=== PATIENT | male | born 1930 | race Caucasian/White ===

== ENCOUNTER 2019-04-27 18:06 | Inpatient (IN) | payer OTHER ==
--- NOTE | 2019-04-27 18:32 | PDOC ---
History of Present Illness - General Chief Complaint: Shortness of Breath Stated Complaint: ADMISION PE Time Seen by Provider: 04/27/19 18:31 Past History - Past Medical History Allergies/Adverse Reactions: Allergies Allergy/AdvReac Type Severity Reaction Status Date / Time No Known Allergies Allergy Unverified 04/27/19 18:11 Home Medications: Ambulatory Orders Aspirin [Aspir 81] 81 mg PO DAILY 07/26/12 Glucosamine/Chondro Wilson A [Cosamin Ds Tablet] 1 each PO DAILY tablet 07/26/12 Lutein 10 mg PO DAILY tablet 07/26/12 Preservision Softgel 1 each PO DAILY capsule 07/26/12 Amlodipine Besylate 2.5 mg PO DAILY tablet 11/25/16 Atorvastatin Calcium 20 mg PO DAILY tablet 11/25/16 Biotin 2,500 mcg PO ASDIR capsule 11/25/16 Budesonide [Budesonide Ec] 3 mg PO TID #7 11/25/16 Cyanocobalamin (Vitamin B-12) [B-12] 500 mcg PO DAILY tablet 11/25/16 Melatonin/Pyridoxine HCl (B6) [Melatonin 5 Mg Tablet] 1 each PO tablet Mesalamine [Lialda] 1.2 gm PO TID PRN 11/25/16 Gabapentin 100 mg PO QID #120 capsule 06/29/18 Gabapentin 300 mg PO QID 30 Days #120 capsule 07/20/18 Cancer: Yes COPD: Yes HTN: Yes Medical Decision Making - Medical Decision Making 04/27/19 18:34 HPI: 88yo M hx "25% aortic capacity" s/p TAVR 2 weeks ago at [facility] on Plavix, HTN, HLD, BPH, "peripheral vascular disease (s/p 2 groin stents)", emphysema, smoking, stage 4 lung CA (2016, s/p Keytiuda immunotherapy, no radiation or chemo), 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 Pt states had some SOB ever since surgery, but then worsened suddenly on Tuesday, at rest, constant, worsened since then, saw Dr Montoya yesterday, CTA today, states SOB resolved on own today. Denies chest pain, cough, wheezing, palpitations, leg swelling, calf tenderness, headache, lightheadedness, N/V, F/C , numbness/tingling, abdominal pain, diarrhea, weakness, hx DVT/PE, recent travel. States has been taking Plavix 75mg daily since surgery. Also c/o penile irritation x2wks that is getting ointment for. Endorse chronic lower back pain 2 /2 "L3-4 lesion". ROS: Constitutional: Negative for chills, fever, fatigue, diaphoresis. HENT: Negative for sore throat, rhinorrhea, congestion. Eyes: Positive for vision loss 2/2 macular degeneration. Respiratory: Positive for shortness of breath. Negative for cough, and wheezing. Cardiovascular: Negative for chest pain, palpitations, and leg swelling. Gastrointestinal: Negative for abdominal pain, blood in stool, constipation, diarrhea, nausea, and vomiting. Genitourinary: Positive for penile irritation. Negative for dysuria, flank pain , and hematuria. Musculoskeletal: Positive for chronic lower back pain. Negative for myalgias, and neck pain. Skin: Negative for rash. Neurological: Negative for light-headedness, dizziness, vertigo, syncope, weakness, numbness and headaches. Psychiatric/Behavioral: Negative for behavioral problems and confusion. PE: Gen: Alert, NAD, comfortable-appearing. HEENT: PERRL, EOMI, MMM, NCAT. No conjunctival pallor. Sclera are non-icteric. CV: Regular rate and rhythm. No murmurs, rubs, or gallops. PULM: No resp distress. CTAB, no wheezes, rales, or rhonchi. ABD: soft, NT/ND, no rebound tenderness or guarding, no CVA tenderness. BACK: +ttp l-spine. No TTP of c/t-spine. No step-offs or deformities. MSK: No bony deformities. 2+ pulses in all extremities. NEURO: AAOx3. PERRL. No gross CN deficits. Strength and sensation grossly intact throughout. EXTREMITIES: No cyanosis. No clubbing. No edema. No calf tenderness. PSYCH: Normal mood and thought pattern. SKIN: Warm and dry. Normal capillary refill. No rashes. No jaundice. 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 Hemodynamically stable, afebrile, lungs CTAB, asymptomatic at this time. CTA impression 04/27/19 16:44: An acute embolus is identified within the lateral segmental branch of the right lower lobe. A small wedge-shaped left apical pulmonary opacity is noted at the site of a prior 4.3 x 2.3 cm primary neoplastic lesion identified on a CT study of 12/25/2015. Status post interval immunotherapy by history. The currently identified opacity is suggestive of focal scarring. Correlate with the results of imaging studies performed at a different facility. Status post interval transcatheter aortic valve implantation. The exam partially images the L3 vertebral body which demonstrates evidence of a fracture which is probably acute to subacute. SOB consistent with known PE from CTA. Also consider and evaluate for other etiologies such as CHF, PNA, COPD exacerbation, ACS/AL, arrhythmia, metabolic derangement, or anemia. Dr Caballero spoke with Dr Montoya for recs and admitted to hospitalist. -PE tx: heparin drip -Labs reviewed - add coags, T&S, Mg, cardiac profile, BNP, CXR, EKG -EKG: sinus rhythm w/occasional PVCs, 71bpm, normal intervals, normal axis, no e /o acute ischemia -Signed out to admitting team. Discharge - Discharge Information Problems reviewed: Yes Clinical Impression/Diagnosis: Pulmonary embolism Condition: Fair - Admission Yes - Follow up/Referral Referrals: Nasim Disla MD [Primary Care Provider] - - Patient Discharge Instructions - Post Discharge Activity
--- NOTE | 2019-04-27 18:34 | PDOC ---
Attending Attestation - Resident Resident Name: Catrina Greenezabeth - ED Attending Attestation I have performed the following: I have examined & evaluated the patient, The case was reviewed & discussed with the resident, I agree w/resident's findings & plan - HPI HPI: 04/27/19 19:02 88-year-old male with history of hypertension, hyperlipidemia, aortic stenosis status post TAVR (at [facility]), COPD, GERD, BPH presenting with progressive worsening of shortness of breath, x2 weeks since before his TAVR procedure, has been worsened over the past 4 days. He had outpatient studies done including CT scan which showed right-sided segmental PE, stable due to normal echocardiographic findings. Sent in for admission, anticoagulation PMD Dr Disla Cards Dr Montoya 04/27/19 19:54 04/27/19 20:17 - Physicial Exam PE: 04/27/19 18:34 Agree with the resident's HPI and PE as documented in the electronic medical record. NAD, elderly male, pleasant. EOMI, PERRL, nl conjunctiva, anicteric; neck supple. lungs clear, no respiratory distress. holosystolic murmur, normal rate, abdomen soft nontender. no rebound, guarding. Back nontender. LEDESMA x4, no focal neuro deficits. No peripheral edema. normal color for ethnicity, WWP. no calf tenderness. 04/27/19 19:52 04/27/19 20:17 - Medical Decision Making 04/27/19 19:00 Vital Signs Temp Pulse Resp BP Pulse Ox 98.4 F 76 18 157/63 100 04/27/19 18:11 04/27/19 18:11 04/27/19 18:11 04/27/19 18:11 04/27/19 18:11 Vital Signs Temp Pulse Resp BP Pulse Ox 98.4 F 76 18 157/63 100 04/27/19 18:11 04/27/19 18:11 04/27/19 18:11 04/27/19 18:11 04/27/19 18:11 VS reviewed wnl, mildly hypertensive, normal sats, no respiratory distress. HR normal. CT angios chest done earlier today as an outpatient with acute embolus involving the lateral segment branch of the right lower lobe, there is a small wedge-shaped left apical pulmonary opacity. This could be focal scarring. Tab are seen, partial images of L3 fracture is probably acute to subacute but patient is nontender there are no recent falls Laboratory results from earlier today were done with baseline creatinine 1.4 electrolytes are within normal limits. Cardiac profile is sent, to check for troponin/BNP for RV strain. bnp/trop unremarkable. Echo from outpatient done today, which showed normal LV function and no evidence of RV strain, EF is 50 to 55% status post TAVR, RV systolic pressure is within normal limits. spoke with Dr Montoya, Administrative Receptionist who sent in patient. agree with heparin gtt at 800 units/hr, given weight is low <54 kg, stable PE, admission admit to hospitalist service, tele monitor to dr Mederos, s/o to Dr Elder resident 04/27/19 20:14 04/27/19 20:15 04/27/19 20:17 Heart Score/ECG Review #1 ECG reviewed & interpreted by me at: 18:30 General ECG Interpretation: Sinus Rhythm, Normal Rate, Normal Intervals 04/27/19 19:01 EKG sinus rhythm at 71 bpm, intermittent PVCs, normal intervals, narrow QRS, nonspecific T wave abnormalities, some limitations with artifact
[2019-04-27] MEDS ORDERED: HEPARIN NA (PORCINE) 5,000 UNITS/ML 1ML VIAL IVPUSH ONE (19:06)
--- NOTE | 2019-04-27 19:17 | PN ---
Teaching Attending Note Name of Resident: Vincent Sarabia ATTENDING PHYSICIAN STATEMENT I saw and evaluated the patient. I reviewed the resident's note and discussed the case with the resident. I agree with the resident's findings and plan as documented. 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 SOB has worsened over the past 4 days and he got outpatient Chest/Thorax CTA which showed right-sided segmental PE and subacute/acute L3 vertebral body fracture. He had an ECHO which showed normal echocardiographic findings. Sent in for admission and heparin drip. Denies alcohol or illicit drug use. No recent travels. OBJECTIVE: Alert Vital Signs Period Temp Pulse Resp BP Sys/Martin Pulse Ox Last 24 Hr 98.4 F 76 18 157/63 100-100 HEENT: No Jaundice, eye redness or discharge, PERRLA, EOMI. Normocephalic, atraumatic. External ears are normal and hearing is grossly intact. No nasal discharge. Neck: Supple, nontender. No palpable adenopathy or thyromegaly. No JVD Chest: Good effort. Clear to auscultation and percussion. Heart: Regular. No S3, rub or murmur Abdomen: Not distended, soft, nontender and no HSM. No rebound or guarding. Normal bowel sounds. Ext: Peripheral pulses intact. No leg edema. Skin: Warm and dry. No petechiae, rash or ecchymosis. Neuro: Alert. Oriented x3. CN 2-12 grossly intact. Sensation grossly intact in all four extremities and DTR are symmetric. Psych: Appropriate mood and affect. Good insight. Current Medications Generic Name Dose Route Start Last Admin Trade Name Freq PRN Reason Stop Dose Admin Heparin Sodium (Porcine) 25, 500 mls @ 16 mls/hr 04/27/19 19:15 000 unit/ Sodium Chloride IV TITR DAVONTE Protocol 800 UNIT/HR Home Medications Medication Instructions Recorded Aspirin [Aspir 81] 81 mg PO DAILY 07/26/12 Glucosamine/Chondro Wilson A [Cosamin 1 each PO DAILY tablet 07/26/12 Ds Tablet] Lutein 10 mg PO DAILY tablet 07/26/12 Preservision Softgel 1 each PO DAILY capsule 07/26/12 Amlodipine Besylate 2.5 mg PO DAILY tablet 11/25/16 Atorvastatin Calcium 20 mg PO DAILY tablet 11/25/16 Biotin 2,500 mcg PO ASDIR capsule 11/25/16 Budesonide [Budesonide Ec] 3 mg PO TID #7 11/25/16 Cyanocobalamin (Vitamin B-12) 500 mcg PO DAILY tablet 11/25/16 [B-12] Melatonin/Pyridoxine HCl (B6) 1 each PO tablet 11/25/16 [Melatonin 5 Mg Tablet] Mesalamine [Lialda] 1.2 gm PO TID PRN 11/25/16 Gabapentin 100 mg PO QID #120 capsule 06/29/18 Gabapentin 300 mg PO QID 30 Days #120 capsule 07/20/18 Laboratory Tests 04/27/19 18:51 PT with INR 13.30 H INR 1.13 H PTT (Actin FS) 26.7 ASSESSMENT AND PLAN: 1. Pulmonary embolism - Outpatient Chest/Thorax CTA showed right-sided segmental PE and subacute/acute L3 vertebral body fracture. Patient started on IV heparin drip. EKG is pending. Will consult cardiology and pulmonary. Consult Ortho for vertebral fracture. Will continue comprehensive care for all of patients comorbid conditions including Oncology follow up for lung cancer.. 2. CKD? - Cause unclear - need nephrologic work up. Will consult nephrology and avoid nephrotoxic agents such as NSAIDS, aminoglycosides, contrast dyes and certain Alternative medicine products. 3. Anemia - Likely partly due to renal failure. Will do basic anemia work up including serial stool guaiacs, reticulocyte count and iron studies. 4. Hypertension - Restart suitable outpatient antihypertensive drugs when clinically appropriate. Revise regimen to ensure [id number] excellent BP control and clinical counselor patient on the injurious effects of uncontrolled hypertension. Nonpharmacologic measures to control hypertension like weight loss , salt restriction and exercise discussed. Importance of adherence to treatment regimen and attainment of normotension emphasized. 5. Tobacco Use Counseled on risks associated with tobacco use. We will provide patient all the necessary assistance to facilitate smoking cessation and prescribe Nicotine patch. 6. DVT prophylaxis - On IV Heparin drip. 7. Advance directives - Full code
[2019-04-27 19:28] LABS: INR 1.13 (0.83-1.09); PROTHROMBIN TIME (PATIENT) 13.3 SEC (9.7-13.0)
[2019-04-27 19:30] LABS: ACTIVATED PTT 26.7 SECONDS (25.2-36.5)
[2019-04-27] MEDS ORDERED: HEPARIN INFUSION - 25,000 UNITS/500 ML INFUS.BAG IVPB ONE (19:47)
[2019-04-27] MEDS: HEPARIN - 25,000 UNIT in SODIUM CHLORIDE 495 ML IV SCH (20:01)
[2019-04-27 20:09] LABS: MAGNESIUM 2.5 mg/dL (1.8-2.4)
[2019-04-27] MEDS: SODIUM CHLORIDE 1,000 ML IV SCH (21:07)
--- NOTE | 2019-04-27 22:17 | HP ---
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 Pt has complaint of SOB at rest, ever since his TAVR which is different from his pre-op SOB at exertion. Denies cough, orthopnea, sick contacts, h/o PE. SOB at rest prompted outpt visit w/ Dr Montoya on 04/26/19. Dr Montoya ordered outpt CTA chest which the patient completed on 04/27/19. Referred to the ED from the Radiology Suite. Pt and pt's endorse uncomplicated TAVR, uncomplicated post-TAVR course with a ~4d admission. Pt reached out to Dr Del Valle and was told that SOB at rest was not worrisome. At baseline, pt ambulates with cane. Post-operatively, ambulates with walker. Lives alone with . Daughter lives ~10mins away. Has VNS 3x/ weekly, home PT 3x/weekly. 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, dx 2015, s/p RT and Keytruda w/ chemoradiation course complicated by pneumonitis--resolved and colitis--resolved), Aortic Stenosis s/p TAVR( [place], 04/20/19) PAST SURGICAL HISTORY: b/l cataracts b/l iliac angioplasty + stents TAVR([facility], 04/20/19) Social History: Smoking: tobacco since 13y/o(cigarettes then pipe) Alcohol: 1/4 - 1glass w/ meals; several times a week Drugs: denies Allergies No Known Allergies Allergy (Unverified 04/27/19 18:11) HOME MEDICATIONS: Home Medications Medication Instructions Recorded Aspirin [Aspir 81] 81 mg PO DAILY 07/26/12 Lutein 10 mg PO DAILY tablet 07/26/12 Atorvastatin Calcium 20 mg PO DAILY tablet 11/25/16 Biotin 5,000 mcg PO ASDIR capsule 11/25/16 Clopidogrel Bisulfate [Plavix] 75 mg PO ONCE 04/27/19 Famotidine [Pepcid] 40 mg PO BID 04/27/19 Olmesartan Medoxomil [Benicar] 5 mg PO ONCE 04/27/19 Tizanidine HCl 2 mg PO HS 04/27/19 REVIEW OF SYSTEMS CONSTITUTIONAL: generalized weakness Absent: fever, chills, diaphoresis, malaise, loss of appetite, weight change HEENT: Absent: rhinorrhea, nasal congestion, throat pain, throat swelling, difficulty swallowing, mouth swelling, ear pain, eye pain, visual changes CARDIOVASCULAR: Absent: chest pain, syncope, palpitations, irregular heart rate, lightheadedness , peripheral edema RESPIRATORY: shortness of breath at rest Absent: cough, dyspnea with exertion, orthopnea, wheezing, stridor, hemoptysis GASTROINTESTINAL: constipation Absent: abdominal pain, abdominal distension, nausea, vomiting, diarrhea, melena , GENITOURINARY: Absent: dysuria, frequency, urgency, hesitancy, hematuria, flank pain, genital pain MUSCULOSKELETAL: Absent: myalgia, arthralgia, joint swelling, back pain, neck pain SKIN: Absent: rash, itching, pallor NEUROLOGIC: Absent: headache, focal weakness or paresthesias, dizziness, unsteady gait, seizure, mental status changes, bladder or bowel incontinence PHYSICAL EXAMINATION Vital Signs - 24 hr 04/27/19 04/27/19 18:08 18:11 Temperature 98.4 F Pulse Rate 76 Respiratory 18 Rate Blood Pressure 157/63 O2 Sat by Pulse 100 100 Oximetry (%) GENERAL: Awake, alert, and fully oriented. NAD HEAD: NC/AT. No temporal wasting EYES: Pupils equal, round and reactive to light, extraocular movements intact, sclera anicteric, conjunctiva clear. No lid lag. EARS, NOSE, THROAT: Poor dentition. Ears normal, nares patent. Moist mucous membranes. NECK: Normal range of motion, supple without lymphadenopathy, JVD, or masses. LUNGS: Breath sounds equal, clear to auscultation bilaterally. No wheezes, and no crackles. No accessory muscle use. Not on supplemental O2 HEART: Regular rate and rhythm, normal S1 and S2 without murmur, rub or gallop. ABDOMEN: Soft, nontender, not distended, no guarding, no rebound, no masses. MUSCULOSKELETAL: Normal range of motion at all joints. No bony deformities or tenderness. No CVA tenderness. UPPER EXTREMITIES: 2+ pulses, warm, well-perfused. No cyanosis. No peripheral edema. LOWER EXTREMITIES: 2+ pulses, warm, well-perfused. No calf tenderness. No peripheral edema. Right groin with steristrip bandages from femoral access. Femoral pulses 2+ NEUROLOGICAL: Cranial nerves II-XII intact. Normal speech. Gait not observed SKIN: Warm, dry, normal turgor, no rashes or lesions noted, normal capillary refill. Laboratory Results - last 24 hr 04/27/19 04/27/19 04/27/19 18:51 18:51 18:51 PT with INR 13.30 H INR 1.13 H PTT (Actin FS) 26.7 Magnesium 2.5 H Creatine Kinase 67 Troponin I < 0.02 B-Natriuretic Peptide 522.5 H Blood Type Antibody Screen 04/27/19 18:51 PT with INR INR PTT (Actin FS) Magnesium Creatine Kinase Troponin I B-Natriuretic Peptide Blood Type A POSITIVE Antibody Screen Negative ASSESSMENT/PLAN: 88M w/ pmh of hearing deficiency, GERD, HTN, chronic tobacco usage, Lung Ca(dx 2016, s/p RT and Keytruda w/ chemoradiation course complicated by pneumonitis-- resolved and colitis--resolved), Aortic Stenosis s/p TAVR([facility], ) referred to ED by Dr Fisher d/t CTA Chest showing RLL segmental branch PE. Presented with complaint of shortness of breat at rest. Vitals in ED show nontachycardic, nontachypneic. EKG w/ intermittent PVC. Echo w/ LVEF 50-55%. CTA showing RLL segmental PE. Troponin neg x1. BNP ~ 522. #Pulmonary Embolism > CTA chest(04/27/19): RLL lateral segmental branch embolus, wedge-spaced opacity at Left pumonary apex(4.3 x 2.3)chronic Right apical pleural parenchymal , acute-subacute fracture of L3 vertebral body > EKG(04/27/19): NSR, occasional PVC, QTc 421 > Echo(04/27/19): LVEF 50-55%, impaired LV relaxation, borderline dilated LA > troponin neg x1 > BNP 522 - fu AM troponin - heparin gtt #Aortic Stenosis --s/p TAVR - echo w/o signs of significant AR, #Lung Ca w/ metastasis to L-spine --remission according to pt's --not an active issue - monitor # L3 acute-subacute fracture --possibly 2/2 previous l-spine mets - consider Ortho consult Visit type - Emergency Visit Emergency Visit: Yes ED Registration Date: 04/27/19 Care time: The patient presented to the Emergency Department on the above date and was hospitalized for further evaluation of their emergent condition. - New Patient This patient is new to me today: Yes Date on this admission: 04/28/19 - Critical Care Critical Care patient: No ATTENDING PHYSICIAN STATEMENT I saw and evaluated the patient. I reviewed the resident's note and discussed the case with the resident. I agree with the resident's findings and plan as documented. SUBJECTIVE: OBJECTIVE: ASSESSMENT AND PLAN:
--- NOTE | 2019-04-28 07:30 | CON.CARD ---
Consult Consult Specialty:: cardio - History of Present Illness Chief Complaint: sob History of Present Illness: 88 M with sob. pt followed closely by me in office for asymptomatic severe for > 1 yr, as well as lung cancer s/p immunotherapy at [facility] with minimal residual dz that has been stable on serial PET imaging. longtime former smoker, no formal dx of copd. has become very deconditioned and frail since treated for lung cancer. has developed severe pain of R hip/upper LE of ? neuropathic etiology (seen by several consultants)--on tizanidine for this with improvement developed sob 02/24 at rest, aggravated by exertion. saw pulm at [facility], allegedly rx'd inhalers, ? PFT results saw TAVR team at [facility] who reported to family that PFTs were underwhelming and rec'd TAVR--completed 04/12. postop course uneventful, discharged 04/14. pt and family noted sob never improved post-TAVR. ditto for worsened fatigue. on 04/24 he was noticeably more breathless at rest than usual. also noted wheezing at times. signif tachypnea with activity. he declined ER evaluation at that time. could not come to see me in office the next day b/c required assistance to travel--came 04/26. ECG then with mild sinus tach (90s), new mild nonspecific ST-Ts. sat 98-99% rest and after symptomatic ambulation. euvolemic. declined hosp admit. had echo and CTA at hospital yesterday: echo normal LV and RV, normal TAVR function (trace AI), no peric effusion. CTA with segmental PE--referred to ER, started on UFH gtt currently no sob or cp. c/o urinary hesitancy/obstruction PMH: CKD PAD s/p LE intervention remotely HTN HPL colitis - Alcohol/Substance Use Hx Alcohol Use: No - Smoking History Smoking history: Current every day smoker Have you smoked in the past 12 months: Yes Home Medications - Allergies Allergies/Adverse Reactions: Allergies Allergy/AdvReac Type Severity Reaction Status Date / Time No Known Allergies Allergy Unverified 04/27/19 18:11 - Home Medications Home Medications: Ambulatory Orders Aspirin [Aspir 81] 81 mg PO DAILY 07/26/12 Lutein 10 mg PO DAILY tablet 07/26/12 Atorvastatin Calcium 20 mg PO DAILY tablet 11/25/16 Biotin 5,000 mcg PO ASDIR capsule 11/25/16 Clopidogrel Bisulfate [Plavix] 75 mg PO ONCE 04/27/19 Famotidine [Pepcid] 40 mg PO BID 04/27/19 Olmesartan Medoxomil [Benicar] 5 mg PO ONCE 04/27/19 Tizanidine HCl 2 mg PO HS 04/27/19 Family Medical History Family History: Denies (no known cmp) Review of Systems - Review of Systems Constitutional: denies: Chills, Fever Eyes: denies: Eye Pain HENT: denies: Nasal Congestion Neck: denies: Stiffness Cardiovascular: denies: Palpitations Respiratory: denies: Orthopnea, PND Gastrointestinal: denies: Diarrhea, Rectal Bleeding Genitourinary: denies: Burning, Hematuria Musculoskeletal: denies: Muscle Pain Integumentary: denies: Rash Neurological: denies: Numbness, Seizure, Syncope Endocrine: denies: Excessive Sweating Hematology/Lymphatic: denies: Excessive Bleeding Vital Signs: Vital Signs Temperature 97.9 F 04/28/19 05:25 Pulse Rate 63 04/28/19 05:25 Respiratory Rate 17 04/28/19 05:25 Blood Pressure 132/41 L 04/28/19 05:25 O2 Sat by Pulse Oximetry (%) 99 04/27/19 22:00 Constitutional: Yes: Well Nourished, No Distress Eyes: No: Sclera Icterus HENT: No: Nasal Congestion Neck: No: Decreased ROM Respiratory: Yes: CTA Bilaterally. No: Accessory Muscle Use, Rales, Wheezes Gastrointestinal: Yes: Normal Bowel Sounds, Tenderness (+ suprapubic region). No: Distention, Hepatomegaly, Palpable Mass Cardiovascular: Yes: Regular Rate and Rhythm JVD: No Carotid Bruit: No PMI: Non-Displaced Heart Sounds: Yes: S1, S2. No: Gallop Murmur: No: Systolic Murmur, Diastolic Murmur Musculoskeletal: Yes: Other (No kyphosis) Extremities: No: Cool, Cyanosis Edema: No Peripheral Pulses: 2+ Left Carotid, 2+ Right Carotid, 2+ Left Doralis Pedis, 2+ Right Dorsalis Pedis Integumentary: No: Jaundice Neurological: Yes: Alert, Oriented (x3) Psychiatric: No: Agitated - Other Data Labs, Other Data: INR, PTT INR 1.13 (0.83-1.09) H 04/27/19 18:51 Troponin, BNP 04/27/19 04/27/19 18:51 18:51 Troponin I < 0.02 B-Natriuretic Peptide 522.5 H Troponin, BNP 04/27/19 04/27/19 18:51 18:51 Troponin I < 0.02 B-Natriuretic Peptide 522.5 H Assessment/Plan Echo 04/27/19: nl LVEF. nl RV. trace AI s/p TAVR. no pulm HTN ECG: NSR, normal axis, PVCs. no q's or ST-T tele: NSR, PVCs PE (segmental branch): -no RV enlargement/hypo. BNP 500 (low GFR). trop negative. no hypotension. -normal sats on RA -provoked by lung malignancy and prolonged sedentary status -however, since these risk factors are likely permanent, he likely would benefit from indefinite AC: ? NOAC vs lovenox (given malignancy-associated)-- duration and choice of AC agent will be deferred to heme-onc h/o urinary obstruction: -had retention s/p TAVR 04/13, also dx'd with phymosis there--being treated with local cream -currently c/o urine stream obstruction, suspect bladder enlarged with tenderness -had very traumatic jackson attempt by RN at [place]--would consult for jackson insertion -please reconcile home meds (he is on an alpha carisa and ? finasteride)-- resume regimen s/p TAVR: -normal valve fxn HTN: -on olmesartan 5 qd at home -bp stable here, same meds CKD: -creat ranges 1.2-1.4 -improved today s/p IVF--cont fluids x 24 hrs from contrast--until 5 pm 04/28 anemia: -post-TAVR hgb 10's, improved here -observe trend on AC lung cancer: -stable, minimal dz s/p immunotherapy -per onc ([facility]) ? copd: -suspect the chronic component of his sob at rest for 2 mo, which did not improve post-TAVR is copd related. has plans for outpt pulm eval
[2019-04-28 07:34] LABS: BASO % 0.9 % (0-2.0); EOS % 2.8 % (0-4.5); HEMATOCRIT 28.4 % (35.4-49); HEMOGLOBIN 9.2 GM/dL (11.7-16.9); LYMPH % 13.2 % (8-40); MCH 24.6 pg (25.7-33.7); MCHC 32.6 g/dl (32.0-35.9); MEAN CELL VOLUME 75.4 fl (80-96); MEAN PLT VOLUME 8.9 fl (7.5-11.1); MONO % 8.2 % (3.8-10.2); NEUT % 74.9 % (42.8-82.8); PLATELET COUNT 211 K/MM3 (134-434); RBC 3.77 M/mm3 (4.00-5.60); RDW 17.5 % (11.9-15.9); WHITE BLOOD COUNT 6.5 K/mm3 (4.0-10.0)
[2019-04-28 09:20] LABS: CALCIUM 7.3 mg/dL (8.5-10.1); CREATININE 1.1 mg/dL (0.55-1.3); MAGNESIUM 2.1 mg/dL (1.8-2.4); PHOSPHOROUS 3.7 mg/dL (2.5-4.9)
[2019-04-28] MEDS: TAMSULOSIN HCL 0.4 MG CAP PO SCH (11:40)
[2019-04-28] MEDS: FINASTERIDE 5 MG TABLET (FP) PO SCH (11:40)
[2019-04-28] MEDS: CLOPIDOGREL BISULFATE 75 MG TABLET (FP) PO SCH (11:40)
[2019-04-28] MEDS: HEPARIN - 25,000 UNIT in SODIUM CHLORIDE 495 ML IV SCH (12:31)
--- NOTE | 2019-04-28 13:22 | CON.PULM ---
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 Reports shortness of breath without chest pain. No palpitations. No fevers, chills or sweats. No cough or wheezing. No prior clots. Mostly sedentary in a chair at home. Walks with a walker. Smokes pipes. - History Source History Provided By: Patient, Family Member Limitations to Obtaining History: No Limitations - Past Medical History Cardio/Vascular: Yes: Aortic Stenosis, HTN - Alcohol/Substance Use Hx Alcohol Use: No - Smoking History Smoking history: Current every day smoker Have you smoked in the past 12 months: Yes Home Medications - Allergies Allergies/Adverse Reactions: Allergies Allergy/AdvReac Type Severity Reaction Status Date / Time No Known Allergies Allergy Unverified 04/27/19 18:11 - Home Medications Home Medications: Ambulatory Orders Aspirin [Aspir 81] 81 mg PO DAILY 07/26/12 Lutein 10 mg PO DAILY tablet 07/26/12 Atorvastatin Calcium 20 mg PO DAILY tablet 11/25/16 Biotin 5,000 mcg PO ASDIR capsule 11/25/16 Clopidogrel Bisulfate [Plavix] 75 mg PO ONCE 04/27/19 Famotidine [Pepcid] 40 mg PO BID 04/27/19 Olmesartan Medoxomil [Benicar] 5 mg PO ONCE 04/27/19 Tizanidine HCl 2 mg PO HS 04/27/19 Review of Systems - Review of Systems Constitutional: reports: Weakness. denies: Chills, Fever Eyes: denies: Recent Change in Vision HENT: denies: Nasal Congestion, Throat Pain Neck: denies: Stiffness, Tenderness Cardiovascular: reports: Shortness of Breath. denies: Chest Pain, Edema, Palpitations Respiratory: reports: SOB on Exertion. denies: Cough, Hemoptysis, Wheezing Gastrointestinal: denies: Abdominal Pain, Nausea, Vomiting Genitourinary: denies: Dysuria, Hematuria Neurological: denies: Dizziness, Headache Endocrine: denies: Unexplained Weight Loss Physical Exam Vital Sings: Vital Signs Temperature 97.6 F 04/28/19 09:00 Pulse Rate 66 04/28/19 09:00 Respiratory Rate 18 04/28/19 09:00 Blood Pressure 136/51 L 04/28/19 09:00 O2 Sat by Pulse Oximetry (%) 99 04/28/19 09:00 Constitutional: Yes: Calm Eyes: Yes: Conjunctiva Clear, EOM Intact HENT: Yes: Atraumatic, Normocephalic Neck: Yes: Supple, Trachea Midline Cardiovascular: Yes: Regular Rate and Rhythm Respiratory: Yes: Diminished (decreased breath sounds at the bases) ...Clubbing: No Gastrointestinal: Yes: Normal Bowel Sounds, Soft. No: Tenderness Edema: No Neurological: Yes: Alert, Oriented Labs: CBC, BMP 04/28/19 07:03 04/28/19 07:03 Imaging - Results Chest X-ray: Report Reviewed, Image Reviewed Cat Scan: Report Reviewed, Image Reviewed (MINO scarring, RLL subsegmental PE) Problem List - Problems (1) Pulmonary embolism Code(s): I26.99 - OTHER PULMONARY EMBOLISM WITHOUT ACUTE COR PULMONALE Assessment/Plan Acute Subsegmental Pulmonary Emboli Recent TAVR LV Diastolic Dysfunction h/o Metastatic Lung Ca Hyperlipidemia HTN BPH - continue anticoagulation - LE dopplers - inhaled bronchodilators as needed - O2 to keep SpO2>90% - hematology consulted for choice of anticoagulation given history of lung cancer Thank you for this consult Travis Arauz MD
--- NOTE | 2019-04-28 14:12 | EKG ---
Test Reason : Blood Pressure : / mmHG Vent. Rate : 071 BPM Atrial Rate : 071 BPM P-R Int : 122 ms QRS Dur : 068 ms QT Int : 388 ms P-R-T Axes : 000 036 055 degrees QTc Int : 421 ms SINUS RHYTHM WITH OCCASIONAL PREMATURE VENTRICULAR COMPLEXES OTHERWISE NORMAL ECG NO PREVIOUS ECGS AVAILABLE Confirmed by NAUN HUNT MD ([id number]) on 04/28/2019 2:12:26 PM Referred By: Confirmed By:NAUN HUNT MD
--- NOTE | 2019-04-28 16:50 | PN ---
Progress Note (short form) - Note Progress Note: Patient is feeling better with no acute distress. Vital Signs Temperature 98.1 F 04/28/19 14:35 Pulse Rate 64 04/28/19 14:35 Respiratory Rate 16 04/28/19 14:35 Blood Pressure 140/58 L 04/28/19 14:35 O2 Sat by Pulse Oximetry (%) 99 04/28/19 09:00 GENERAL: The patient is awake, alert, and fully oriented, in no acute distress. HEAD: Normal with no signs of trauma. EYES: PERRL, extraocular movements intact, sclera anicteric, conjunctiva clear. ENT: Ears normal, oropharynx clear without exudates, moist mucous membranes. NECK: Trachea midline, full range of motion, supple. LUNGS: Breath sounds equal, clear to auscultation bilaterally, no wheezes, no crackles, no accessory muscle use. HEART: Regular rate and rhythm, S1, S2 without murmur, rub or gallop. ABDOMEN: Soft, Nt,ND, normoactive bowel sounds, no guarding, no rebound, no hepatosplenomegaly, no masses. EXTREMITIES: 2+ pulses, warm, well-perfused, no edema. NEUROLOGICAL: Cranial nerves II through XII grossly intact. Normal speech, gait not observed. PSYCH: Normal mood, normal affect. SKIN: Warm, dry, normal turgor, no rashes or lesions noted CBCD WBC 6.5 K/mm3 (4.0-10.0) 04/28/19 07:03 RBC 3.77 M/mm3 (4.00-5.60) L 04/28/19 07:03 Hgb 9.2 GM/dL (11.7-16.9) L 04/28/19 07:03 Hct 28.4 % (35.4-49) L D 04/28/19 07:03 MCV 75.4 fl (80-96) L 04/28/19 07:03 MCHC 32.6 g/dl (32.0-35.9) 04/28/19 07:03 RDW 17.5 % (11.9-15.9) H 04/28/19 07:03 Plt Count 211 K/MM3 (134-434) D 04/28/19 07:03 MPV 8.9 fl (7.5-11.1) 04/28/19 07:03 CMP Sodium 142 mmol/L (136-145) 04/28/19 07:03 Potassium 4.0 mmol/L (3.5-5.1) 04/28/19 07:03 Chloride 116 mmol/L (98-107) H 04/28/19 07:03 Carbon Dioxide 18 mmol/L (21-32) L 04/28/19 07:03 Anion Gap 9 MMOL/L (8-16) 04/28/19 07:03 BUN 28.0 mg/dL (7-18) H 04/28/19 07:03 Creatinine 1.1 mg/dL (0.55-1.3) 04/28/19 07:03 Random Glucose 83 mg/dL (74-106) 04/28/19 07:03 Calcium 7.3 mg/dL (8.5-10.1) L 04/28/19 07:03 CARDIAC ENZYMES Creatine Kinase 67 U/L (26-308) 04/27/19 18:51 Troponin I 0.03 ng/ml (0.00-0.05) 04/28/19 07:03 Current Medications Generic Name Dose Route Start Last Admin Trade Name Freq PRN Reason Stop Dose Admin Aspirin 81 mg 04/29/19 10:00 Ecotrin - PO DAILY [facility] Atorvastatin Calcium 20 mg 04/28/19 22:00 Lipitor - PO HS [facility]ON[facility] Clopidogrel Bisulfate 75 mg 04/28/19 11:30 04/28/19 11:40 Plavix - PO 75 mg DAILY [facility] Administration Clotrimazole 1 applic 04/28/19 22:00 Lotrimin 1% Cream - TP BID [facility]ONTE Finasteride 5 mg 04/28/19 11:30 04/28/19 11:40 Proscar - PO 5 mg DAILY [facility] Administration Heparin Sodium (Porcine) 25, 500 mls @ 16 mls/hr 04/27/19 19:15 04/28/19 12: 31 000 unit/ Sodium Chloride IV 850 unit/hr TITR [facility]ONTE 17 mls/hr Administration Protocol 800 UNIT/HR Sodium Chloride 1,000 mls @ 75 mls/hr 04/27/19 20:30 04/27/19 21:07 Normal Saline - IV 75 mls/hr ASDIR [facility] Administration Tamsulosin HCl 0.4 mg 04/28/19 11:30 04/28/19 11:40 Flomax - PO 0.4 mg 0830 [facility] Administration Valsartan 40 mg 04/29/19 10:00 Diovan - PO DAILY [facility] Home Medications Medication Instructions Recorded Aspirin [Aspir 81] 81 mg PO DAILY 07/26/12 Lutein 10 mg PO DAILY tablet 07/26/12 Atorvastatin Calcium 20 mg PO DAILY tablet 11/25/16 Biotin 5,000 mcg PO ASDIR capsule 11/25/16 Clopidogrel Bisulfate [Plavix] 75 mg PO ONCE 04/27/19 Famotidine [Pepcid] 40 mg PO BID 04/27/19 Olmesartan Medoxomil [Benicar] 5 mg PO ONCE 04/27/19 Tizanidine HCl 2 mg PO HS 04/27/19 Clotrimazole 15 gm TP BID 04/28/19 CTA Chest: RLL segmental branch PE Echo w/ LVEF 50-55%. Asessment and plan: Patient is an 88yo male with pmhX OF GERD, HTN, tobacco dependency , Lung Ca (dx 2015, s/p RT and Keytruda w/ chemoradiation course ), Aortic Stenosis s/p TAVR ( 04/20/19) referred to ED by Dr Fisher d/t . Presented with SOB and was found to have RLL PE. CTA showing RLL segmental PE. #Pulmonary Embolism: RLL lateral segmental branch embolus on heparin gtt continue #Aortic Stenosis --s/p TAVR, echo w/o signs of significant AR, , cardio is on the case #Lung Ca w/ metastasis to L-spine ; will get oncology consult dr Wilkinson. # L3 acute-subacute fracture --possibly due to L-spine mets # Hx of urinary obstruction: had retention s/p TAVR 04/13, also dx'd with phymosis there; being treated with local cream lotrimin as per Dr. Montoya's note: patient has an enlarged bladder s/p traumatic jackson attempt by RN at [place]--would consult for jackson insertion s/p TAVR: normal valve fxn DVt Px Heparin Visit type - Emergency Visit Emergency Visit: Yes ED Registration Date: 04/27/19 Care time: The patient presented to the Emergency Department on the above date and was hospitalized for further evaluation of their emergent condition. - New Patient This patient is new to me today: Yes Date on this admission: 04/28/19 - Critical Care Critical Care patient: No - Discharge Referral Referred to [facility] No
--- NOTE | 2019-04-28 19:37 | CONSULT ---
Consult Consult Specialty:: Heme/onc Referred by:: Dr. Mederos Reason for Consultation:: PE - History of Present Illness Chief Complaint: SOB History of Present Illness: 88M with HTN, HLD, BPH, metastatic lung cancer, and severe s/p TAVR on , on DAPT, admitted with worsening shortness of breath for 2 weeks. Outpatient CTA showed right-sided segmental PE and subacute/acute L3 vertebral body fracture. Admitted and started on UFH. Pt is followed at [place] for lung cancer by Dr. Landry. Per , he was diagnosed in 2016 and treated with Keytruda x several cycles and radiation to involved lumbar vertebrae. He has since been on surveillance with regular PET/ CT with stable disease and no further treatment. Records are not available. Continues to have SOB but denies chest pain. No prior history of VTE. Has had occasional epistaxis while on aspirin but no hx of significant GIB or ICH in the past. - Past Medical History Cardio/Vascular: Yes: Aortic Stenosis, HTN - Alcohol/Substance Use Hx Alcohol Use: No - Smoking History Smoking history: Current every day smoker Have you smoked in the past 12 months: Yes Home Medications - Allergies Allergies/Adverse Reactions: Allergies Allergy/AdvReac Type Severity Reaction Status Date / Time No Known Allergies Allergy Unverified 04/27/19 18:11 - Home Medications Home Medications: Ambulatory Orders Aspirin [Aspir 81] 81 mg PO DAILY 07/26/12 Lutein 10 mg PO DAILY tablet 07/26/12 Atorvastatin Calcium 20 mg PO DAILY tablet 11/25/16 Biotin 5,000 mcg PO ASDIR capsule 11/25/16 Clopidogrel Bisulfate [Plavix] 75 mg PO ONCE 04/27/19 Famotidine [Pepcid] 40 mg PO BID 04/27/19 Olmesartan Medoxomil [Benicar] 5 mg PO ONCE 04/27/19 Tizanidine HCl 2 mg PO HS 04/27/19 Clotrimazole 15 gm TP BID 04/28/19 Review of Systems - Review of Systems Constitutional: reports: Weakness (generalized) Cardiovascular: reports: Shortness of Breath. denies: Chest Pain Respiratory: reports: Exercise Intolerance, SOB, SOB on Exertion Gastrointestinal: denies: Melena, Rectal Bleeding Hematology/Lymphatic: reports: Easily Bruised Physical Exam Vital Signs: Vital Signs Temperature 98.1 F 04/28/19 14:35 Pulse Rate 64 04/28/19 14:35 Respiratory Rate 16 04/28/19 14:35 Blood Pressure 140/58 L 04/28/19 14:35 O2 Sat by Pulse Oximetry (%) 99 04/28/19 09:00 Constitutional: Yes: No Distress, Calm Eyes: Yes: Conjunctiva Clear Cardiovascular: Yes: Regular Rate and Rhythm Respiratory: Yes: Regular, CTA Bilaterally Gastrointestinal: Yes: Soft. 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 Stated on UFH. Discussed anticoagulation options with patient and -- Lovenox vs Eliquis ( for which there is less data when associated with cancer). would like to discuss with rest of family. Both are reasonable for [employer] continuous churn AC. Recommend switching from UFH to Lovenox 1 mg/kg BID. Would treat with Lovenox for 7 days to avoid high dose Eliquis (given concurrent DAPT), then can switch to Eliquis 5 mg BID if patient prefers. Would discuss with cardiology whether both aspirin and clopidogrel are needed now that patient is on AC. Patient also with iron deficiency anemia. Can give Venofer 200 mg daily x 5 while in the hospital or start PO supplementation if patient prefers. ? bleeding source.
[2019-04-28] MEDS: SODIUM CHLORIDE 1,000 ML IV SCH (22:00)
[2019-04-28] MEDS: ATORVASTATIN CA 20 MG TABLET (FP) PO SCH (22:00)
[2019-04-28] MEDS: CLOTRIMAZOLE 1% CREAM 15 GM TUBE TP SCH (22:03)
[2019-04-28] MEDS ORDERED: PT OWN MED DRAWER 7, Y5N ONE (23:24)
--- NOTE | 2019-04-29 08:44 | PN ---
Progress Note, Physician Chief Complaint: SOB History of Present Illness: no sob (remains in bed only) no cp no palpit, syncope no melena passing urine but feels like incomplete emptying. no suprapubic pain ex cigs - Current Medication List Current Medications: Active Medications Aspirin (Ecotrin -) 81 mg PO DAILY [facility] Atorvastatin Calcium (Lipitor -) 20 mg PO HS [facility] Last Admin: 04/28/19 22:00 Dose: 20 mg Clopidogrel Bisulfate (Plavix -) 75 mg PO DAILY [facility] Last Admin: 04/28/19 11:40 Dose: 75 mg Clotrimazole (Lotrimin 1% Cream -) 1 applic TP BID [facility] Last Admin: 04/28/19 22:03 Dose: 1 applic Finasteride (Proscar -) 5 mg PO DAILY [facility] Last Admin: 04/28/19 11:40 Dose: 5 mg Heparin Sodium (Porcine) 25, (000 unit/ Sodium Chloride) 500 mls @ 16 mls/hr IV TITR [facility]; Protocol Last Admin: 04/28/19 12:31 Dose: 850 unit/hr, 17 mls/hr Sodium Chloride (Normal Saline -) 1,000 mls @ 75 mls/hr IV ASDIR [facility] Last Admin: 04/28/19 22:00 Dose: 75 mls/hr Tamsulosin HCl (Flomax -) 0.4 mg PO 0830 [facility] Last Admin: 04/28/19 11:40 Dose: 0.4 mg Valsartan (Diovan -) 40 mg PO DAILY [facility] - Objective Vital Signs: Vital Signs Temperature 98.2 F 04/29/19 06:00 Pulse Rate 58 L 04/29/19 06:00 Respiratory Rate 20 04/29/19 06:00 Blood Pressure 135/60 04/29/19 06:00 O2 Sat by Pulse Oximetry (%) 99 04/28/19 20:59 Constitutional: Yes: No Distress, Calm Eyes: No: Sclera Icterus HENT: No: Nasal Congestion Cardiovascular: Yes: Regular Rate and Rhythm, S1, S2, Other (PMI non diplaced). No: JVD, Gallop, Murmur Respiratory: Yes: CTA Bilaterally. No: Accessory Muscle Use, Rales, Wheezes Gastrointestinal: Yes: Normal Bowel Sounds, Soft. No: Tenderness Musculoskeletal: Yes: Other (No kyphosis) Extremities: No: Cold, Cyanosis Edema: No Integumentary: No: Jaundice Neurological: Yes: Alert, Oriented (x3) Psychiatric: No: Agitated Labs: CBC, BMP 04/28/19 07:03 04/28/19 07:03 INR, PTT INR 1.13 (0.83-1.09) H 04/27/19 18:51 Assessment/Plan Echo 04/27/19: nl LVEF. nl RV. trace AI s/p TAVR. no pulm HTN ECG: NSR, normal axis, PVCs. no q's or ST-T tele: NSR, PVCs PE (segmental branch): -no RV enlargement/hypo. BNP 500 (low GFR). trop negative. no hypotension. -normal sats on RA -provoked by lung malignancy and prolonged sedentary status -onc input appreciated: rec lovenox or eliquis as reasonable long-term AC options. currently receiving wt based lovenox, pt and uneasy about administering this at home. rec teaching with pm dose tonight and if not comfortable, then can change to eliquis per heme rec anemia: -post-TAVR hgb 10's, 9s here, stable -iron indices c/w deficiency per heme -close monitoring of counts on AC--rpt ordered today -will pare back anti-PLT regimen once d/w TAVR team, as below h/o urinary obstruction: -had retention s/p TAVR 04/13, also dx'd with phymosis there--being treated with local cream -currently c/o urine stream incompletely emptying, back on home med regimen -had very traumatic jackson attempt by RN at [place], would need to insert -per hospitalist s/p TAVR: -normal valve fxn -will d/w structural valve team, likely will stop aspirin and use plavix along with AC agent for 6 mo duration HTN: -on olmesartan 5 qd at home -bp stable here, same meds CKD: -creat ranges 1.2-1.4 -improved today s/p IVF--cont fluids x 24 hrs from contrast--until 5 pm 04/28 lung cancer: -stable, minimal dz s/p immunotherapy -per onc ([facility]) ? copd: -suspect the chronic component of his sob at rest for 2 mo, which did not improve post-TAVR is copd related. has plans for outpt pulm eval
[2019-04-29] MEDS: ASPIRIN COATED 81 MG TABLET.EC PO SCH (09:48)
[2019-04-29] MEDS: VALSARTAN 40 MG TABLET (FP) PO SCH (09:48)
[2019-04-29] MEDS: TAMSULOSIN HCL 0.4 MG CAP PO SCH ×2 (09:48→21:11)
[2019-04-29] MEDS: CLOPIDOGREL BISULFATE 75 MG TABLET (FP) PO SCH (09:49)
[2019-04-29] MEDS: FINASTERIDE 5 MG TABLET (FP) PO SCH (09:49)
[2019-04-29] MEDS: CLOTRIMAZOLE 1% CREAM 15 GM TUBE TP SCH ×2 (09:49→21:11)
[2019-04-29 09:52] LABS: EOS % 2.3 % (0-4.5); HEMATOCRIT 30.3 % (35.4-49); HEMOGLOBIN 9.6 GM/dL (11.7-16.9); LYMPH % 14.6 % (8-40); MCH 24.3 pg (25.7-33.7); MCHC 31.6 g/dl (32.0-35.9); MEAN CELL VOLUME 77.1 fl (80-96); MEAN PLT VOLUME 9.8 fl (7.5-11.1); MONO % 8.5 % (3.8-10.2); NEUT % 73.6 % (42.8-82.8); PLATELET COUNT 207 K/MM3 (134-434); RBC 3.94 M/mm3 (4.00-5.60); RDW 18.2 % (11.9-15.9); WHITE BLOOD COUNT 6.6 K/mm3 (4.0-10.0)
[2019-04-29] MEDS: HEPARIN - 25,000 UNIT in SODIUM CHLORIDE 495 ML IV SCH (09:53)
[2019-04-29] MEDS: ENOXAPARIN NA (PORCINE) 60 MG/0.6 ML DISP.SYRIN SQ SCH ×2 (10:05→21:11)
[2019-04-29 10:37] LABS: ANISOCYTOSIS 2+; MACROCYTOSIS 0; PLATELET ESTIMATE NORMAL; TEAR DROP CELLS 1+
--- NOTE | 2019-04-29 12:14 | PN ---
Progress Note (short form) - Note Progress Note: PULMONARY Denies shortness of breath or chest pain. Heme input appreciated. Vital Signs Period Temp Pulse Resp BP Sys/Martin Pulse Ox Last 24 Hr 97.7 F-98.2 F 58-86 16-20 119-162/52-60 99-100 Gen: NAD at rest Heart: RRR Lung: decreased breath sounds at the bases Abd: soft, nontender Ext: no edema CBC, BMP 04/29/19 09:35 04/28/19 07:03 Active Medications Aspirin (Ecotrin -) 81 mg PO DAILY [facility] Last Admin: 04/29/19 09:48 Dose: 81 mg Atorvastatin Calcium (Lipitor -) 20 mg PO HS [facility] Last Admin: 04/28/19 22:00 Dose: 20 mg Clopidogrel Bisulfate (Plavix -) 75 mg PO DAILY [facility] Last Admin: 04/29/19 09:49 Dose: 75 mg Clotrimazole (Lotrimin 1% Cream -) 1 applic TP BID [facility] Last Admin: 04/29/19 09:49 Dose: 1 applic Enoxaparin Sodium (Lovenox -) 60 mg SQ Q12H [facility] Last Admin: 04/29/19 10:05 Dose: 60 mg Finasteride (Proscar -) 5 mg PO DAILY [facility] Last Admin: 04/29/19 09:49 Dose: 5 mg Tamsulosin HCl (Flomax -) 0.4 mg PO 0830 [facility] Last Admin: 04/29/19 09:48 Dose: 0.4 mg Valsartan (Diovan -) 40 mg PO DAILY [facility] Last Admin: 04/29/19 09:48 Dose: 40 mg A/P Acute Subsegmental Pulmonary Emboli Recent TAVR LV Diastolic Dysfunction h/o Metastatic Lung Ca Hyperlipidemia HTN BPH - continue anticoagulation - inhaled bronchodilators as needed - O2 to keep SpO2>90% Problem List - Problems (1) Pulmonary embolism Code(s): I26.99 - OTHER PULMONARY EMBOLISM WITHOUT ACUTE COR PULMONALE
--- NOTE | 2019-04-29 12:14 | PN ---
Physical Exam: SUBJECTIVE: Patient seen and examined at bedside. patient c/o slight abdominal discomfort. No other complaints. Patient endorses voiding spontaneously OBJECTIVE: Vital Signs Period Temp Pulse Resp BP Sys/Martin Pulse Ox Last 24 Hr 97.7 F-98.2 F 58-86 16-20 119-162/52-60 99-100 GENERAL: The patient is awake, alert, and fully oriented, in no acute distress. NECK: Trachea midline, full range of motion, supple. LUNGS: Breath sounds equal, clear to auscultation bilaterally, no wheezes, no crackles, no accessory muscle use. HEART: Regular rate and rhythm, S1, S2 without murmur, rub or gallop. ABDOMEN: Soft. mildly distended. Mild tenderness to palpation in the lower quadrants and in the suprapubic region EXTREMITIES: 2+ pulses, warm, well-perfused, no edema. NEUROLOGICAL: Cranial nerves II through XII grossly intact. Normal speech, gait not observed. Laboratory Results - last 24 hr 04/28/19 04/29/19 04/29/19 11:30 06:07 09:35 WBC 6.6 RBC 3.94 L Hgb 9.6 L Hct 30.3 L MCV 77.1 L MCH 24.3 L MCHC 31.6 L RDW 18.2 H Plt Count 207 MPV 9.8 D Absolute Neuts (auto) 4.9 Neutrophils % 73.6 Neutrophils % (Manual) 81.0 Band Neutrophils % 0.0 Lymphocytes % 14.6 Lymphocytes % (Manual) 13.0 Monocytes % 8.5 Monocytes % (Manual) 4 Eosinophils % 2.3 Eosinophils % (Manual) 0.0 Basophils % 1.0 Basophils % (Manual) 0.0 Myelocytes % (Man) 1 Promyelocytes % (Man) 0 Blast Cells % (Manual) 0 Nucleated RBC % 0 Metamyelocytes 1 Hypochromia 0 Platelet Estimate Normal Polychromasia 1+ Poikilocytosis 2+ Anisocytosis 2+ Microcytosis 1+ Macrocytosis 0 Tear Drop Cells 1+ Acanthocytes (Spur) 1+ Schistocytes 2+ PTT (Actin FS) 79.9 H 49.0 H Active Medications Generic Name Dose Route Start Last Admin Trade Name Freq PRN Reason Stop Dose Admin Aspirin 81 mg 04/29/19 10:00 04/29/19 09:48 Ecotrin - PO 81 mg DAILY [facility] Administration Atorvastatin Calcium 20 mg 04/28/19 22:00 04/28/19 22:00 Lipitor - PO 20 mg HS [facility] Administration Clopidogrel Bisulfate 75 mg 04/28/19 11:30 04/29/19 09:49 Plavix - PO 75 mg DAILY [facility] Administration Clotrimazole 1 applic 04/28/19 22:00 04/29/19 09:49 Lotrimin 1% Cream - TP 1 applic BID [facility] Administration Enoxaparin Sodium 60 mg 04/29/19 10:00 04/29/19 10:05 Lovenox - SQ 60 mg Q12H [facility] Administration Finasteride 5 mg 04/28/19 11:30 04/29/19 09:49 Proscar - PO 5 mg DAILY [facility] Administration Tamsulosin HCl 0.4 mg 04/28/19 11:30 04/29/19 09:48 Flomax - PO 0.4 mg 0830 [facility] Administration Valsartan 40 mg 04/29/19 10:00 04/29/19 09:48 Diovan - PO 40 mg DAILY [facility] Administration ASSESSMENT/PLAN: 88M w/ pmh of hearing deficiency, GERD, HTN, chronic tobacco usage, Lung Ca(dx 2016, s/p RT and Keytruda w/ chemoradiation course complicated by pneumonitis-- resolved and colitis--resolved), Aortic Stenosis s/p TAVR([place], ) referred to ED by Dr Fisher d/t CTA Chest showing RLL segmental branch PE. #Pulmonary Embolism -heparin GTT switched to 1 mg/kg BID Lovenox at the recommendation of hematology. Plan to continue lovenox x 7 days and transition to eliquis -patient asymptomatic at this time. 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 - New Patient This patient is new to me today: Yes Date on this admission: 04/29/19 - Critical Care Critical Care patient: No ATTENDING PHYSICIAN STATEMENT I saw and evaluated the patient. I reviewed the resident's note and discussed the case with the resident. I agree with the resident's findings and plan as documented. SUBJECTIVE: OBJECTIVE: ASSESSMENT AND PLAN:
--- NOTE | 2019-04-29 14:30 | PN ---
Teaching Attending Note Name of Resident: Zaire Michaels ATTENDING PHYSICIAN STATEMENT I saw and evaluated the patient. I reviewed the resident's note and discussed the case with the resident. I agree with the resident's findings and plan as documented. SUBJECTIVE: Patient is feeling better but retaining around 750ml of urine after urinating in the bathroom. Vital Signs Temperature 97.9 F 04/29/19 09:46 Pulse Rate 86 04/29/19 09:46 Respiratory Rate 20 04/29/19 09:46 Blood Pressure 162/56 L 04/29/19 09:46 O2 Sat by Pulse Oximetry (%) 100 04/29/19 09:00 GENERAL: The patient is awake, alert, and fully oriented, in no acute distress. HEAD: Normal with no signs of trauma. EYES: PERRL, extraocular movements intact, sclera anicteric, conjunctiva clear. ENT: Ears normal, oropharynx clear without exudates, moist mucous membranes. NECK: Trachea midline, full range of motion, supple. LUNGS: Breath sounds equal, clear to auscultation bilaterally, no wheezes, no crackles, no accessory muscle use. HEART: rate controlled now , S1, S2 positive, no rub or gallop. ABDOMEN: Soft, Nt,ND, normoactive bowel sounds, no guarding, no rebound, no hepatosplenomegaly, no masses. EXTREMITIES: 2+ pulses, warm, well-perfused, no edema. NEUROLOGICAL: Cranial nerves II through XII grossly intact. Normal speech, gait not observed. PSYCH: Normal mood, normal affect. SKIN: Warm, dry, normal turgor, no rashes or lesions noted CBCD WBC 6.6 K/mm3 (4.0-10.0) 04/29/19 09:35 RBC 3.94 M/mm3 (4.00-5.60) L 04/29/19 09:35 Hgb 9.6 GM/dL (11.7-16.9) L 04/29/19 09:35 Hct 30.3 % (35.4-49) L 04/29/19 09:35 MCV 77.1 fl (80-96) L 04/29/19 09:35 MCHC 31.6 g/dl (32.0-35.9) L 04/29/19 09:35 RDW 18.2 % (11.9-15.9) H 04/29/19 09:35 Plt Count 207 K/MM3 (134-434) 04/29/19 09:35 MPV 9.8 fl (7.5-11.1) D 04/29/19 09:35 CMP Sodium 142 mmol/L (136-145) 04/28/19 07:03 Potassium 4.0 mmol/L (3.5-5.1) 04/28/19 07:03 Chloride 116 mmol/L (98-107) H 04/28/19 07:03 Carbon Dioxide 18 mmol/L (21-32) L 04/28/19 07:03 Anion Gap 9 MMOL/L (8-16) 04/28/19 07:03 BUN 28.0 mg/dL (7-18) H 04/28/19 07:03 Creatinine 1.1 mg/dL (0.55-1.3) 04/28/19 07:03 Random Glucose 83 mg/dL (74-106) 04/28/19 07:03 Calcium 7.3 mg/dL (8.5-10.1) L 04/28/19 07:03 CARDIAC ENZYMES Creatine Kinase 67 U/L (26-308) 04/27/19 18:51 Troponin I 0.03 ng/ml (0.00-0.05) 04/28/19 07:03 Home Medications Medication Instructions Recorded Aspirin [Aspir 81] 81 mg PO DAILY 07/26/12 Lutein 10 mg PO DAILY tablet 07/26/12 Atorvastatin Calcium 20 mg PO DAILY tablet 11/25/16 Biotin 5,000 mcg PO ASDIR capsule 11/25/16 Clopidogrel Bisulfate [Plavix] 75 mg PO ONCE 04/27/19 Famotidine [Pepcid] 40 mg PO BID 04/27/19 Olmesartan Medoxomil [Benicar] 5 mg PO ONCE 04/27/19 Tizanidine HCl 2 mg PO HS 04/27/19 Clotrimazole 15 gm TP BID 04/28/19 Current Medications Generic Name Dose Route Start Last Admin Trade Name Freq PRN Reason Stop Dose Admin Aspirin 81 mg 04/29/19 10:00 04/29/19 09:48 Ecotrin - PO 81 mg DAILY [facility] Administration Atorvastatin Calcium 20 mg 04/28/19 22:00 04/28/19 22:00 Lipitor - PO 20 mg HS [facility] Administration Clopidogrel Bisulfate 75 mg 04/28/19 11:30 04/29/19 09:49 Plavix - PO 75 mg DAILY [facility] Administration Clotrimazole 1 applic 04/28/19 22:00 04/29/19 09:49 Lotrimin 1% Cream - TP 1 applic BID [facility] Administration Docusate Sodium 100 mg 04/29/19 22:00 Colace - PO BID [facility] Enoxaparin Sodium 60 mg 04/29/19 10:00 04/29/19 10:05 Lovenox - SQ 60 mg Q12H [facility] Administration Ferrous Sulfate 325 mg 04/29/19 17:30 Feosol - PO BIDWM [facility] Finasteride 5 mg 04/28/19 11:30 04/29/19 09:49 Proscar - PO 5 mg DAILY [facility] Administration Tamsulosin HCl 0.4 mg 04/29/19 20:00 Flomax - PO 0830,2000 [facility] Valsartan 40 mg 04/29/19 10:00 04/29/19 09:48 Diovan - PO 40 mg DAILY [facility] Administration CTA Chest: RLL segmental branch PE Echo w/ LVEF 50-55%. Assessment and plan: Patient is an 88yo male with pmhx OF GERD, HTN, tobacco dependency , Lung Ca (dx 2015, s/p RT and Keytruda w/ chemoradiation course ), Aortic Stenosis s/p TAVR ( 04/20/19) referred to ED by Dr Fisher d/t . Presented with SOB and was found to have RLL PE. CTA showing RLL segmental PE. 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 # L3 acute-subacute fracture --possibly due to L-spine mets # Hx of urinary obstruction: had retention s/p TAVR 04/13, also dx'd with phymosis there; being treated with local cream lotrimin as per Dr. Montoya's note: patient has an enlarged bladder s/p traumatic jackson attempt by RN at [place]--would consult for jackson insertion will increase flomax to 0.4mcg bid instead of 0.4mcg s/p TAVR: normal valve fxn # Elevated BP now; will monitor , continue his meds, continue hid meds. DVt Px: lovenox
[2019-04-29] MEDS: FERROUS SO4 325 MG TABLET (FP) PO SCH (17:43)
[2019-04-29] MEDS: ATORVASTATIN CA 20 MG TABLET (FP) PO SCH (21:10)
[2019-04-29] MEDS: DOCUSATE SODIUM 100 MG CAPSULE (FP) PO SCH (21:11)
[2019-04-30 06:37] LABS: HEMATOCRIT 31.7 % (35.4-49); HEMOGLOBIN 10.2 GM/dL (11.7-16.9); MCH 24.5 pg (25.7-33.7); MCHC 32.1 g/dl (32.0-35.9); MEAN CELL VOLUME 76.5 fl (80-96); MEAN PLT VOLUME 9.5 fl (7.5-11.1); PLATELET COUNT 208 K/MM3 (134-434); RBC 4.15 M/mm3 (4.00-5.60); RDW 17.5 % (11.9-15.9); WHITE BLOOD COUNT 6.1 K/mm3 (4.0-10.0)
[2019-04-30] MEDS: FERROUS SO4 325 MG TABLET (FP) PO SCH (09:24)
[2019-04-30] MEDS: TAMSULOSIN HCL 0.4 MG CAP PO SCH (09:24)
--- NOTE | 2019-04-30 09:24 | PN ---
Progress Note, Physician Chief Complaint: sob History of Present Illness: no sob in bed. was fatigued and breathless walking short distance in [place] yesterday still with imperfect urine stream flow no cp, palpit - Current Medication List Current Medications: Active Medications Aspirin (Ecotrin -) 81 mg PO DAILY [facility] Last Admin: 04/29/19 09:48 Dose: 81 mg Atorvastatin Calcium (Lipitor -) 20 mg PO HS [facility] Last Admin: 04/29/19 21:10 Dose: 20 mg Clopidogrel Bisulfate (Plavix -) 75 mg PO DAILY [facility] Last Admin: 04/29/19 09:49 Dose: 75 mg Clotrimazole (Lotrimin 1% Cream -) 1 applic TP BID [facility] Last Admin: 04/29/19 21:11 Dose: 1 applic Docusate Sodium (Colace -) 100 mg PO BID [facility] Last Admin: 04/29/19 21:11 Dose: 100 mg Enoxaparin Sodium (Lovenox -) 60 mg SQ Q12H [facility] Last Admin: 04/29/19 21:11 Dose: 60 mg Ferrous Sulfate (Feosol -) 325 mg PO BIDWM [facility] Last Admin: 04/29/19 17:43 Dose: 325 mg Finasteride (Proscar -) 5 mg PO DAILY [facility] Last Admin: 04/29/19 09:49 Dose: 5 mg Tamsulosin HCl (Flomax -) 0.4 mg PO [facility] Last Admin: 04/29/19 21:11 Dose: 0.4 mg Valsartan (Diovan -) 40 mg PO DAILY [facility] Last Admin: 04/29/19 09:48 Dose: 40 mg - Objective Vital Signs: Vital Signs Temperature 98.8 F 04/30/19 08:30 Pulse Rate 65 04/30/19 08:30 Respiratory Rate 20 04/30/19 08:30 Blood Pressure 144/60 04/30/19 08:30 O2 Sat by Pulse Oximetry (%) 100 04/29/19 21:00 Constitutional: Yes: Well Nourished, No Distress, Calm Cardiovascular: Yes: Regular Rate and Rhythm, Bradycardia, S1, S2. No: Gallop, Murmur Respiratory: Yes: Regular, CTA Bilaterally. No: Accessory Muscle Use, Rales Extremities: No: Cold Edema: No Neurological: Yes: Alert, Oriented Psychiatric: No: Agitated Labs: CBC, BMP 04/30/19 05:30 04/28/19 07:03 INR, PTT INR 1.13 (0.83-1.09) H 04/27/19 18:51 Assessment/Plan Echo 04/27/19: nl LVEF. nl RV. trace AI s/p TAVR. no pulm HTN ECG: NSR, normal axis, PVCs. no q's or ST-T tele: NSR, PVCs PE (segmental branch): -no RV enlargement/hypo. BNP 500 (low GFR). trop negative. no hypotension. -normal sats on RA -provoked by lung malignancy and prolonged sedentary status -onc input appreciated: rec lovenox or eliquis as reasonable long-term AC options. currently receiving wt based lovenox, pt and uneasy about administering this at home. rec teaching of and if she is not comfortable, then can change to eliquis per heme rec anemia: -post-TAVR hgb 10's, stable 9s-10s currently -iron indices c/w deficiency per heme -close monitoring of counts on AC -will pare back anti-PLT regimen once d/w TAVR team, as below h/o urinary obstruction: -had retention s/p TAVR 04/13, also dx'd with phymosis there--being treated with local cream -currently c/o urine stream incompletely emptying, back on home med regimen -to be seen by DEIDRA today s/p TAVR: -normal valve fxn -will d/w structural valve team, likely will stop aspirin and use plavix along with AC agent for 6 mo duration HTN: -on olmesartan 5 qd at home -bp stable here, same meds CKD: -creat ranges 1.2-1.4 -improved today s/p IVF--cont fluids x 24 hrs from contrast--until 5 pm 04/28 lung cancer: -stable, minimal dz s/p immunotherapy -per onc ([facility]) ? 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
[2019-04-30] MEDS: DOCUSATE SODIUM 100 MG CAPSULE (FP) PO SCH (09:25)
[2019-04-30] MEDS: VALSARTAN 40 MG TABLET (FP) PO SCH (09:26)
[2019-04-30] MEDS: ENOXAPARIN NA (PORCINE) 60 MG/0.6 ML DISP.SYRIN SQ SCH (09:27)
[2019-04-30] MEDS: CLOTRIMAZOLE 1% CREAM 15 GM TUBE TP SCH (09:27)
[2019-04-30] MEDS: ASPIRIN COATED 81 MG TABLET.EC PO SCH (09:27)
[2019-04-30] MEDS: CLOPIDOGREL BISULFATE 75 MG TABLET (FP) PO SCH (09:27)
[2019-04-30] MEDS: FINASTERIDE 5 MG TABLET (FP) PO SCH (09:28)
--- NOTE | 2019-04-30 10:14 | PN ---
Progress Note, Physician History of Present Illness: PULMONARY ALERT,FEELING BETTER,-SOB AT REST,+ BARGER,-CP - Current Medication List Current Medications: Active Medications Aspirin (Ecotrin -) 81 mg PO DAILY [facility] Last Admin: 04/30/19 09:27 Dose: 81 mg Atorvastatin Calcium (Lipitor -) 20 mg PO HS [facility] Last Admin: 04/29/19 21:10 Dose: 20 mg Clopidogrel Bisulfate (Plavix -) 75 mg PO DAILY [facility] Last Admin: 04/30/19 09:27 Dose: 75 mg Clotrimazole (Lotrimin 1% Cream -) 1 applic TP BID [facility] Last Admin: 04/30/19 09:27 Dose: 1 applic Docusate Sodium (Colace -) 100 mg PO BID [facility] Last Admin: 04/30/19 09:25 Dose: 100 mg Enoxaparin Sodium (Lovenox -) 60 mg SQ Q12H [facility] Last Admin: 04/30/19 09:27 Dose: 60 mg Ferrous Sulfate (Feosol -) 325 mg PO BIDWM [facility] Last Admin: 04/30/19 09:24 Dose: 325 mg Finasteride (Proscar -) 5 mg PO DAILY [facility] Last Admin: 04/30/19 09:28 Dose: 5 mg Tamsulosin HCl (Flomax -) 0.4 mg PO [facility] Last Admin: 04/30/19 09:24 Dose: 0.4 mg Valsartan (Diovan -) 40 mg PO DAILY [facility] Last Admin: 04/30/19 09:26 Dose: 40 mg - Objective Vital Signs: Vital Signs Temperature 98.8 F 04/30/19 08:30 Pulse Rate 65 04/30/19 08:30 Respiratory Rate 20 04/30/19 08:30 Blood Pressure 144/60 04/30/19 08:30 O2 Sat by Pulse Oximetry (%) 100 04/29/19 21:00 Constitutional: Yes: Calm, Thin Eyes: Yes: WNL HENT: Yes: WNL Neck: Yes: WNL Cardiovascular: Yes: Regular Rate and Rhythm, S1, S2 Respiratory: Yes: Diminished Gastrointestinal: Yes: Normal Bowel Sounds, Soft Extremities: Yes: WNL Edema: No Labs: CBC, BMP 04/30/19 05:30 Assessment/Plan Problem List - Problems (1) Pulmonary embolism Code(s): I26.99 - OTHER PULMONARY EMBOLISM WITHOUT ACUTE COR PULMONALE Assessment/Plan Acute Subsegmental Pulmonary Emboli Recent TAVR LV Diastolic Dysfunction h/o Metastatic Lung Ca Hyperlipidemia HTN BPH - continue anticoagulation - LE dopplers - inhaled bronchodilators as needed - O2 to keep SpO2>90% DR DINH
--- NOTE | 2019-04-30 10:42 | CON.GU ---
Consult Consult Specialty:: urology Referred by:: Lindsay Reason for Consultation:: urinary retention - History of Present Illness Chief Complaint: urinary retention History of Present Illness: Patient is an 88 year old male with history of lung CA, s/p TAVR who has a history of bph and urinary retention. The patient has had a previous episode of retention. Patient is currently on flomax and finasteride. He describes significant urinary frequency. Patient also had a bladder sonogram done yesterday which showed a bladder volume greater than 700cc. - History Source History Provided By: Patient, Family Member, Medical Record, Caregiver Limitations to Obtaining History: No Limitations - Past Medical History Cardio/Vascular: Yes: Aortic Stenosis, HTN - Alcohol/Substance Use Hx Alcohol Use: No - Smoking History Smoking history: Current every day smoker Have you smoked in the past 12 months: Yes Home Medications - Allergies Allergies/Adverse Reactions: Allergies Allergy/AdvReac Type Severity Reaction Status Date / Time No Known Allergies Allergy Unverified 04/27/19 18:11 - Home Medications Home Medications: Ambulatory Orders Aspirin [Aspir 81] 81 mg PO DAILY 07/26/12 Lutein 10 mg PO DAILY tablet 07/26/12 Atorvastatin Calcium 20 mg PO DAILY tablet 11/25/16 Biotin 5,000 mcg PO ASDIR capsule 11/25/16 Clopidogrel Bisulfate [Plavix] 75 mg PO ONCE 04/27/19 Famotidine [Pepcid] 40 mg PO BID 04/27/19 Olmesartan Medoxomil [Benicar] 5 mg PO ONCE 04/27/19 Tizanidine HCl 2 mg PO HS 04/27/19 Clotrimazole 15 gm TP BID 04/28/19 Physical Exam- Vital Signs: Vital Signs Temperature 98.8 F 04/30/19 08:30 Pulse Rate 65 04/30/19 08:30 Respiratory Rate 20 04/30/19 08:30 Blood Pressure 144/60 04/30/19 08:30 O2 Sat by Pulse Oximetry (%) 100 04/29/19 21:00 Constitutional: Yes: No Distress, Calm Eyes: Yes: WNL, Conjunctiva Clear, EOM Intact HENT: Yes: WNL, Atraumatic, Normocephalic Neck: Yes: WNL, Supple, Trachea Midline Cardiovascular: Yes: Regular Rate and Rhythm Respiratory: Yes: Regular Gastrointestinal: Yes: WNL Renal/: Yes: WNL Kidneys: Yes: WNL Pelvis: Yes: Bladder Palpable Testicles: Yes: WNL Scrotum: Yes: WNL Penis: Yes: Phimosis (mild erythema of glans and preputial skin) Prostate Exam: Yes: Swollen Labs: CBC, BMP 04/30/19 05:30 04/28/19 07:03 Assessment/Plan procedure note jackson catheter placed and less than 150 cc urine drained; jackson removed imp bph history of urinary retention plan supportive care cleared urologically for d/c home continue flomax and finasteride levaquin 500mg po x one for prophylaxis after jackson placement
[2019-04-30] MEDS ORDERED: CEFTRIAXONE 1 GM in DEXTROSE 5%-WATER - 50 ML IVPB SCH (12:30)
[2019-04-30 12:38] VITALS: BMI 18.4
[2019-04-30] MEDS ORDERED: DEXTROSE 5%-WATER - 50 ML IVPB ONE (13:00)
[2019-04-30] MEDS ORDERED: cefTRIAXone SODIUM 1 GM VIAL ONE (13:00)
--- NOTE | 2019-04-30 13:50 | PN ---
Physical Exam: SUBJECTIVE: Patient seen and examined OBJECTIVE: Vital Signs Period Temp Pulse Resp BP Sys/Martin Pulse Ox Last 24 Hr 98.1 F-98.8 F 63-74 20-20 124-147/48-64 99-100 GENERAL: The patient is awake, alert, and fully oriented, in no acute distress. NECK: supple. LUNGS: coarse breath sounds left lower base HEART: Regular rate and rhythm, S1, S2 without murmur, rub or gallop. ABDOMEN: Soft. ND, NT , normal BS EXTREMITIES: 2+ pulses, warm, well-perfused, no edema. spme upper ext echymosis NEUROLOGICAL: Cranial nerves II through XII grossly intact. Normal speech, gait not observed. Laboratory Results - last 24 hr 04/30/19 05:30 WBC 6.1 RBC 4.15 Hgb 10.2 L Hct 31.7 L MCV 76.5 L MCH 24.5 L MCHC 32.1 RDW 17.5 H Plt Count 208 MPV 9.5 Active Medications Generic Name Dose Route Start Last Admin Trade Name Andreaq PRN Reason Stop Dose Admin Aspirin 81 mg 04/29/19 10:00 04/30/19 09:27 Ecotrin - PO 81 mg DAILY [facility] Administration Atorvastatin Calcium 20 mg 04/28/19 22:00 04/29/19 21:10 Lipitor - PO 20 mg HS [facility] Administration Clopidogrel Bisulfate 75 mg 04/28/19 11:30 04/30/19 09:27 Plavix - PO 75 mg DAILY [facility] Administration Clotrimazole 1 applic 04/28/19 22:00 04/30/19 09:27 Lotrimin 1% Cream - TP 1 applic BID [facility] Administration Docusate Sodium 100 mg 04/29/19 22:00 04/30/19 09:25 Colace - PO 100 mg BID [facility] Administration Enoxaparin Sodium 60 mg 04/29/19 10:00 04/30/19 09:27 Lovenox - SQ 60 mg Q12H [facility] Administration Ferrous Sulfate 325 mg 04/29/19 17:30 04/30/19 09:24 Feosol - PO 325 mg BIDWM [facility] Administration Finasteride 5 mg 04/28/19 11:30 04/30/19 09:28 Proscar - PO 5 mg DAILY [facility] Administration Ceftriaxone Sodium 1 gm/ 50 mls @ 200 mls/hr 04/30/19 12:30 04/30/19 13:36 Dextrose IVPB 200 mls/hr DAILY [facility] Administration Protocol Tamsulosin HCl 0.4 mg 04/29/19 20:00 04/30/19 09:24 Flomax - PO 0.4 mg 0830,1999 [facility] Administration Valsartan 40 mg 04/29/19 10:00 04/30/19 09:26 Diovan - PO 40 mg DAILY [facility] Administration CBC, BMP 04/30/19 05:30 04/28/19 07:03 ASSESSMENT/PLAN: 88M with HTN, HLD, BPH, 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 Stated on UFH. Acute Subsegmental Pulmonary Emboli cont lovenox 60 mg Q 12 hours , cont plavix , hold ASAper cardiology , pulse oxy , maintain o2 sat > 90 % Recent TAVR LV Diastolic Dysfunction h/o Metastatic Lung Ca Hyperlipidemia HTN BPH Visit type - Emergency Visit Emergency Visit: Yes ED Registration Date: 04/27/19 Care time: The patient presented to the Emergency Department on the above date and was hospitalized for further evaluation of their emergent condition. - New Patient This patient is new to me today: Yes Date on this admission: 04/30/19 - Critical Care Critical Care patient: No - Discharge Referral Referred to [facility] Med [facility].C[facility] No ATTENDING PHYSICIAN STATEMENT I saw and evaluated the patient. I reviewed the resident's note and discussed the case with the resident. I agree with the resident's findings and plan as documented. SUBJECTIVE: OBJECTIVE: ASSESSMENT AND PLAN:
[2019-04-30 14:38] VITALS: BP 127/46; PULSE 78; TEMP 98.1
--- NOTE | 2019-04-30 15:11 | PN ---
Teaching Attending Note Name of Resident: Marino Elder ATTENDING PHYSICIAN STATEMENT I saw and evaluated the patient. I reviewed the resident's note and discussed the case with the resident. I agree with the resident's findings and plan as documented. SUBJECTIVE: Patient is a comfortable ,denies any shortness of breath. Family at bedside. Vital Signs Temperature 98.1 F 04/30/19 14:00 Pulse Rate 78 04/30/19 14:00 Respiratory Rate 20 04/30/19 08:30 Blood Pressure 127/46 L 04/30/19 14:00 O2 Sat by Pulse Oximetry (%) 99 04/30/19 09:00 GENERAL: The patient is awake, alert, and fully oriented, in no acute distress. HEAD: Normal with no signs of trauma. EYES: PERRL, extraocular movements intact, sclera anicteric, conjunctiva clear. ENT: Ears normal, oropharynx clear without exudates, moist mucous membranes. NECK: Trachea midline, full range of motion, supple. LUNGS: Breath sounds equal, clear to auscultation bilaterally, no wheezes, no crackles, no accessory muscle use. HEART: rate controlled now , S1, S2 positive, no rub or gallop. ABDOMEN: Soft, Nt, ND, normoactive bowel sounds, no guarding, no rebound, no hepatosplenomegaly, no masses. EXTREMITIES: 2+ pulses, warm, well-perfused, no edema. NEUROLOGICAL: Cranial nerves II through XII grossly intact. Normal speech, gait not observed. PSYCH: Normal mood, normal affect. SKIN: Warm, dry, normal turgor, no rashes or lesions noted : non distended CBCD WBC 6.1 K/mm3 (4.0-10.0) 04/30/19 05:30 RBC 4.15 M/mm3 (4.00-5.60) 04/30/19 05:30 Hgb 10.2 GM/dL (11.7-16.9) L 04/30/19 05:30 Hct 31.7 % (35.4-49) L 04/30/19 05:30 MCV 76.5 fl (80-96) L 04/30/19 05:30 MCHC 32.1 g/dl (32.0-35.9) 04/30/19 05:30 RDW 17.5 % (11.9-15.9) H 04/30/19 05:30 Plt Count 208 K/MM3 (134-434) 04/30/19 05:30 MPV 9.5 fl (7.5-11.1) 04/30/19 05:30 CMP Sodium 142 mmol/L (136-145) 04/28/19 07:03 Potassium 4.0 mmol/L (3.5-5.1) 04/28/19 07:03 Chloride 116 mmol/L (98-107) H 04/28/19 07:03 Carbon Dioxide 18 mmol/L (21-32) L 04/28/19 07:03 Anion Gap 9 MMOL/L (8-16) 04/28/19 07:03 BUN 28.0 mg/dL (7-18) H 04/28/19 07:03 Creatinine 1.1 mg/dL (0.55-1.3) 04/28/19 07:03 Random Glucose 83 mg/dL (74-106) 04/28/19 07:03 Calcium 7.3 mg/dL (8.5-10.1) L 04/28/19 07:03 CARDIAC ENZYMES Creatine Kinase 67 U/L (26-308) 04/27/19 18:51 Troponin I 0.03 ng/ml (0.00-0.05) 04/28/19 07:03 Current Medications Generic Name Dose Route Start Last Admin Trade Name Caryn PRN Reason Stop Dose Admin Aspirin 81 mg 04/29/19 10:00 04/30/19 09:27 Ecotrin - PO 81 mg DAILY DAVONTE Administration Atorvastatin Calcium 20 mg 04/28/19 22:00 04/29/19 21:10 Lipitor - PO 20 mg HS DAVONTE Administration Clopidogrel Bisulfate 75 mg 04/28/19 11:30 04/30/19 09:27 Plavix - PO 75 mg DAILY DAVONTE Administration Clotrimazole 1 applic 04/28/19 22:00 04/30/19 09:27 Lotrimin 1% Cream - TP 1 applic BID DAVONTE Administration Docusate Sodium 100 mg 04/29/19 22:00 04/30/19 09:25 Colace - PO 100 mg BID DAVONTE Administration Enoxaparin Sodium 60 mg 04/29/19 10:00 04/30/19 09:27 Lovenox - SQ 60 mg Q12H DAVONTE Administration Ferrous Sulfate 325 mg 04/29/19 17:30 04/30/19 09:24 Feosol - PO 325 mg BIDWM DAVONTE Administration Finasteride 5 mg 04/28/19 11:30 04/30/19 09:28 Proscar - PO 5 mg DAILY DAVONTE Administration Ceftriaxone Sodium 1 gm/ 50 mls @ 200 mls/hr 04/30/19 12:30 04/30/19 13:36 Dextrose IVPB 200 mls/hr DAILY DAVONTE Administration Protocol Tamsulosin HCl 0.4 mg 04/29/19 20:00 04/30/19 09:24 Flomax - PO 0.4 mg [facility] Administration Valsartan 40 mg 04/29/19 10:00 04/30/19 09:26 Diovan - PO 40 mg DAILY DAVONTE Administration Home Medications Medication Instructions Recorded Lutein 10 mg PO DAILY tablet 07/26/12 Atorvastatin Calcium 20 mg PO DAILY tablet 11/25/16 Biotin 5,000 mcg PO ASDIR capsule 11/25/16 Famotidine [Pepcid] 40 mg PO BID 04/27/19 Tizanidine HCl 2 mg PO HS 04/27/19 Clotrimazole 15 gm TP BID 04/28/19 Atorvastatin Ca [Lipitor] 20 mg PO HS tablet 04/30/19 Clopidogrel Bisulfate [Plavix] 75 mg PO DAILY #30 tablet 04/30/19 Clotrimazole [Lotrimin -] 1 applic TP BID tube 04/30/19 Docusate Sodium [Colace -] 100 mg PO BID capsule 04/30/19 Enoxaparin [Lovenox -] 60 mg SQ Q12H #60 disp.syrin 04/30/19 Ferrous Sulfate [Feosol] 325 mg PO BIDWM ud 04/30/19 Lactobacillus Acidophilus [Bacid -] 1 each PO HS #30 capsule 04/30/19 Olmesartan Medoxomil [Benicar] 5 mg PO DAILY #30 tablet 04/30/19 Tamsulosin HCl [Flomax -] 0.4 mg PO #60 cap 04/30/19 levoFLOXacin [Levaquin -] 500 mg PO DAILY #5 tablet 04/30/19 CTA Chest: RLL segmental branch PE Echo w/ LVEF 50-55%. Assessment and plan: Patient is an 88yo male with pmhx OF GERD, HTN, tobacco dependency , Lung Ca (dx 2016, s/p RT and Keytruda w/ chemoradiation course ), Aortic Stenosis s/p TAVR ( 04/20/19) referred to ED by Dr Fisher d/t . Presented with SOB and was found to have RLL PE. CTA showing RLL segmental PE. #Pulmonary Embolism: RLL lateral segmental branch embolus on lovenox sq s/p heparin gtt continue #Aortic Stenosis --s/p TAVR, echo w/o signs of significant AR, , cardio is on the case. as per cardio, no aspirin , just to continue lovenox and Plavix #Lung Ca w/ metastasis to L-spine ;continue to wear the brace . # L3 acute-subacute fracture --possibly due to L-spine mets # Hx of urinary obstruction: had retention s/p TAVR 04/13, also dx'd with phymosis there, continue lotrimin cream, as per urology who has seen the patient , 150cc in the bladder, no need for jackson, since doing better on flomax with increased dose flomax to 0.4mcg bid instead of 0.4mcg s/p TAVR: normal valve fxn # Elevated BP stable, continue home meds . DVt Px: lovenox dc patient home.
--- NOTE | 2019-04-30 15:11 | DS ---
Physical Exam: SUBJECTIVE: Patient seen and examined OBJECTIVE: Vital Signs Period Temp Pulse Resp BP Sys/Martin Pulse Ox Last 24 Hr 98.1 F-98.8 F 63-78 20-20 125-147/46-64 99-100 PHYSICAL EXAM GENERAL: Awake, alert, and fully oriented. NAD HEAD: NC/AT. No temporal wasting EYES: Pupils equal, round and reactive to light, extraocular movements intact, sclera anicteric, conjunctiva clear. No lid lag. EARS, NOSE, THROAT: Poor dentition. Ears normal, nares patent. Moist mucous membranes. NECK: Normal range of motion, supple without lymphadenopathy, JVD, or masses. LUNGS: Breath sounds equal, clear to auscultation bilaterally. No wheezes, and no crackles. No accessory muscle use. Not on supplemental O2 HEART: Regular rate and rhythm, normal S1 and S2 without murmur, rub or gallop. ABDOMEN: Soft, nontender, not distended, no guarding, no rebound, no masses. MUSCULOSKELETAL: Normal range of motion at all joints. No bony deformities or tenderness. No CVA tenderness. UPPER EXTREMITIES: 2+ pulses, warm, well-perfused. No cyanosis. No peripheral edema. LOWER EXTREMITIES: 2+ pulses, warm, well-perfused. No calf tenderness. No peripheral edema. Right groin with steristrip bandages from femoral access. Femoral pulses 2+ NEUROLOGICAL: Cranial nerves II-XII intact. Normal speech. Gait not observed SKIN: Warm, dry, normal turgor, no rashes or lesions noted, normal capillary refill. 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 Started on heparin gtt then changed to lovenox 60mg BID. Had recent TAVR, cardio(Lindsay) stopped ASA. Had urinary retention so Flomax increased from QD to BID. Urology evaluated the pt and placed a Kee. No urinary retention so Kee was immediately removed. UCX grew Ecoli, given levoquin x5d. Stable for discharge Minutes to complete discharge: 20 Discharge Summary Problems reviewed: Yes Reason For Visit: PULMONARY EMBOLISM Current Active Problems Pulmonary embolism (Acute) Condition: Stable - Instructions Diet, Activity, Other Instructions: You were evaluated in the hospital due to radiographic imaging that showed that you have a clot in your Right lung. We started intravenous blood thinner to treat your condition. The intravenous medication was changed to an injectable medication. You had urinary retention so your home Flomax regimen was changed. The Urologist evaluated you and determined that your urinary retention had resolved. Lab work showed that you have a Urinary Tract Infection. You were given one day of intravenous antibiotics then sent home with oral antibiotics. MEDICATIONS - NEW medications: -- Enoxaparin[LOVENOX] 60mg subcutaneous injections 2x per day follow up with your primary and in a week period -- Levofloxacin[LEVAQUIN] 500mg, taken by mouth, once a day for 5 days, take it away from your other medications. -- Lactobacillus Acidophilus 1 tablet, daily - CHANGE in medications: -- Tamsulosin HCl[FLOMAX] has been increased to 0.4mg, twice a day -- Aspirin 81mg. Please STOP taking Aspirin as per cardiology department --STOP taking Megace Please follow-up with the Physicians below: - Primary Care Physician: to discuss your recent hospitalization and follow up visit - Continuous Miner Operator Helper(Lindsay and Ivon):for follow up - Mushroom Spawn Maker(Piyush): follow up visit for pulmonary embolism - Urologist(Jordon) or your urologist for further care Please seek immediate medical evaluation if you experience: - severe shortness of breath - chest pain or pressure - confusion - severe weakness with inability to perform basic tasks - burning pain with urination Referrals: Koby Pickett MD [Staff Physician] - Willard Ruvalcaba MD [Staff Physician] - Nasim Disla MD [Primary Care Provider] - Puneet Montoya MD [Staff Physician] - Giovana Xie MD [Staff Physician] - Disposition: HOME - Home Medications Comprehensive Discharge Medication List: Ambulatory Orders Lutein 10 mg PO DAILY tablet 07/26/12 Atorvastatin Calcium 20 mg PO DAILY tablet 11/25/16 Biotin 5,000 mcg PO ASDIR capsule 11/25/16 Famotidine [Pepcid] 40 mg PO BID 04/27/19 Tizanidine HCl 2 mg PO HS 04/27/19 Clotrimazole 15 gm TP BID 04/28/19 Atorvastatin Ca [Lipitor] 20 mg PO HS tablet 04/30/19 Clopidogrel Bisulfate [Plavix] 75 mg PO DAILY #30 tablet 04/30/19 Clotrimazole [Lotrimin -] 1 applic TP BID tube 04/30/19 Docusate Sodium [Colace -] 100 mg PO BID capsule 04/30/19 Enoxaparin [Lovenox -] 60 mg SQ Q12H #60 disp.syrin 04/30/19 Ferrous Sulfate [Feosol] 325 mg PO BIDWM ud 04/30/19 Lactobacillus Acidophilus [Bacid -] 1 each PO HS #30 capsule 04/30/19 Olmesartan Medoxomil [Benicar] 5 mg PO DAILY #30 tablet 04/30/19 Tamsulosin HCl [Flomax -] 0.4 mg PO #60 cap 04/30/19 levoFLOXacin [Levaquin -] 500 mg PO DAILY #5 tablet 04/30/19 This patient is new to me today: No Emergency Visit: No Critical Care patient: No - Discharge Referral Referred to [facility] No ATTENDING PHYSICIAN STATEMENT I saw and evaluated the patient. I reviewed the resident's note and discussed the case with the resident. I agree with the resident's findings and plan as documented. SUBJECTIVE: OBJECTIVE: ASSESSMENT AND PLAN:
== END 2019-04-30 16:21 | disposition home or self-care (01) | DRG 180 ==
LOC: JER 18:06 → JERBED 19:03 → J4W 21:48
PROVIDERS: ADMIT Internal Medicine; ATTEND Internal Medicine
DX: C34.90 Malignant neoplasm of unspecified part of unspecified bronchus or lung (principal); I26.99 Other pulmonary embolism without acute cor pulmonale; M84.48XA Pathological fracture, other site, initial encounter for fracture; N39.0 Urinary tract infection, site not specified; C79.51 Secondary malignant neoplasm of bone; R33.9 Retention of urine, unspecified; E78.5 Hyperlipidemia, unspecified; N40.0 Benign prostatic hyperplasia without lower urinary tract symptoms; F17.210 Nicotine dependence, cigarettes, uncomplicated; I12.9 Hypertensive chronic kidney disease with stage 1 through stage 4 chronic kidney disease, or unspecified chronic kidney disease; N18.9 Chronic kidney disease, unspecified; K21.9 Gastro-esophageal reflux disease without esophagitis; B96.20 Unspecified Escherichia coli [E. coli] as the cause of diseases classified elsewhere
CPT/HCPCS: 36415; 71045-TC-FY; 71275-TC; 80048; 81003; 82550; 82728; 83540; 83550; 83735; 83880; 84100; 84443; 84484; 85025; 85027; 85610; 85730; 86850; 86900; 86901; 87086; 87186; 93005; 93010; 93306-TC; 93970-TC; 97116-GP; 97161-GP; 99284-25; C1887; J1644; J7030

== ENCOUNTER 2019-06-11 17:34 | Inpatient (IN) | payer OTHER ==
--- NOTE | 2019-06-11 19:04 | PDOC ---
History of Present Illness - General Chief Complaint: Injury Stated Complaint: FALL Time Seen by Provider: 06/11/19 18:20 - History of Present Illness Initial Comments: Mr. Shoemaker is a 88 y/o male with PMH significant for TAVR in 2018, HTN , HLD, BPH, emphysema, Stage 4 lung CA (2016, s/p keytiuda immunotherapy, no radiation/chemo), presenting today s/p unwitnessed fall around 1:30pm in the afternoon. Reports that he was turning the corner with his walker when he lost his balance and fell. Reports hitting his right forehead. No LOC. Denies nausea/ vomiting. Denies dizziness or palpitations prior to fall. Denies chest pain. Denies abdominal pain. Denies urinary symptoms or diarrhea. His home health aide helped him up into a chair and called EMS. Meds: param Past History - Past Medical History Allergies/Adverse Reactions: Allergies Allergy/AdvReac Type Severity Reaction Status Date / Time No Known Allergies Allergy Unverified 06/11/19 19:55 Home Medications: Ambulatory Orders Lutein 10 mg PO DAILY tablet 07/26/12 Atorvastatin Calcium 20 mg PO DAILY tablet 11/25/16 Biotin 5,000 mcg PO ASDIR capsule 11/25/16 Famotidine [Pepcid] 40 mg PO BID 04/27/19 Tizanidine HCl 2 mg PO HS 04/27/19 Clotrimazole 15 gm TP BID 04/28/19 Atorvastatin Ca [Lipitor] 20 mg PO HS tablet 04/30/19 Clopidogrel Bisulfate [Plavix] 75 mg PO DAILY #30 tablet 04/30/19 Clotrimazole [Lotrimin -] 1 applic TP BID tube 04/30/19 Docusate Sodium [Colace -] 100 mg PO BID capsule 04/30/19 Enoxaparin [Lovenox -] 60 mg SQ Q12H #60 disp.syrin 04/30/19 Ferrous Sulfate [Feosol] 325 mg PO BIDWM ud 04/30/19 Lactobacillus Acidophilus [Bacid -] 1 each PO HS #30 capsule 04/30/19 Olmesartan Medoxomil [Benicar] 5 mg PO DAILY #30 tablet 04/30/19 Tamsulosin HCl [Flomax -] 0.4 mg PO #60 cap 04/30/19 levoFLOXacin [Levaquin -] 500 mg PO DAILY #5 tablet 04/30/19 Cancer: Yes (lung w/ mets to spine) Cardiac Disorders: Yes (Recent TAVR) COPD: Yes GI Disorders: Yes (colitis) HTN: Yes - Surgical History Cardiac Surgery: Yes (TAVR 04/2019) - Psycho Social/Smoking Cessation Hx Smoking History: Never smoked Have you smoked in the past 12 months: No Information on smoking cessation initiated: No Hx Alcohol Use: No Drug/Substance Use Hx: No Review of Systems - Review of Systems Comments:: GENERAL/CONSTITUTIONAL: No fever or chills. No weakness._ HEAD, EYES, EARS, NOSE AND THROAT: No change in vision. No change in hearing. No sore throat._ CARDIOVASCULAR: No chest pain or shortness of breath_ RESPIRATORY: Denies cough, hemoptysis_ GASTROINTESTINAL: No nausea, vomiting, diarrhea or constipation._ GENITOURINARY: No dysuria, frequency, or change in urination._ MUSCULOSKELETAL: No joint or muscle swelling or pain. No neck or back pain._ SKIN: No rash_ NEUROLOGIC: Reports mild headache, vertigo, loss of consciousness, or change in strength/sensation._ ENDOCRINE: No increased thirst. No abnormal weight change_ HEMATOLOGIC/LYMPHATIC: No anemia, easy bleeding, or history of blood clots._ ALLERGIC/IMMUNOLOGIC: No hives or skin allergy._ *Physical Exam - Vital Signs Last Vital Signs Temp Pulse Resp BP Pulse Ox 98.1 F 83 20 152/44 L 100 06/11/19 17:58 06/11/19 17:58 06/11/19 17:58 06/11/19 17:58 06/11/19 17:58 - Physical Exam GENERAL: Awake, alert, and oriented to person/place/time, in no acute distress_ HEAD: No signs of trauma, normoc ephalic, atraumatic _ EYES: PERRLA, EOMI, sclera anicteric, conjunctiva clear_ ENT: Hearing grossly normal, nares patent, oropharynx clear without exudates. No uvular deviation. Moist mucosa_ NECK: Normal ROM, supple, no lymphadenopathy, JVD, or masses_ LUNGS: No distress, speaks in full sentences, clear to auscultation bilaterally _ HEART: Regular rate and rhythm, normal S1 and S2, peripheral pulses normal and equal bilaterally._ ABDOMEN: Soft, nontender, normoactive bowel sounds. No guarding, no rebound. No masses_ EXTREMITIES: Normal inspection, Normal range of motion, no edema. No clubbing or cyanosis_ NEUROLOGICAL: CN II-XII tested and intact. Sensation intact to sharp/dull differentiation in all extremities. Motor: Normal tone and bulk. No abnormal movements appreciated. No pronator drift. Strength tested and 5/5 in bilateral wrist flexion/extension, elbow flexion/extension, shoulder abduction, straight leg raise, knee flexion/ extension, ankle dorsiflexion/plantarflexion. Patient ambulates with a steady gait. Coordination: Finger to nose and heel to loya testing intact bilaterally. SKIN: Warm, Dry, normal turgor, no rashes or lesions noted_ RECTAL: No masses, no obvious bleeding. Normal rectal tone. Minimal stool in rectal vault. ED Treatment Course - LABORATORY CBC & Chemistry Diagram: 06/11/19 20:11 06/11/19 20:11 - RADIOLOGY Radiology Studies Ordered: Category Date Time Status CERVICAL SPINE CT W/O CONTR [CT] Stat CT Scan 06/11/19 18:[address] WITHOUT CONTRAST [CT] Stat CT Scan 06/11/19 18:47 Ordered CHEST X-RAY PORTABLE* [RAD] Stat Radiology 06/11/19 18:48 Ordered Medical Decision Making - Medical Decision Making 06/11/19 19:15 88M s/p TAVR, on eliquis, hx of lung CA and DVT/PE, presenting s/p fall this afternoon. -cbc, cmp, coags -ekg, trop, cxr -CT head/neck 06/11/19 20:26 EKG shows sinus rhythm with occasional PVCs, no ST elevation, 82 bpm, no axis deviation, QTc 441. 06/11/19 22:26 Labs reviewed. Plan to transfuse 2 units of blood. Rpt trop, concern for demand ischemia. Laboratory Last Values WBC 7.7 K/mm3 (4.0-10.0) 06/11/19 20:11 RBC 2.88 M/mm3 (4.00-5.60) L 06/11/19 20:11 Hgb 7.3 GM/dL (11.7-16.9) L 06/11/19 20:11 Hct 23.2 % (35.4-49) L D 02/03/20 20:11 MCV 80.6 fl (80-96) 06/11/19 20:11 MCH 25.3 pg (25.7-33.7) L 06/11/19 20:11 MCHC 31.3 g/dl (32.0-35.9) L 06/11/19 20:11 RDW 19.7 % (11.9-15.9) H 06/11/19 20:11 Plt Count 221 K/MM3 (134-434) 06/11/19 20:11 MPV 9.9 fl (7.5-11.1) 06/11/19 20:11 Absolute Neuts (auto) 6.7 K/mm3 (1.5-8.0) 06/11/19 20:11 Neutrophils % 86.6 % (42.8-82.8) H 06/11/19 20:11 Lymphocytes % 5.9 % (8-40) L D 06/11/19 20:11 Monocytes % 6.3 % (3.8-10.2) 06/11/19 20:11 Eosinophils % 0.7 % (0-4.5) 06/11/19 20:11 Basophils % 0.5 % (0-2.0) 06/11/19 20:11 Nucleated RBC % 0 % (0-0) 06/11/19 20:11 PT with INR 15.60 SEC (9.7-13.0) H 06/11/19 20:11 INR 1.32 (0.83-1.09) H 06/11/19 20:11 PTT (Actin FS) 29.6 SECONDS (25.2-36.5) 06/11/19 20:11 Sodium 141 mmol/L (136-145) 06/11/19 20:11 Potassium 4.9 mmol/L (3.5-5.1) 06/11/19 20:11 Chloride 111 mmol/L (98-107) H 06/11/19 20:11 Carbon Dioxide 23 mmol/L (21-32) 06/11/19 20:11 Anion Gap 7 MMOL/L (8-16) L 06/11/19 20:11 BUN 40.5 mg/dL (7-18) H 06/11/19 20:11 Creatinine 1.4 mg/dL (0.55-1.3) H 06/11/19 20:11 Est GFR (CKD-EPI)AfAm 51.62 06/11/19 20:11 Est GFR (CKD-EPI)NonAf 44.54 06/11/19 20:11 Random Glucose 144 mg/dL (74-106) H 06/11/19 20:11 Calcium 8.2 mg/dL (8.5-10.1) L 06/11/19 20:11 Total Bilirubin 0.2 mg/dL (0.2-1) 06/11/19 20:11 AST 7 U/L (15-37) L 06/11/19 20:11 ALT 14 U/L (13-61) 06/11/19 20:11 Alkaline Phosphatase 61 U/L (45-117) 06/11/19 20:11 Creatine Kinase 43 U/L (26-308) 06/11/19 20:11 Troponin I 0.10 ng/ml (0.00-0.05) H 06/11/19 20:11 Total Protein 5.2 g/dl (6.4-8.2) L 06/11/19 20:11 Albumin 2.9 g/dl (3.4-5.0) L 06/11/19 20:11 06/11/19 22:27 CT head shows no acute intracranial pathology. CT neck shows no fracture. CXR shows no acute intra thoracic pathology. 06/11/19 22:59 D/w Dr. Rendon who accepts the patient for admission for Dr. Garcia. Discharge - Discharge Information Problems reviewed: Yes Clinical Impression/Diagnosis: Anemia Condition: Stable - Admission Yes - Follow up/Referral - Patient Discharge Instructions - Post Discharge Activity
[2019-06-11 20:39] LABS: BASO % 0.5 % (0-2.0); EOS % 0.7 % (0-4.5); HEMATOCRIT 23.2 % (35.4-49); HEMOGLOBIN 7.3 GM/dL (11.7-16.9); LYMPH % 5.9 % (8-40); MCH 25.3 pg (25.7-33.7); MCHC 31.3 g/dl (32.0-35.9); MEAN CELL VOLUME 80.6 fl (80-96); MEAN PLT VOLUME 9.9 fl (7.5-11.1); MONO % 6.3 % (3.8-10.2); NEUT % 86.6 % (42.8-82.8); PLATELET COUNT 221 K/MM3 (134-434); RBC 2.88 M/mm3 (4.00-5.60); RDW 19.7 % (11.9-15.9); WHITE BLOOD COUNT 7.7 K/mm3 (4.0-10.0)
--- NOTE | 2019-06-11 20:48 | PDOC ---
Attending Attestation - Resident Resident Name: Jostin Brown - ED Attending Attestation I have performed the following: I have examined & evaluated the patient, The case was reviewed & discussed with the resident, I agree w/resident's findings & plan, Exceptions are as noted - HPI HPI: 06/11/19 20:45 88yoM w/ stage 4 lung CA not on chemo, PE on elequis, TAVR presents w/ fall while turning a corner in setting of feeling weaker than usual over past few days. feeling BARGER. NO fevers, no new cough, no AMS, no n/v/d. - Physicial Exam PE: 06/11/19 20:46 NAD,well appearing small hematoma forehead RRR CTABL soft NTND pelvis stable, FROM all 4 ext, nontender hips, legs = length no midline spinal tenderness A&O x 3 - Medical Decision Making 06/11/19 20:47 88yoM w/ mechanical fall at home in setting of feelings of increased weakness and BARGER over past few days. Hx of lung CA, PE on elequis, TAVR. - labs - hct, ct cspine - cxr - ua - ivf - consider repeat CTA r/o new/recurrent PE - Dispo per results.
[2019-06-11 21:09] LABS: INR 1.32 (0.83-1.09); PROTHROMBIN TIME (PATIENT) 15.6 SEC (9.7-13.0)
[2019-06-11 21:12] LABS: ACTIVATED PTT 29.6 SECONDS (25.2-36.5)
[2019-06-11 21:40] LABS: ALBUMIN 2.9 g/dl (3.4-5.0); BILIRUBIN,TOTAL 0.2 mg/dL (0.2-1); BLOOD UREA NITROGEN 40.5 mg/dL (7-18); CALCIUM 8.2 mg/dL (8.5-10.1); CREATININE 1.4 mg/dL (0.55-1.3); POTASSIUM 4.9 mmol/L (3.5-5.1); TOT PROT 5.2 g/dl (6.4-8.2)
--- NOTE | 2019-06-11 23:53 | HP ---
CHIEF COMPLAINT: fall and weakness PCP: Dr. 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 History obtained in patient's [place] language. Patient stated that he was taking a turn with his walker and he fell forward hitting his head on the walker. He denied any prodromal symptoms of dizziness, lightheadedness, palpitations, chest pain, shortness of breath, nausea, vomiting, diaphoresis prior to the event to suggest a syncopal episode. Denied loss of consciousness. He noted that he had been having difficulty ambulating and felt weak in his feet and noted that he may have been dragging them as well as his walker. Also endorsed that he had not been eating and drinking well in the last week. Denied recent travel or sick contacts. Endorsed that he had been taking all of his medications regularly. Stated that he had generalized weakness and chronic back pain. Stated he had dark stools but had been taking iron pills for an extended period of time. Denied hematochezia, hematemesis, hematuria, hemoptosis. Noted that his last colonoscopy was 2 years prior with a physician not affiliated with this hospital which the patient stated was normal. Also stated that he had an endoscopy performed within the last 4 years which he noted was also normal. Additionally, endorsed difficulty urinating but no dysuria, frequency, urgency. Stated that he continued to smoke daily. ER course was notable for: (1) H/H 7.3/23.2, BUN 40.5, CRE 1.4 (baseline 1.1-1.2), troponin 0.1, Alb 2.9 (2) CXR noting tortuosity and calcification of thoracic aorta and degenerative changes of the thoracic spine, no acute disease process (3) Head CT with no acute pathology, cervical spine CT with moderately severe degenerative arthritic changes with no acute fracture or pathology (4) Ordered for 2 units of PRBCs Recent Travel: denies PAST MEDICAL HISTORY: as above PAST SURGICAL HISTORY: b/l cataracts b/l iliac angioplasty + stents TAVR(Ivon, 04/20/19) Social History: Smoking: tobacco since 13y/o, (first used cigarettes, currently smokes a pipe) Alcohol: 1/4 - 1glass w/ meals; several times a week Drugs: denies Allergies No Known Allergies Allergy (Unverified 06/11/19 19:55) HOME MEDICATIONS: Home Medications Medication Instructions Recorded Lutein 10 mg PO DAILY tablet 07/26/12 Atorvastatin Calcium 20 mg PO DAILY tablet 11/25/16 Biotin 5,000 mcg PO ASDIR capsule 11/25/16 Famotidine [Pepcid] 40 mg PO BID 04/27/19 Tizanidine HCl 2 mg PO HS 04/27/19 Clotrimazole 15 gm TP BID 04/28/19 Atorvastatin Ca [Lipitor] 20 mg PO HS tablet 04/30/19 Clopidogrel Bisulfate [Plavix] 75 mg PO DAILY #30 tablet 04/30/19 Clotrimazole [Lotrimin -] 1 applic TP BID tube 04/30/19 Docusate Sodium [Colace -] 100 mg PO BID capsule 04/30/19 Enoxaparin [Lovenox -] 60 mg SQ Q12H #60 disp.syrin 04/30/19 Ferrous Sulfate [Feosol] 325 mg PO BIDWM ud 04/30/19 Lactobacillus Acidophilus [Bacid -] 1 each PO HS #30 capsule 04/30/19 Olmesartan Medoxomil [Benicar] 5 mg PO DAILY #30 tablet 04/30/19 Tamsulosin HCl [Flomax -] 0.4 mg PO #60 cap 04/30/19 levoFLOXacin [Levaquin -] 500 mg PO DAILY #5 tablet 04/30/19 REVIEW OF SYSTEMS CONSTITUTIONAL: generalized weakness, loss of appetite, weight change (10 lb wt loss over 1 year) Absent: fever, chills, diaphoresis, malaise HEENT: Absent: rhinorrhea, nasal congestion, throat pain, throat swelling, difficulty swallowing, visual changes CARDIOVASCULAR: Absent: chest pain, syncope, palpitations, irregular heart rate, lightheadedness , peripheral edema RESPIRATORY: Absent: cough, shortness of breath, dyspnea with exertion, orthopnea, wheezing, GASTROINTESTINAL: dark stool (on iron supplementation) Absent: abdominal pain, abdominal distension, nausea, vomiting, diarrhea, constipation GENITOURINARY: hesitancy Absent: dysuria, frequency, urgency, hematuria, flank pain, genital pain MUSCULOSKELETAL: back pain, arthralgia Absent: myalgia, joint swelling, neck pain SKIN: Absent: rash, itching, pallor HEMATOLOGIC/IMMUNOLOGIC: easy bruising Absent: easy bleeding, lymphadenopathy, frequent infections ENDOCRINE: Absent: heat intolerance, cold intolerance NEUROLOGIC: unsteady gait Absent: headache, focal weakness or paresthesias, dizziness, seizure, mental status changes PSYCHIATRIC: Absent: anxiety, depression, suicidal or homicidal ideation, hallucinations. PHYSICAL EXAMINATION Vital Signs - 24 hr 06/11/19 06/11/19 17:58 22:10 Temperature 98.1 F 97.9 F Pulse Rate 83 Pulse Rate [ 71 Apical] Respiratory 20 24 H Rate Blood Pressure 152/44 L Blood Pressure 126/57 L [Right Arm] O2 Sat by Pulse 100 99 Oximetry (%) GENERAL: Awake, alert, and fully oriented, in no acute distress. Thin appearing. HEAD: Noted small bruising on the R side of the forehead. EYES: Pupils equal, round and reactive to light, extraocular movements intact, sclera anicteric, conjunctiva clear. EARS, NOSE, THROAT: Oropharynx clear without exudates. Very dry mucous membranes. NECK: Normal range of motion, supple without lymphadenopathy, JVD. LUNGS: Breath sounds equal and decreased bilaterally. HEART: Regular rate and rhythm, normal S1 and S2 with present systolic ejection murmur and occasional extra beats. ABDOMEN: Soft, nontender, not distended, normoactive bowel sounds, no guarding, no rebound, no masses. RECTAL: No external or internal hemorrhoids noted, no fissure noted, no retained stool. Rectal tone intact. MUSCULOSKELETAL: Normal range of motion at all joints. Tenderness to palpation of the back. UPPER EXTREMITIES: 2+ pulses, warm, well-perfused. No cyanosis. No clubbing. No peripheral edema. LOWER EXTREMITIES: 2+ pulses, warm, well-perfused. No calf tenderness. No peripheral edema. NEUROLOGICAL: Cranial nerves II-XII intact. 5/5 muscle strength upper and lower extremities bilaterally. Sensation intact to gross touch throughout. PSYCHIATRIC: Cooperative. Good eye contact. Appropriate mood and affect. SKIN: Warm, dry, decreased turgor, scattered ecchymoses throughout. Laboratory Results - last 24 hr 06/11/19 06/11/19 06/11/19 20:00 20:11 20:11 WBC 7.7 RBC 2.88 L Hgb 7.3 L Hct 23.2 L D MCV 80.6 MCH 25.3 L MCHC 31.3 L RDW 19.7 H Plt Count 221 MPV 9.9 Absolute Neuts (auto) 6.7 Neutrophils % 86.6 H Lymphocytes % 5.9 L D Monocytes % 6.3 Eosinophils % 0.7 Basophils % 0.5 Nucleated RBC % 0 PT with INR INR PTT (Actin FS) Sodium 141 Potassium 4.9 Chloride 111 H Carbon Dioxide 23 Anion Gap 7 L BUN 40.5 H Creatinine 1.4 H Est GFR (CKD-EPI)AfAm 51.62 Est GFR (CKD-EPI)NonAf 44.54 Random Glucose 144 H Calcium 8.2 L Ferritin 13.9 Total Bilirubin 0.2 AST 7 L ALT 14 Alkaline Phosphatase 61 Creatine Kinase 43 Troponin I 0.10 H Total Protein 5.2 L Albumin 2.9 L Stool Occult Blood Crossmatch 06/11/19 06/11/19 06/11/19 20:11 23:00 23:04 WBC RBC Hgb Hct MCV MCH MCHC RDW Plt Count MPV Absolute Neuts (auto) Neutrophils % Lymphocytes % Monocytes % Eosinophils % Basophils % Nucleated RBC % PT with INR 15.60 H INR 1.32 H PTT (Actin FS) 29.6 Sodium Potassium Chloride Carbon Dioxide Anion Gap BUN Creatinine Est GFR (CKD-EPI)AfAm Est GFR (CKD-EPI)NonAf Random Glucose Calcium Ferritin Total Bilirubin AST ALT Alkaline Phosphatase Creatine Kinase Troponin I Total Protein Albumin Stool Occult Blood Positive Crossmatch See Detail EKG--> sinus with PVCs, no ST segment changes, QTc 441 ASSESSMENT/PLAN: Davion Shoemaker is an 88 year old Macanese/Lithuanian speaking male with a past medical history of hearing deficiency, GERD, HTN, chronic tobacco usage, Lung Ca (Stage IV w/ mets to L-spine, Aortic Stenosis s/p TAVR, pulmonary embolism (on Eliquis) admitted for fall with head hit on Eliquis and anemia. Fall - likely mechanical in the setting of patient's weakness, anemia, and medical history - orthostatics ordered - receiving hydration and blood transfusion - last echo in Apr 2019 noting EF 50-55%, impaired LV relaxation, borderline dilated left atrium, mild to moderate mitral annular calcification, mild mitral valve thickening, mild tricuspid regurg, trace aortic regurg, s/ps TAVR - monitor on telemetry - EKG as above - physical therapy - bedrest - fall precautions - CT head and cervical spine as above - highly consider repeat CT head after 24 hours - neurochecks Anemia - previously Hgb 10.2 in April - unclear sign of anemia or overt bleeding - FOBT positive however patient on iron supplementation - iron studies suggestive of iron deficiency anemia - 2 units transfusion, continue to monitor - GI consulted - NPO - Protonix for GI prophylaxis GELY - baseline CRE 1.1-1.2 - likely in setting of anemia and pre-renal etiology - kidney/bladder U/S - UA/lytes/CRE to calculate FeNA Troponemia - no signs of ACS, EKG as above, likely demand - continue to trend - telemetry monitoring Hypoalbuminemia - likely in setting of poor oral intake - dietary consult Hx of PE - hold Eliquis in setting of likely GI bleed and anemia undergoing transfusions - can restart when clinically appropriate - continue to monitor to telemetry for signs of PE - currently Wells score 1.5 (previously diagnosed PE) Tobacco Abuse - counseled on cessation, stressed importance of cessation in patient's multiple medical comorbidities HTN - continue home Benicar HLD - continue home atorvastatin BPH - continue home Flomax - caution with Flomax as it may cause dizziness, syncope episodes. Patient however has difficulty urinating Chronic Back Pain - continue home tizanidine - caution with medication and advise changing medication as it may cause syncope /hypotension/dizziness episodes in elderly patients DVT PPx - SCDs - no chemical AC in setting of anemia and likely acute bleed FEN - NS at 50cc/hr - continue to monitor electrolytes and replete as necessary - NPO pending GI recommendations Dispo - admit to telemetry Family Medical History Family History: Denies Visit type - Emergency Visit Emergency Visit: Yes ED Registration Date: 06/11/19 Care time: The patient presented to the Emergency Department on the above date and was hospitalized for further evaluation of their emergent condition. - New Patient This patient is new to me today: Yes Date on this admission: 06/12/19 - Critical Care Critical Care patient: No
--- NOTE | 2019-06-12 00:21 | PN ---
Teaching Attending Note Name of Resident: Ayden Rendon ATTENDING PHYSICIAN STATEMENT I saw and evaluated the patient. I reviewed the resident's note and discussed the case with the resident. I agree with the resident's findings and plan as documented. SUBJECTIVE: This is an 88 year old man with a history of HTN, hyperlipidemia, TAVR for , PAD with bilateral iliac stents, PE, metastatic lung cancer, GERD who comes to the ED after falling at home. The patient states that while walking using his walker, he was turning, and fell forward hitting his head on the walker. He denies losing consciousness. He denies dizziness, chest pain, palpitations. He says he has been feeling weak and has not been eating or drinking much for the past week. OBJECTIVE: Vital Signs Period Temp Pulse Resp BP Sys/Martin Pulse Ox Last 24 Hr 97.9 F-98.1 F 71-83 20-24 126-152/44-57 99-100 GENERAL: No distress HEENT: Dry mucous membranes HEART: S1S2, RRR, (+) PVCs LUNGS: Clear ABDOMEN: Soft, non-tender, non-distended, normal BS EXTREMITIES: No edema Laboratory Tests 06/11/19 06/11/19 06/11/19 20:00 20:11 20:11 WBC 7.7 RBC 2.88 L Hgb 7.3 L Hct 23.2 L D MCV 80.6 MCH 25.3 L MCHC 31.3 L RDW 19.7 H Plt Count 221 MPV 9.9 Absolute Neuts (auto) 6.7 Neutrophils % 86.6 H Lymphocytes % 5.9 L D Monocytes % 6.3 Eosinophils % 0.7 Basophils % 0.5 Nucleated RBC % 0 PT with INR INR PTT (Actin FS) Sodium 141 Potassium 4.9 Chloride 111 H Carbon Dioxide 23 Anion Gap 7 L BUN 40.5 H Creatinine 1.4 H Est GFR (CKD-EPI)AfAm 51.62 Est GFR (CKD-EPI)NonAf 44.54 Random Glucose 144 H Calcium 8.2 L Ferritin 13.9 Total Bilirubin 0.2 AST 7 L ALT 14 Alkaline Phosphatase 61 Creatine Kinase 43 Troponin I 0.10 H Total Protein 5.2 L Albumin 2.9 L Stool Occult Blood Crossmatch 06/11/19 06/11/19 06/11/19 20:11 23:00 23:04 WBC RBC Hgb Hct MCV MCH MCHC RDW Plt Count MPV Absolute Neuts (auto) Neutrophils % Lymphocytes % Monocytes % Eosinophils % Basophils % Nucleated RBC % PT with INR 15.60 H INR 1.32 H PTT (Actin FS) 29.6 Sodium Potassium Chloride Carbon Dioxide Anion Gap BUN Creatinine Est GFR (CKD-EPI)AfAm Est GFR (CKD-EPI)NonAf Random Glucose Calcium Ferritin Total Bilirubin AST ALT Alkaline Phosphatase Creatine Kinase Troponin I Total Protein Albumin Stool Occult Blood Positive Crossmatch See Detail Home Medications Medication Instructions Recorded Lutein 10 mg PO DAILY tablet 07/26/12 Atorvastatin Calcium 20 mg PO DAILY tablet 11/25/16 Biotin 5,000 mcg PO ASDIR capsule 11/25/16 Famotidine [Pepcid] 40 mg PO BID 04/27/19 Tizanidine HCl 2 mg PO HS 04/27/19 Clotrimazole 15 gm TP BID 04/28/19 Atorvastatin Ca [Lipitor] 20 mg PO HS tablet 04/30/19 Clopidogrel Bisulfate [Plavix] 75 mg PO DAILY #30 tablet 04/30/19 Clotrimazole [Lotrimin -] 1 applic TP BID tube 04/30/19 Docusate Sodium [Colace -] 100 mg PO BID capsule 04/30/19 Enoxaparin [Lovenox -] 60 mg SQ Q12H #60 disp.syrin 04/30/19 Ferrous Sulfate [Feosol] 325 mg PO BIDWM ud 04/30/19 Lactobacillus Acidophilus [Bacid -] 1 each PO HS #30 capsule 04/30/19 Olmesartan Medoxomil [Benicar] 5 mg PO DAILY #30 tablet 04/30/19 Tamsulosin HCl [Flomax -] 0.4 mg PO #60 cap 04/30/19 levoFLOXacin [Levaquin -] 500 mg PO DAILY #5 tablet 04/30/19 ASSESSMENT AND PLAN: This is an 88 year old man with a history of HTN, hyperlipidemia, TAVR for , PAD with bilateral iliac stents, PE, metastatic lung cancer, GERD who presented to the ED after falling at home. 1. s/p fall - Doubt syncope - Monitor on telemetry - Check orthostatics - PT evaluation 2. Acute kidney injury - Likely secondary to hypovolemia - IV fluid/PRBCs - Monitor BUN, creatinine 3. Anemia, possibly secondary to acute GI blood loss - Stool occult blood (+) - Hgb 7.3 today, was 10.2 on 04/30/19 - MCV 80.6 today, was 76.5 on 04/30/19 - Iron supplementation was started on 04/29/19 - 2 units PRBCs ordered by ED - Patient reports normal colonoscopy within 2 years and normal endoscopy within 5 years - Change Pepcid to Protonix - Continue ferrous sulfate - Hold Plavix, Eliquis 4. History of PE (04/2019) - Hold Eliquis secondary to possible GI bleed and anemia 5. HTN - Continue Benicar 6. Hyperlipidemia - Continue Lipitor 7. Aortic stenosis, history of TAVR 8. PAD, history of biliac iliac artery stents - Hold Plavix secondary to possible GI bleed with anemia 9. Stage IV lung cancer with metastases to L-spine - Treated with RT, Keytruda 10. GERD - Change Pepcid to Protonix for possible GI bleed
[2019-06-12 00:45] LABS: N-TERMINAL BNP 272.5 pg/ml (5-450)
[2019-06-12 01:19] LABS: RETICULOCYTES 4.89 % (0.5-1.5)
[2019-06-12 06:08] LABS: BASO % 0.8 % (0-2.0); EOS % 2.8 % (0-4.5); HEMATOCRIT 23.9 % (35.4-49); HEMOGLOBIN 7.7 GM/dL (11.7-16.9); LYMPH % 10.9 % (8-40); MCH 26.2 pg (25.7-33.7); MCHC 32.3 g/dl (32.0-35.9); MEAN PLT VOLUME 9.7 fl (7.5-11.1); MONO % 9.3 % (3.8-10.2); NEUT % 76.2 % (42.8-82.8); PLATELET COUNT 212 K/MM3 (134-434); RBC 2.95 M/mm3 (4.00-5.60); RDW 19.1 % (11.9-15.9); WHITE BLOOD COUNT 7.7 K/mm3 (4.0-10.0)
[2019-06-12 06:26] LABS: INR 1.17 (0.83-1.09); PROTHROMBIN TIME (PATIENT) 13.8 SEC (9.7-13.0)
[2019-06-12 06:28] LABS: ACTIVATED PTT 28.3 SECONDS (25.2-36.5)
[2019-06-12 06:41] LABS: ALBUMIN 2.8 g/dl (3.4-5.0); BLOOD UREA NITROGEN 35.5 mg/dL (7-18); CALCIUM 7.9 mg/dL (8.5-10.1); CREATININE 1.2 mg/dL (0.55-1.3); MAGNESIUM 2.4 mg/dL (1.8-2.4); POTASSIUM 4.1 mmol/L (3.5-5.1); TOT PROT 4.9 g/dl (6.4-8.2)
[2019-06-12] MEDS: FERROUS SO4 325 MG TABLET (FP) PO SCH ×2 (08:02→17:27)
[2019-06-12] MEDS: TAMSULOSIN HCL 0.4 MG CAP PO SCH ×3 (08:35→23:52)
--- NOTE | 2019-06-12 09:24 | EKG ---
Test Reason : Blood Pressure : / mmHG Vent. Rate : 082 BPM Atrial Rate : 082 BPM P-R Int : 134 ms QRS Dur : 070 ms QT Int : 378 ms P-R-T Axes : -05 009 031 degrees QTc Int : 441 ms SINUS RHYTHM WITH OCCASIONAL PREMATURE VENTRICULAR COMPLEXES OTHERWISE NORMAL ECG WHEN COMPARED WITH ECG OF 27-APR-2019 18:29, NO SIGNIFICANT CHANGE WAS FOUND Confirmed by Jostin Early MD ([id number]) on 06/12/2019 9:24:21 AM Referred By: Confirmed By:Jostin Early MD
[2019-06-12] MEDS ORDERED: PANTOPRAZOLE 40 MG TABLET PO SCH (10:00)
[2019-06-12] MEDS ORDERED: PATIENT'S OWN MEDICATION (NON-FORMULARY) (Famotidine [Pepcid] 40 MG) PO SCH (10:00)
--- NOTE | 2019-06-12 10:09 | EKG ---
Test Reason : Blood Pressure : / mmHG Vent. Rate : 069 BPM Atrial Rate : 069 BPM P-R Int : 130 ms QRS Dur : 080 ms QT Int : 400 ms P-R-T Axes : -12 021 038 degrees QTc Int : 428 ms SINUS RHYTHM WITH OCCASIONAL PREMATURE VENTRICULAR COMPLEXES LOW VOLTAGE QRS BORDERLINE ECG WHEN COMPARED WITH ECG OF 11-JUN-2019 19:33, NO SIGNIFICANT CHANGE WAS FOUND Confirmed by Jostin Early MD ([id number]) on 06/12/2019 10:09:19 AM Referred By: Royce GARCIA Confirmed By:Jostin Early MD
[2019-06-12] MEDS: VALSARTAN 40 MG TABLET (FP) PO SCH (12:01)
[2019-06-12] MEDS: CLOTRIMAZOLE 1% CREAM 15 GM TUBE TP SCH ×2 (12:19→23:44)
[2019-06-12] MEDS: SODIUM CHLORIDE 1,000 ML IV SCH ×4 (12:32→23:56)
--- NOTE | 2019-06-12 13:55 | PN ---
Progress Note (short form) - Note Progress Note: GI CONSULT DICTATED PPI INFUSON HOLD ELIQUIS CLEAR LIQUID DIET SERIAL CBC Q12 PLAN FOR DIAGNOSTIC EGD LATE THIS WEEK SEE FULL CONSULT DICTATED
--- NOTE | 2019-06-12 14:54 | CONS ---
GASTROINTESTINAL CONSULTATION DATE OF CONSULTATION: DATE OF DICTATION: 06/12/2019 HISTORY OF PRESENT ILLNESS: Patient is an 88-year-old, man with a past medical history of reflux disease, hypertension, tobacco use, lung cancer stage 4 with metastasis to the lower spine status post radiation in 2016 and Keytruda, course was complicated by pneumonitis and diarrhea which resolved, on Imodium in the past, also with aortic stenosis status post TAVR, pulmonary embolism on Eliquis, who has been seeing Dr. Diop as an outpatient for his anemia, as well as chemotherapy-induced diarrhea which now is resolved. He states, his last colonoscopy was approximately 2 years ago, as well as an upper endoscopy and that was done at [facility]. Dr. Diop has not performed an upper endoscopy or colonoscopy on this patient. Also, he has not had a capsule study done. Apparently, he has a long history of anemia and has been on iron supplementation. He now presents to the hospital with complaints of weakness and a fall which appears to be mechanical. In the emergency room, he was noted to have a hemoglobin of 7.3 and also a mildly elevated troponin. As per the patient and the at the bedside, there is no history of melena, hematochezia, hematemesis or abdominal pain. He states, he has been feeling okay. PAST MEDICAL AND SURGICAL HISTORY: As listed in the HPI with the addition of cataracts, iliac angioplasty and stents. SOCIAL HISTORY: Tobacco since the age of 13. Currently smokes a pipe. Alcohol: Drinks a glass of wine with meals a couple of times a week. No drug abuse. ALLERGIES: No known drug allergies. HOME MEDICATIONS: Reviewed, include lutein, atorvastatin, biotin, Pepcid, tizanidine, , Plavix, Lotrimin, Colace, Lovenox, iron, Benicar, Flomax, and Levaquin. REVIEW OF SYSTEMS: As per the HPI. PHYSICAL EXAMINATION: Vital Signs: Temperature 98, pulse 72, blood pressure 155/65, respiratory rate 12, oxygen saturation 99% on room air. General: In no acute distress. HEENT: Anicteric sclera. Cardiovascular: S1, S2. Regular rate and rhythm. Lungs: Bilaterally clear to auscultation. Abdomen: Soft and nontender. Extremities: Without edema. LABORATORIES: White blood cell count 7.7, hemoglobin on admission 7.3 currently 7.7, hematocrit 23.9, MCV 81, platelet count 212. INR 1.1. Sodium 141, potassium 4.1, BUN over creatinine 35 over 1.2, magnesium 2.4, iron 98, TIBC 303, iron yesterday was 33. AST 9, ALT 12, alkaline phosphatase 60. Troponin is 0.12. Stool for occult blood was positive. Cultures were not done. IMAGING: He had a head CT, which did not reveal intracranial pathology. There is also a cervical spine CT, which revealed severe degenerative arthritis. He had an abdomen and pelvis CT scan in 2016, for which I am unable to open the report at this time. IMPRESSION: Iron-deficiency anemia. Gastrointestinal blood loss cannot be excluded, at this time. There is no sign of an overt GI bleed. RECOMMENDATION: Protonix 40 mg IV daily. Would advance him to a clear liquid diet and to a regular diet as tolerated. Hold his Eliquis, for now. Oncology evaluation. Avoid NSAIDs. Serial hemoglobin and hematocrit q.12. He would benefit from a diagnostic upper endoscopy. However, he will need to be off of the Eliquis for 72 hours prior to any endoscopic procedures and he will need a cardiac clearance prior to the procedure, considering he does have an abnormal troponin. This patient will be followed by the GI service. DO KURT NOYOLA/[id number]
--- NOTE | 2019-06-12 17:42 | PN ---
Physical Exam: SUBJECTIVE: Patient seen and examined. Pt is currently laying in bed but unable to stand. Pt states that he uses a roller. Pt has difficulty hearing but has bedside. No overnight events. Afebrile and asymptomatic. Denies f/c/n/v/d/ sob,cp OBJECTIVE: Vital Signs Period Temp Pulse Resp BP Sys/Martin Pulse Ox Last 24 Hr 97.7 F-98.6 F 65-83 16-24 126-165/44-84 99-100 GENERAL: The patient is awake, alert, and fully oriented, in no acute distress. Elderly, cachetic EYES: PERRL, extraocular movements intact, sclera anicteric, conjunctiva clear. No ptosis. ENT: dry mucous membranes. NECK: Trachea midline, full range of motion, supple. LUNGS: Breath sounds equal, clear to auscultation bilaterally, no wheezes, no crackles HEART: Regular rate and rhythm, S1, S2 without murmur, rub or gallop. ABDOMEN: Soft, nontender, nondistended, normoactive bowel sounds, no guarding, EXTREMITIES: 2+ pulses, warm, well-perfused, no edema. NEUROLOGICAL: Cranial nerves II through XII grossly intact. PSYCH: Normal mood, normal affect. SKIN: Warm, dry, normal turgor, no rashes or lesions noted Laboratory Results - last 24 hr CBC, BMP 06/12/19 05:30 06/12/19 05:30 Active Medications Current Medications Atorvastatin Calcium (Lipitor -) 20 mg PO HS [facility] Clotrimazole (Lotrimin 1% Cream -) 1 applic TP BID [facility] Last Admin: 06/12/19 12:19 Dose: Not Given Ferrous Sulfate (Feosol -) 325 mg PO BIDWM [facility] Last Admin: 06/12/19 08:02 Dose: Not Given Sodium Chloride (Normal Saline -) 1,000 mls @ 50 mls/hr IV ASDIR [facility] Stop: 06/12/19 23:51 Last Admin: 06/12/19 12:32 Dose: 50 mls/hr Lactobacillus Acidophilus (Bacid -) 1 tab PO HS [facility] Pantoprazole Sodium (Protonix Iv) 40 mg IVPUSH BID [facility] Tamsulosin HCl (Flomax -) 0.4 mg PO 829,1999 [facility] Last Admin: 06/12/19 13:17 Dose: 0.4 mg Tizanidine HCl (Tizanidine Hcl) 2 mg PO HS [facility] Valsartan (Diovan -) 40 mg PO DAILY [facility] Last Admin: 06/12/19 12:01 Dose: 40 mg Home Medications Medication Instructions Recorded Lutein 10 mg PO DAILY tablet 07/26/12 Biotin 5,000 mcg PO ASDIR capsule 11/25/16 Famotidine [Pepcid] 40 mg PO BID 04/27/19 Tizanidine HCl 2 mg PO Q12H PRN 04/27/19 Atorvastatin Ca [Lipitor] 20 mg PO HS tablet 04/30/19 Clopidogrel Bisulfate [Plavix] 75 mg PO DAILY #30 tablet 04/30/19 Docusate Sodium [Colace -] 100 mg PO BID capsule 04/30/19 Olmesartan Medoxomil [Benicar] 5 mg PO DAILY #30 tablet 04/30/19 Tamsulosin HCl [Flomax -] 0.4 mg PO #60 cap 04/30/19 Apixaban [Eliquis] 5 mg PO BID 06/12/19 Megestrol Acetate 800 mg PO DAILY 06/12/19 Umeclidinium Brm/Vilanterol Tr 1 puff PO DAILY 06/12/19 [Anoro Ellipta 62.5-25 Mcg INH] ASSESSMENT/PLAN: 88 y/o M pmh GERD, HTN, chronic tobacco usage, 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 Elaine recom holding Plavix and Eliquis, EGD for late this week Protonix 40 Clear liquid diet #GELY US renal/bladder: b/l ureteral jets Cre normalized # s/p TAVR last echo in Apr 2019 noting EF 50-55%, impaired LV relaxation, borderline dilated left atrium, mild to moderate mitral annular calcification, mild mitral valve thickening, mild tricuspid regurg, trace aortic regurg, s/ps TAVR Hold plavix and eliquis #Hx of biliac iliac artery stents Hold Plavix secondary to possible GI bleed with anemia #Stage IV lung cancer with metastases to L-spine Treated with RT in the past, currently on Keytruda only #HLD Continue Lipitor #HTN Valsartan #DVT ppx SCDs FEN clear liquids monitor lytes Dispo: f/u CBC, monitor anemia, prep for EGD, f/u GI Visit type - Emergency Visit Emergency Visit: Yes ED Registration Date: 06/11/19 Care time: The patient presented to the Emergency Department on the above date and was hospitalized for further evaluation of their emergent condition. - New Patient This patient is new to me today: Yes Date on this admission: 06/13/19 - Critical Care Critical Care patient: No - Discharge Referral Referred to [facility] Med P.C.: No ATTENDING PHYSICIAN STATEMENT I saw and evaluated the patient. I reviewed the resident's note and discussed the case with the resident. I agree with the resident's findings and plan as documented. SUBJECTIVE: OBJECTIVE: ASSESSMENT AND PLAN:
[2019-06-12 18:05] LABS: URINE APPEARANCE CLOUDY; URINE BILIRUBIN NEGATIVE (NEGATIVE); URINE COLOR YELLOW; URINE GLUCOSE (UA) NEGATIVE (NEGATIVE); URINE KETONE NEGATIVE (NEGATIVE); URINE LEUK ESTERASE NEGATIVE (NEGATIVE); URINE NITRITE NEGATIVE (NEGATIVE); URINE PROTEIN NEGATIVE (NEGATIVE); URINE UROBILINOGEN 0.2 mg/dL (0.2-1.0)
[2019-06-12 18:21] LABS: HEMATOCRIT 30.7 % (35.4-49); HEMOGLOBIN 9.9 GM/dL (11.7-16.9); MCH 26.3 pg (25.7-33.7); MCHC 32.2 g/dl (32.0-35.9); MEAN CELL VOLUME 81.6 fl (80-96); MEAN PLT VOLUME 10.4 fl (7.5-11.1); PLATELET COUNT 210 K/MM3 (134-434); RBC 3.76 M/mm3 (4.00-5.60); RDW 18.4 % (11.9-15.9); WHITE BLOOD COUNT 8.7 K/mm3 (4.0-10.0)
[2019-06-12 20:17] VITALS: BMI 17.9
[2019-06-12] MEDS: ATORVASTATIN CA 20 MG TABLET (FP) PO SCH (23:43)
[2019-06-12] MEDS: LACTOBACILLUS ACIDOPHILUS 1 TABLET PO SCH (23:43)
[2019-06-12] MEDS: PANTOPRAZOLE SODIUM 40 MG VIAL IVPUSH SCH (23:44)
[2019-06-12] MEDS: TIZANIDINE HCL 2 MG TABLET PO SCH (23:53)
[2019-06-13] MEDS ORDERED: PATIENT'S OWN MEDICATION (NON-FORMULARY) (Biotin [Biotin] 5,000 MCG) PO SCH (07:30)
--- NOTE | 2019-06-13 07:46 | PN ---
Teaching Attending Note Name of Resident: Keagan Casey ATTENDING PHYSICIAN STATEMENT I saw and evaluated the patient. I reviewed the resident's note and discussed the case with the resident. I agree with the resident's findings and plan as documented. Seen and examined; please see resident note for further historical information. I personally verified all huston historical information and exam findings. Personally interpreted all imaging and diagnostics and reviewed appropriate consults. I reviewed all labs and vital signs as per resident note and EMR as documented. I agree with the above assessment and plan unless supplemented by myself in the following. 10 item review of systems completed and is negative aside from as discussed in the subjective data in my own/the resident documentation. VS, labs, imaging reviewed NAD, AAO, resting comfortably in bed. RRR s1/2 no mgr Normal muscle tone, moves all 5 extremities with normal apparent strength Neck is supple, trachea midline, no jass LN Lungs CTAB with sym expansion NT ND +BS no jass organomegaly CN2-12 wnl; no FND NC AT EOMI PERRLA Normal mood, appropriate behavior, euthymic affect No skin breakdown or rashes noted Assessment and plan: Improved admitting symptoms; d/w GI. PPI drip, holding AC, planning for EGD- appreciate expert consultation. -Mechanical fall (PT eval pending, orthostatics negative, non-exertional with no syncopal components) -Chronic Anemia +/- Acute blood loss anemia (+FOBT, per above. On PO Iron at home; s/p normal c-scope 2 years ago and normal endoscopy within 5 years.) -GELY (Trending BMP, monitor UOP. If worsens consult nephro. Baseline 1-2) -Hx PE (04/2019-holding AC) -HTN (Hold benicar if hypotensive) -HLD (OP FLP, c/w statin) -S/P TAVR (consult CV if holding AC prolonged) -PAD s/p stenting (b/l iliac; holding plavix) -Stage IV Lung CA w/ mets to the spine -Hx GERD (Famotidine at home; PPI here can change back once off drip) -Suspected COPD (no PFTs available; detailed on previous visits) Full Code
--- NOTE | 2019-06-13 07:58 | PN ---
Teaching Attending Note Name of Resident: Keagan Casey ATTENDING PHYSICIAN STATEMENT I saw and evaluated the patient. I reviewed the resident's note and discussed the case with the resident. I agree with the resident's findings and plan as documented. Seen and examined; please see resident note for further historical information. I personally verified all huston historical information and exam findings. Personally interpreted all imaging and diagnostics and reviewed appropriate consults. I reviewed all labs and vital signs as per resident note and EMR as documented. I agree with the above assessment and plan unless supplemented by myself in the following. 10 item review of systems completed and is negative aside from as discussed in the subjective data in my own/the resident documentation. VS, labs, imaging reviewed NAD, AAO, resting comfortably in bed. RRR s1/2 no mgr Normal muscle tone, moves all 5 extremities with normal apparent strength Neck is supple, trachea midline, no jass LN Lungs CTAB with sym expansion NT ND +BS no jass organomegaly CN2-12 wnl; no FND NC AT EOMI PERRLA Normal mood, appropriate behavior, euthymic affect No skin breakdown or rashes noted Assessment and plan: Improved admitting symptoms; d/w GI. PPI drip, holding AC, planning for EGD- appreciate expert consultation. Discussed with cardiology, patient was cleared to hold Plavix and Eliquis for now with plans to resume the Eliquis without Plavix after cleared by GI. This is for his history of segmental branch pulmonary embolism as well as his TAVR. Problem list: -Mechanical fall (PT eval pending, orthostatics negative, non-exertional with no syncopal components) -Chronic Anemia +/- Acute blood loss anemia (+FOBT, per above. On PO Iron at home; s/p normal c-scope 2 years ago and normal endoscopy within 5 years.) -GELY (Trending BMP, monitor UOP. If worsens consult nephro. 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 Full Code
[2019-06-13] MEDS: DOCUSATE SODIUM 100 MG CAPSULE (FP) PO SCH ×2 (09:12→22:08)
[2019-06-13] MEDS: FINASTERIDE 5 MG TABLET (FP) PO SCH (09:12)
[2019-06-13] MEDS: FERROUS SO4 325 MG TABLET (FP) PO SCH ×2 (09:12→17:54)
[2019-06-13] MEDS: VALSARTAN 40 MG TABLET (FP) PO SCH (09:13)
[2019-06-13] MEDS: PANTOPRAZOLE SODIUM 40 MG VIAL IVPUSH SCH ×2 (09:13→22:09)
[2019-06-13] MEDS: CLOTRIMAZOLE 1% CREAM 15 GM TUBE TP SCH ×2 (09:13→22:08)
--- NOTE | 2019-06-13 09:51 | PN.GI ---
GI Progress Note Subjective: Pt seen/examined at bedside, sitting up eating breakfast (clear liquid), no complaints currently. No bm yet today, denies melena or hematochezia. - Objective Vital Signs: Vital Signs Temperature 98.3 F 06/13/19 06:00 Pulse Rate 72 06/13/19 06:00 Respiratory Rate 18 06/13/19 06:00 Blood Pressure 131/57 L 06/13/19 06:00 O2 Sat by Pulse Oximetry (%) 98 06/12/19 21:00 Constitutional: No Distress, Calm Cardiovascular: Yes: WNL, Regular Rate and Rhythm Respiratory: Yes: WNL, Regular, CTA Bilaterally ...Palpate: Yes: Other (Abd soft, nt, nd) Labs: CBC, BMP 06/12/19 17:45 06/12/19 05:30 INR, PTT INR 1.17 (0.83-1.09) H 06/12/19 05:30 Problem List - Problems (1) Anemia Assessment/Plan: 88yo male h/o lung ca s/p radiation, aortic stenosis, TAVR, pulmonary embolus on eliquis and plavix (last dose on 06/11/19) presenting after a fall with iron deficiency anemia. No overt bleeding. Reports EGD and colonoscopy within the past 4-5 years, discussed with pts . -Continue to monitor Hb and for evidence of bleeding -Diet as tolerated -PPI daily -Continue to hold antithrombotics if no contraindication -Continue optimization from cardiac standpoint -Once cleared from cardiac standpoint, would plan for EGD to further evaluate ( prefer 5 days off plavix/3 days of eliquis) otherwise could perform tentatively Tuesday though for diagnostic purpose with understanding that therapeutic intervention would be limited -Would request primary team please also obtain prior EGD and colonoscopy reports from [facility] to confirm findings -If overt bleeding with drop in Hb please notify GI for possible more urgent intervention. Code(s): D64.9 - ANEMIA, UNSPECIFIED Qualifiers: Anemia type: iron deficiency
[2019-06-13] MEDS: TAMSULOSIN HCL 0.4 MG CAP PO SCH ×2 (10:56→22:08)
--- NOTE | 2019-06-13 11:25 | PN ---
Physical Exam: SUBJECTIVE: Patient seen and examined. Pt is currently laying in bed but unable to stand. Difficulty communicating due to hearing issues. Pt states that he uses a roller. No overnight events. No c/o. Afebrile and asymptomatic. As per nursing pt retained 1L yesterday and was straight cathed with 1L output. PT then again retained about 300, bladder scan ordered and waiting for pt to void. Denies f/c/n/v/d/sob,cp OBJECTIVE: Vital Signs Period Temp Pulse Resp BP Sys/Martin Pulse Ox Last 24 Hr 97.6 F-98.7 F 65-79 18-20 118-165/53-69 98-100 GENERAL: The patient is awake, alert, and fully oriented, in no acute distress. Elderly, cachetic EYES: PERRL, extraocular movements intact, sclera anicteric, conjunctiva clear. No ptosis. ENT: dry mucous membranes. NECK: Trachea midline, full range of motion, supple. LUNGS: Breath sounds equal, clear to auscultation bilaterally, no wheezes, no crackles HEART: Regular rate and rhythm, S1, S2 without murmur, rub or gallop. ABDOMEN: Soft, nontender, nondistended, normoactive bowel sounds, no guarding, EXTREMITIES: 2+ pulses, warm, well-perfused, no edema. NEUROLOGICAL: Cranial nerves II through XII grossly intact. PSYCH: Normal mood, normal affect. SKIN: Warm, dry, normal turgor, no rashes or lesions noted Laboratory Results - last 24 hr CBC,CMP WBC 8.7 K/mm3 (4.0-10.0) 06/12/19 17:45 RBC 3.76 M/mm3 (4.00-5.60) L 06/12/19 17:45 Hgb 9.9 GM/dL (11.7-16.9) L 06/12/19 17:45 Hct 30.7 % (35.4-49) L D 06/12/19 17:45 MCV 81.6 fl (80-96) 06/12/19 17:45 MCH 26.3 pg (25.7-33.7) 06/12/19 17:45 MCHC 32.2 g/dl (32.0-35.9) 06/12/19 17:45 RDW 18.4 % (11.9-15.9) H 06/12/19 17:45 Plt Count 210 K/MM3 (134-434) 06/12/19 17:45 MPV 10.4 fl (7.5-11.1) 06/12/19 17:45 Absolute Neuts (auto) 5.9 K/mm3 (1.5-8.0) 06/12/19 05:30 Neutrophils % 76.2 % (42.8-82.8) 06/12/19 05:30 Lymphocytes % 10.9 % (8-40) D 06/12/19 05:30 Monocytes % 9.3 % (3.8-10.2) 06/12/19 05:30 Eosinophils % 2.8 % (0-4.5) D 06/12/19 05:30 Basophils % 0.8 % (0-2.0) 06/12/19 05:30 Nucleated RBC % 0 % (0-0) 06/12/19 05:30 Retic Count 4.89 % (0.5-1.5) H D 06/11/19 20:11 Sodium 141 mmol/L (136-145) 06/12/19 05:30 Potassium 4.1 mmol/L (3.5-5.1) 06/12/19 05:30 Chloride 111 mmol/L (98-107) H 06/12/19 05:30 Carbon Dioxide 22 mmol/L (21-32) 06/12/19 05:30 Anion Gap 8 MMOL/L (8-16) 06/12/19 05:30 BUN 35.5 mg/dL (7-18) H 06/12/19 05:30 Creatinine 1.2 mg/dL (0.55-1.3) 06/12/19 05:30 Est GFR (CKD-EPI)AfAm 62.20 06/12/19 05:30 Est GFR (CKD-EPI)NonAf 53.67 06/12/19 05:30 Random Glucose 88 mg/dL (74-106) 06/12/19 05:30 Calcium 7.9 mg/dL (8.5-10.1) L 06/12/19 05:30 Magnesium 2.4 mg/dL (1.8-2.4) 06/12/19 05:30 Iron 98 ug/dL (50-175) 06/12/19 05:30 TIBC 303 ug/dL (250-450) 06/12/19 05:30 Iron Saturation 32 % (17.5-39) 06/12/19 05:30 Unsaturated IBC 205 ug/dL (200-275) 06/12/19 05:30 Transferrin 243 mg/dL (200-370) 06/11/19 20:00 Ferritin 13.9 ng/ml (8-388) 06/11/19 20:00 Total Bilirubin 1.0 mg/dL (0.2-1) 06/12/19 05:30 AST 9 U/L (15-37) L 06/12/19 05:30 ALT 12 U/L (13-61) L 06/12/19 05:30 Alkaline Phosphatase 60 U/L (45-117) 06/12/19 05:30 Creatine Kinase 44 U/L (26-308) 06/11/19 23:40 Troponin I 0.12 ng/ml (0.00-0.05) H 06/12/19 05:30 B-Natriuretic Peptide 272.5 pg/ml (5-450) 06/11/19 23:40 Total Protein 4.9 g/dl (6.4-8.2) L 06/12/19 05:30 Albumin 2.8 g/dl (3.4-5.0) L 06/12/19 05:30 Active Medications Current Medications Atorvastatin Calcium (Lipitor -) 20 mg PO HS [facility] Last Admin: 06/12/19 23:43 Dose: 20 mg Clotrimazole (Lotrimin 1% Cream -) 1 applic TP BID [facility] Last Admin: 06/13/19 09:13 Dose: 1 applic Docusate Sodium (Colace -) 100 mg PO BID [facility] Last Admin: 06/13/19 09:12 Dose: 100 mg Ferrous Sulfate (Feosol -) 325 mg PO BIDWM [facility] Last Admin: 06/13/19 09:12 Dose: 325 mg Finasteride (Proscar -) 5 mg PO DAILY [facility] Last Admin: 06/13/19 09:12 Dose: 5 mg Lactobacillus Acidophilus (Bacid -) 1 tab PO HS [facility] Last Admin: 06/12/19 23:43 Dose: 1 tab Pantoprazole Sodium (Protonix Iv) 40 mg IVPUSH BID [facility] Last Admin: 06/13/19 09:13 Dose: 40 mg Tamsulosin HCl (Flomax -) 0.4 mg PO [facility] Last Admin: 06/13/19 10:56 Dose: 0.4 mg Tizanidine HCl (Tizanidine Hcl) 2 mg PO HS [facility] Last Admin: 06/12/19 23:53 Dose: 2 mg Valsartan (Diovan -) 40 mg PO DAILY [facility] Last Admin: 06/13/19 09:13 Dose: 40 mg Home Medications Medication Instructions Recorded Lutein 10 mg PO DAILY tablet 07/26/12 Biotin 5,000 mcg PO ASDIR capsule 11/25/16 Famotidine [Pepcid] 40 mg PO BID 04/27/19 Tizanidine HCl 2 mg PO Q12H PRN 04/27/19 Atorvastatin Ca [Lipitor] 20 mg PO HS tablet 04/30/19 Clopidogrel Bisulfate [Plavix] 75 mg PO DAILY #30 tablet 04/30/19 Docusate Sodium [Colace -] 100 mg PO BID capsule 04/30/19 Olmesartan Medoxomil [Benicar] 5 mg PO DAILY #30 tablet 04/30/19 Tamsulosin HCl [Flomax -] 0.4 mg PO 829,1999 #60 cap 04/30/19 Apixaban [Eliquis] 5 mg PO BID 06/12/19 Megestrol Acetate 800 mg PO DAILY 06/12/19 Umeclidinium Brm/Vilanterol Tr 1 puff PO DAILY 06/12/19 [Anoro Ellipta 62.5-25 Mcg INH] ASSESSMENT/PLAN: 88 y/o M pmh GERD, HTN, chronic tobacco usage, 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 Elaine recom holding Plavix and Eliquis, EGD for late this week Discussed with cardio- recom holding eliquis 3 days/palvix 5 days. Continue optimization from cardiac standpoint. Will atempt to obtain records EGD/Colonoscopy from [facility]. 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 Jay- [facility]. #Hx of biliac iliac artery stents Hold Plavix secondary to possible GI bleed with anemia #Stage IV lung cancer with metastases to L-spine Treated with RT in the past, currently on Keytruda only #HLD Continue Lipitor #HTN Valsartan #DVT ppx SCDs FEN clear liquids monitor lytes Dispo: f/u CBC, monitor anemia, prep for EGD, f/u GI, f/u Cardio note Visit type - Emergency Visit Emergency Visit: Yes ED Registration Date: 06/11/19 Care time: The patient presented to the Emergency Department on the above date and was hospitalized for further evaluation of their emergent condition. - New Patient This patient is new to me today: Yes Date on this admission: 06/13/19 - Critical Care Critical Care patient: No - Discharge Referral Referred to [facility] Med P.C.: No ATTENDING PHYSICIAN STATEMENT I saw and evaluated the patient. I reviewed the resident's note and discussed the case with the resident. I agree with the resident's findings and plan as documented. SUBJECTIVE: OBJECTIVE: ASSESSMENT AND PLAN:
[2019-06-13] MEDS ORDERED: ACETAMINOPHEN 325 MG TABLET (FP) PO ONE (11:57)
--- NOTE | 2019-06-13 13:13 | CONSULT ---
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 He did have an impact to his head, by the walker, however he did not have any loss of consciousness. He reports having a poor appetite within the past week, but denies any nausea, vomiting, or weight loss. Pt does endorse feeling generalized weakness, however no numbness/tingling or focal deficits. Pt reports having dark stools, however has not had jass blood and takes oral iron pills religiously. Pt has been on oral iron supplementation for for >4 months. Upon evaluation pt has had persistent normocytic anemia with stool occult positive (? false positive) and we were asked to evaluate this patient regarding his anemia and guidance with AC. Per GI they would like to perform colonoscopy on Tuesday. Last colonoscopy 2 years prior (unknown physician) which was reportedly normal. EGD performed within 4 years also normal PMHx: As above PSHx: B/l cataracts, B/l iliac angioplasty with stenting, TAVR (04/2019) SoHx: Tobacco - Current, since 13yo, 1-2 pipes per day Alcohol - 1 glass of wine several times per week Drugs - Denies REVIEW OF SYSTEMS: As per HPI PHYSICAL EXAMINATION Vital Signs - 24 hr 06/12/19 06/12/19 06/12/19 14:00 18:00 21:00 Temperature 98 F 98.7 F Pulse Rate 65 79 Respiratory 20 20 Rate Blood Pressure 135/55 L 151/69 O2 Sat by Pulse 98 Oximetry (%) 06/12/19 06/13/19 06/13/19 22:00 06:00 09:20 Temperature 97.6 F 98.3 F 98.0 F Pulse Rate 69 72 87 Respiratory 20 18 19 Rate Blood Pressure 118/53 L 131/57 L 143/57 L O2 Sat by Pulse Oximetry (%) GENERAL: Awake, alert, and fully oriented, in no acute distress. Thin appearing. HEAD: Noted small ecchymotic region on R side of the forehead. EENT: DARCY, EOMI, sclera anicteric, dry mucous membranes, no conjunctival pallor at time of my exam NECK: No JVD. LUNGS: CTA throughout all lung aragon. No wheezes or rales. HEART: Regular rate and rhythm, normal S1, S2 oinking noted, and 2/6 systolic ejection murmur ABDOMEN: Soft, nontender, not distended, normoactive bowel sounds, no guarding, no rebound, no masses. MUSCULOSKELETAL: Slight tenderness to palpation of lumbar spine EXTREMITIES: 2+ pulses, warm, well-perfused. No calf tenderness. No peripheral edema. NEUROLOGICAL: Cranial nerves II-XII intact. 5/5 muscle strength upper and lower extremities bilaterally. Sensation intact to gross touch throughout. PSYCHIATRIC: Cooperative. Good eye contact. Appropriate mood and affect. SKIN: Warm, dry, decreased turgor, scattered ecchymoses throughout Laboratory Results - last 24 hr 06/11/19 06/12/19 06/12/19 20:00 16:00 16:00 WBC RBC Hgb Hct MCV MCH MCHC RDW Plt Count MPV Transferrin 243 Urine Color Yellow Urine Appearance Cloudy Urine pH 5.0 Ur Specific [place] 1.021 Urine Protein Negative Urine Glucose (UA) Negative Urine Ketones Negative Urine Blood Negative Urine Nitrite Negative Urine Bilirubin Negative Urine Urobilinogen 0.2 Ur Leukocyte Esterase Negative Ur Random Creatinine 113.0 Ur Random Sodium Ur Random Potassium Ur Random Chloride 06/12/19 06/12/19 17:45 19:35 WBC 8.7 RBC 3.76 L Hgb 9.9 L Hct 30.7 L D MCV 81.6 MCH 26.3 MCHC 32.2 RDW 18.4 H Plt Count 210 MPV 10.4 Transferrin Urine Color Urine Appearance Urine pH Ur Specific [place] Urine Protein Urine Glucose (UA) Urine Ketones Urine Blood Urine Nitrite Urine Bilirubin Urine Urobilinogen Ur Leukocyte Esterase Ur Random Creatinine Ur Random Sodium 59 Ur Random Potassium 60.0 Ur Random Chloride 84 L Active Medications Generic Name Dose Route Start Last Admin Trade Name Freq PRN Reason Stop Dose Admin Atorvastatin Calcium 20 mg 06/12/19 22:00 06/12/19 23:43 Lipitor - PO 20 mg HS DAVONTE Administration Clotrimazole 1 applic 06/12/19 10:00 06/13/19 09:13 Lotrimin 1% Cream - TP 1 applic BID DAVONTE Administration Docusate Sodium 100 mg 06/13/19 10:00 06/13/19 09:12 Colace - PO 100 mg BID DAVONTE Administration Ferrous Sulfate 325 mg 06/12/19 08:00 06/13/19 09:12 Feosol - PO 325 mg BIDWM DAVONTE Administration Finasteride 5 mg 06/13/19 10:00 06/13/19 09:12 Proscar - PO 5 mg DAILY DAVONTE Administration Lactobacillus Acidophilus 1 tab 06/12/19 22:00 06/12/19 23:43 Bacid - PO 1 tab HS DAVONTE Administration Pantoprazole Sodium 40 mg 06/12/19 22:00 06/13/19 09:13 Protonix Iv IVPUSH 40 mg BID DAVONTE Administration Tamsulosin HCl 0.4 mg 06/12/19 08:30 06/13/19 10:56 Flomax - PO 0.4 mg 829,1999 DAVONTE Administration Tizanidine HCl 2 mg 06/12/19 22:00 06/12/19 23:53 Tizanidine Hcl PO 2 mg HS DAVONTE Administration Valsartan 40 mg 06/12/19 10:00 06/13/19 09:13 Diovan - PO 40 mg DAILY DAVONTE Administration ASSESSMENT/PLAN: Normocytic normochromic anemia History of PE (likely provoked Lung Ca vs. sedentary lifestyle) History of iron deficiency anemia --Due to acute cardiac issues with most recent being TAVR (04/2019) will need cardiology input for AP therapy prior to procedure --Will default to their judgment in this matter --Monitor CBC --Would have transfusion threshold >8gm due to cardiac issues --Will continue to follow peripherally DO John Vigil PGY-3 Visit type - Emergency Visit Emergency Visit: Yes ED Registration Date: 06/11/19 Care time: The patient presented to the Emergency Department on the above date and was hospitalized for further evaluation of their emergent condition. - New Patient This patient is new to me today: No - Critical Care Critical Care patient: No ATTENDING PHYSICIAN STATEMENT I saw and evaluated the patient. I reviewed the resident's note and discussed the case with the resident. I agree with the resident's findings and plan as documented. SUBJECTIVE: OBJECTIVE: ASSESSMENT AND PLAN:
[2019-06-13 13:15] LABS: BASO % 0.5 % (0-2.0); EOS % 0.9 % (0-4.5); HEMATOCRIT 31.3 % (35.4-49); HEMOGLOBIN 10.2 GM/dL (11.7-16.9); LYMPH % 5.2 % (8-40); MCH 26.8 pg (25.7-33.7); MCHC 32.5 g/dl (32.0-35.9); MEAN CELL VOLUME 82.4 fl (80-96); MEAN PLT VOLUME 9.6 fl (7.5-11.1); MONO % 0.8 % (3.8-10.2); NEUT % 92.6 % (42.8-82.8); PLATELET COUNT 205 K/MM3 (134-434); WHITE BLOOD COUNT 5.8 K/mm3 (4.0-10.0)
[2019-06-13 13:45] LABS: PLATELET ESTIMATE ADEQUATE
--- NOTE | 2019-06-13 14:45 | CON.CARD ---
Cardiology Consult (text) - Consultation Consultation Note: Chief Complaint: weakness, salgado, fall History of Present Illness: 88 M with weakness, salgado, fall. Past week with mild salgado and general weakness. Tripped using walker at home, no loc or prodrome sxs. No cp palps dizzy loc pnd orthopnea le edema. Found to have anemia here. Sees dr patel for cardio. PMH: CKD PAD s/p LE intervention remotely HTN HPL colitis tavr pe - Alcohol/Substance Use Hx Alcohol Use: No - Smoking History Smoking history: Current every day smoker Have you smoked in the past 12 months: Yes Home Medications - Allergies Allergies/Adverse Reactions: Allergies Allergy/AdvReac Type Severity Reaction Status Date / Time No Known Allergies Allergy Unverified 06/11/19 19:55 Ambulatory Orders Lutein 10 mg PO DAILY tablet 07/26/12 Biotin 5,000 mcg PO ASDIR capsule 11/25/16 Famotidine [Pepcid] 40 mg PO BID 04/27/19 Tizanidine HCl 2 mg PO Q12H PRN 04/27/19 Atorvastatin Ca [Lipitor] 20 mg PO HS tablet 04/30/19 Clopidogrel Bisulfate [Plavix] 75 mg PO DAILY #30 tablet 04/30/19 Docusate Sodium [Colace -] 100 mg PO BID capsule 04/30/19 Olmesartan Medoxomil [Benicar] 5 mg PO DAILY #30 tablet 04/30/19 Tamsulosin HCl [Flomax -] 0.4 mg PO #60 cap 04/30/19 Apixaban [Eliquis] 5 mg PO BID 06/12/19 Megestrol Acetate 800 mg PO DAILY 06/12/19 Umeclidinium Brm/Vilanterol Tr [Anoro Ellipta 62.5-25 Mcg INH] 1 puff PO DAILY 06/12/19 Family Medical History Family History: Denies (no known cmp) Review of Systems - Review of Systems Constitutional: denies: Chills, Fever Eyes: denies: Eye Pain HENT: denies: Nasal Congestion Neck: denies: Stiffness Cardiovascular: denies: Palpitations Respiratory: denies: Orthopnea, PND Gastrointestinal: denies: Diarrhea, Rectal Bleeding Genitourinary: denies: Burning, Hematuria Musculoskeletal: denies: Muscle Pain Integumentary: denies: Rash Neurological: denies: Numbness, Seizure, Syncope Endocrine: denies: Excessive Sweating Hematology/Lymphatic: denies: Excessive Bleeding Vital Signs: Vital Signs Period Temp Pulse Resp BP Sys/Martin Pulse Ox Last 24 Hr 97.6 F-98.7 F 69-87 18-20 118-151/53-69 98 Constitutional: Yes: Well Nourished, No Distress Eyes: No: Sclera Icterus HENT: No: Nasal Congestion Neck: No: Decreased ROM Respiratory: Yes: CTA Bilaterally. No: Accessory Muscle Use, Rales, Wheezes Gastrointestinal: Yes: Normal Bowel Sounds, Tenderness No: Distention, Hepatomegaly, Palpable Mass Cardiovascular: Yes: Regular Rate and Rhythm JVD: No Carotid Bruit: No PMI: Non-Displaced Heart Sounds: Yes: S1, S2. No: Gallop Murmur: No: Systolic Murmur, Diastolic Murmur Extremities: No: Cool, Cyanosis Edema: No Peripheral Pulses: 2+ Left Carotid, 2+ Right Carotid, 2+ Left Doralis Pedis, 2+ Right Dorsalis Pedis Integumentary: No: Jaundice diaphoresis Neurological: Yes: Alert, Oriented (x3) Psychiatric: No: Agitated - Other Data Labs, Other Data: Laboratory Last Values WBC 5.8 K/mm3 (4.0-10.0) 06/13/19 12:16 RBC 3.80 M/mm3 (4.00-5.60) L 06/13/19 12:16 Hgb 10.2 GM/dL (11.7-16.9) L 06/13/19 12:16 Hct 31.3 % (35.4-49) L 06/13/19 12:16 MCV 82.4 fl (80-96) 06/13/19 12:16 MCH 26.8 pg (25.7-33.7) 06/13/19 12:16 MCHC 32.5 g/dl (32.0-35.9) 06/13/19 12:16 RDW 19.0 % (11.9-15.9) H 06/13/19 12:16 Plt Count 205 K/MM3 (134-434) 06/13/19 12:16 MPV 9.6 fl (7.5-11.1) 06/13/19 12:16 Absolute Neuts (auto) 5.4 K/mm3 (1.5-8.0) 06/13/19 12:16 Neutrophils % 92.6 % (42.8-82.8) H D 06/13/19 12:16 Neutrophils % (Manual) 77.0 % (42.8-82.8) 06/13/19 12:16 Band Neutrophils % 15.0 % 06/13/19 12:16 Lymphocytes % 5.2 % (8-40) L D 06/13/19 12:16 Lymphocytes % (Manual) 7.0 % (8-40) L D 06/13/19 12:16 Monocytes % 0.8 % (3.8-10.2) L D 06/13/19 12:16 Monocytes % (Manual) 0 % (3.8-10.2) L D 06/13/19 12:16 Eosinophils % 0.9 % (0-4.5) 06/13/19 12:16 Eosinophils % (Manual) 1.0 % (0-4.5) D 06/13/19 12:16 Basophils % 0.5 % (0-2.0) 06/13/19 12:16 Basophils % (Manual) 0.0 % (0-2.0) 06/13/19 12:16 Nucleated RBC % 0 % (0-0) 06/13/19 12:16 Platelet Estimate Adequate 06/13/19 12:16 Retic Count 4.89 % (0.5-1.5) H D 06/11/19 20:11 PT with INR 13.80 SEC (9.7-13.0) H 06/12/19 05:30 INR 1.17 (0.83-1.09) H 06/12/19 05:30 PTT (Actin FS) 28.3 SECONDS (25.2-36.5) 06/12/19 05:30 Sodium 141 mmol/L (136-145) 06/12/19 05:30 Potassium 4.1 mmol/L (3.5-5.1) 06/12/19 05:30 Chloride 111 mmol/L (98-107) H 06/12/19 05:30 Carbon Dioxide 22 mmol/L (21-32) 06/12/19 05:30 Anion Gap 8 MMOL/L (8-16) 06/12/19 05:30 BUN 35.5 mg/dL (7-18) H 06/12/19 05:30 Creatinine 1.2 mg/dL (0.55-1.3) 06/12/19 05:30 Est GFR (CKD-EPI)AfAm 62.20 06/12/19 05:30 Est GFR (CKD-EPI)NonAf 53.67 06/12/19 05:30 Random Glucose 88 mg/dL (74-106) 06/12/19 05:30 Calcium 7.9 mg/dL (8.5-10.1) L 06/12/19 05:30 Magnesium 2.4 mg/dL (1.8-2.4) 06/12/19 05:30 Iron 98 ug/dL (50-175) 06/12/19 05:30 TIBC 303 ug/dL (250-450) 06/12/19 05:30 Iron Saturation 32 % (17.5-39) 06/12/19 05:30 Unsaturated IBC 205 ug/dL (200-275) 06/12/19 05:30 Transferrin 243 mg/dL (200-370) 06/11/19 20:00 Ferritin 13.9 ng/ml (8-388) 06/11/19 20:00 Total Bilirubin 1.0 mg/dL (0.2-1) 06/12/19 05:30 AST 9 U/L (15-37) L 06/12/19 05:30 ALT 12 U/L (13-61) L 06/12/19 05:30 Alkaline Phosphatase 60 U/L (45-117) 06/12/19 05:30 Creatine Kinase 44 U/L (26-308) 06/11/19 23:40 Troponin I 0.12 ng/ml (0.00-0.05) H 06/12/19 05:30 B-Natriuretic Peptide 272.5 pg/ml (5-450) 06/11/19 23:40 Total Protein 4.9 g/dl (6.4-8.2) L 06/12/19 05:30 Albumin 2.8 g/dl (3.4-5.0) L 06/12/19 05:30 Urine Color Yellow 06/12/19 16:00 Urine Appearance Cloudy 06/12/19 16:00 Urine pH 5.0 (5.0-8.0) 06/12/19 16:00 Ur Specific [place] 1.021 (1.010-1.035) 06/12/19 16:00 Urine Protein Negative (NEGATIVE) 06/12/19 16:00 Urine Glucose (UA) Negative (NEGATIVE) 06/12/19 16:00 Urine Ketones Negative (NEGATIVE) 06/12/19 16:00 Urine Blood Negative (NEGATIVE) 06/12/19 16:00 Urine Nitrite Negative (NEGATIVE) 06/12/19 16:00 Urine Bilirubin Negative (NEGATIVE) 06/12/19 16:00 Urine Urobilinogen 0.2 mg/dL (0.2-1.0) 06/12/19 16:00 Ur Leukocyte Esterase Negative (NEGATIVE) 06/12/19 16:00 Ur Random Creatinine 113.0 mg/dL (30-150) 06/12/19 16:00 Ur Random Sodium 59 MMOL/L (40-220) 06/12/19 19:35 Ur Random Potassium 60.0 MMOL/L (25-125) 06/12/19 19:35 Ur Random Chloride 84 MMOL/L (110-250) L 06/12/19 19:35 Stool Occult Blood Positive (NEGATIVE) 06/11/19 23:04 Blood Type A POSITIVE 06/11/19 23:00 Antibody Screen Negative 06/11/19 23:00 Crossmatch See Detail 06/11/19 23:00 Echo 04/27/19: nl LVEF. nl RV. trace AI s/p TAVR. no pulm HTN ECG: sr nl intervals no ischemic changes cxr: clear lungs Assessment/Plan anemia: -here with symptomatic anemia -holding plavix and eliquis -plans per GI, no cardiac contraindications to egd or colonoscopy hx of PE (segmental branch): -no RV enlargement/hypo -provoked by lung malignancy and prolonged sedentary status -has been on eliquis, holding now due to severe anemia s/p TAVR: -normal valve fxn on echo -d/w structural valve team about current anemia admit and per tavr team it is ok to hold plavix and eliquis for now with plans to resume eliquis WITHOUT plavix after cleared by GI HTN: -stable, cont home meds CKD: -cr stable here lung cancer: -per onc ([facility]) elevated trop: -borderline trop elevation with flat trend and no ecg changes, not c/w acs
[2019-06-13 15:51] LABS: BASO % 0.2 % (0-2.0); EOS % 0.2 % (0-4.5); HEMATOCRIT 28.4 % (35.4-49); HEMOGLOBIN 9.3 GM/dL (11.7-16.9); LYMPH % 0.9 % (8-40); MCH 26.6 pg (25.7-33.7); MCHC 32.6 g/dl (32.0-35.9); MEAN CELL VOLUME 81.5 fl (80-96); MEAN PLT VOLUME 9.9 fl (7.5-11.1); MONO % 2.1 % (3.8-10.2); NEUT % 96.6 % (42.8-82.8); PLATELET COUNT 178 K/MM3 (134-434); RBC 3.48 M/mm3 (4.00-5.60); RDW 18.3 % (11.9-15.9); WHITE BLOOD COUNT 12.3 K/mm3 (4.0-10.0)
[2019-06-13] MEDS ORDERED: ACETAMINOPHEN 325 MG TABLET (FP) PO PRN (16:18)
[2019-06-13 17:20] LABS: ANISOCYTOSIS 1+
[2019-06-13 17:22] LABS: PLATELET ESTIMATE ADEQUATE
[2019-06-13] MEDS ORDERED: PT OWN MED DRAWER 7, Y5N ONE (21:38)
[2019-06-13] MEDS: ATORVASTATIN CA 20 MG TABLET (FP) PO SCH (22:08)
[2019-06-13] MEDS: LACTOBACILLUS ACIDOPHILUS 1 TABLET PO SCH (22:08)
[2019-06-13] MEDS: TIZANIDINE HCL 2 MG TABLET PO SCH (22:09)
[2019-06-14 08:26] LABS: HEMATOCRIT 27.1 % (35.4-49); HEMOGLOBIN 8.8 GM/dL (11.7-16.9); MCH 26.6 pg (25.7-33.7); MCHC 32.5 g/dl (32.0-35.9); MEAN CELL VOLUME 81.8 fl (80-96); MEAN PLT VOLUME 9.5 fl (7.5-11.1); PLATELET COUNT 141 K/MM3 (134-434); RBC 3.31 M/mm3 (4.00-5.60); RDW 19.1 % (11.9-15.9); WHITE BLOOD COUNT 7.2 K/mm3 (4.0-10.0)
[2019-06-14 08:54] LABS: ALBUMIN 2.5 g/dl (3.4-5.0); BILIRUBIN,TOTAL 1.1 mg/dL (0.2-1); BLOOD UREA NITROGEN 22.3 mg/dL (7-18); CREATININE 1.2 mg/dL (0.55-1.3); POTASSIUM 3.8 mmol/L (3.5-5.1); TOT PROT 4.5 g/dl (6.4-8.2)
[2019-06-14] MEDS: FINASTERIDE 5 MG TABLET (FP) PO SCH (09:20)
[2019-06-14] MEDS: DOCUSATE SODIUM 100 MG CAPSULE (FP) PO SCH ×2 (09:20→22:20)
[2019-06-14] MEDS: FERROUS SO4 325 MG TABLET (FP) PO SCH ×2 (09:21→18:30)
[2019-06-14] MEDS: CLOTRIMAZOLE 1% CREAM 15 GM TUBE TP SCH ×2 (09:21→22:20)
[2019-06-14] MEDS: TAMSULOSIN HCL 0.4 MG CAP PO SCH ×2 (09:21→22:23)
[2019-06-14] MEDS: VALSARTAN 40 MG TABLET (FP) PO SCH (09:21)
[2019-06-14] MEDS: PANTOPRAZOLE SODIUM 40 MG VIAL IVPUSH SCH ×2 (09:21→22:20)
[2019-06-14] MEDS ORDERED: DOCUSATE SODIUM 100 MG CAPSULE (FP) PO ONE ×2 (11:45)
--- NOTE | 2019-06-14 12:20 | PN ---
Physical Exam: SUBJECTIVE: Patient seen and examined. Pt is currently laying in bed but unable to stand. Hearing aid in. at bedside. Pt states that he uses a roller. No overnight events. No c/o. Afebrile and asymptomatic. As per nursing pt voided yesterday afternoon. No BM yet. Denies f/c/n/v/d/sob,cp OBJECTIVE: Vital Signs Period Temp Pulse Resp BP Sys/Martin Pulse Ox Last 24 Hr 97.6 F-98.6 F 84-95 16-19 106-157/48-86 97 GENERAL: The patient is awake, alert, and fully oriented, in no acute distress. Elderly, cachetic EYES: PERRL, extraocular movements intact, sclera anicteric, conjunctiva clear. No ptosis. ENT: dry mucous membranes. NECK: Trachea midline, full range of motion, supple. LUNGS: Breath sounds equal, clear to auscultation bilaterally, no wheezes, no crackles HEART: Regular rate and rhythm, S1, S2 without murmur, rub or gallop. ABDOMEN: Soft, nontender, nondistended, normoactive bowel sounds, no guarding, EXTREMITIES: 2+ pulses, warm, well-perfused, no edema. NEUROLOGICAL: Cranial nerves II through XII grossly intact. PSYCH: Normal mood, normal affect. SKIN: Warm, dry, normal turgor, no rashes or lesions noted Laboratory Results - last 24 hr CBC,CMP WBC 7.2 K/mm3 (4.0-10.0) 06/14/19 07:58 RBC 3.31 M/mm3 (4.00-5.60) L 06/14/19 07:58 Hgb 8.8 GM/dL (11.7-16.9) L 06/14/19 07:58 Hct 27.1 % (35.4-49) L 06/14/19 07:58 MCV 81.8 fl (80-96) 06/14/19 07:58 MCH 26.6 pg (25.7-33.7) 06/14/19 07:58 MCHC 32.5 g/dl (32.0-35.9) 06/14/19 07:58 RDW 19.1 % (11.9-15.9) H 06/14/19 07:58 Plt Count 141 K/MM3 (134-434) D 06/14/19 07:58 MPV 9.5 fl (7.5-11.1) 06/14/19 07:58 Absolute Neuts (auto) 11.9 K/mm3 (1.5-8.0) H 06/13/19 14:50 Total Counted 100 06/13/19 14:50 Neutrophils % 96.6 % (42.8-82.8) H 06/13/19 14:50 Neutrophils % (Manual) 90.0 % (42.8-82.8) H 06/13/19 14:50 Band Neutrophils % 4.0 % 06/13/19 14:50 Lymphocytes % 0.9 % (8-40) L 06/13/19 14:50 Lymphocytes % (Manual) 3.0 % (8-40) L D 06/13/19 14:50 Monocytes % 2.1 % (3.8-10.2) L D 06/13/19 14:50 Monocytes % (Manual) 3 % (3.8-10.2) L D 06/13/19 14:50 Eosinophils % 0.2 % (0-4.5) 06/13/19 14:50 Eosinophils % (Manual) 1.0 % (0-4.5) D 06/13/19 12:16 Basophils % 0.2 % (0-2.0) 06/13/19 14:50 Basophils % (Manual) 0.0 % (0-2.0) 06/13/19 12:16 Nucleated RBC % 0 % (0-0) 06/13/19 14:50 Hypochromia 1+ 06/13/19 14:50 Platelet Estimate Adequate 06/13/19 14:50 Platelet Comment No clumping noted 06/13/19 14:50 Polychromasia 1+ 06/13/19 14:50 Anisocytosis 1+ 06/13/19 14:50 Microcytosis 1+ 06/13/19 14:50 Retic Count 4.89 % (0.5-1.5) H D 06/11/19 20:11 Sodium 141 mmol/L (136-145) 06/14/19 07:58 Potassium 3.8 mmol/L (3.5-5.1) 06/14/19 07:58 Chloride 113 mmol/L (98-107) H 06/14/19 07:58 Carbon Dioxide 21 mmol/L (21-32) 06/14/19 07:58 Anion Gap 7 MMOL/L (8-16) L 06/14/19 07:58 BUN 22.3 mg/dL (7-18) H 06/14/19 07:58 Creatinine 1.2 mg/dL (0.55-1.3) 06/14/19 07:58 Est GFR (CKD-EPI)AfAm 62.20 06/14/19 07:58 Est GFR (CKD-EPI)NonAf 53.67 06/14/19 07:58 Random Glucose 106 mg/dL (74-106) 06/14/19 07:58 Calcium 8.0 mg/dL (8.5-10.1) L 06/14/19 07:58 Magnesium 2.4 mg/dL (1.8-2.4) 06/12/19 05:30 Iron 98 ug/dL (50-175) 06/12/19 05:30 TIBC 303 ug/dL (250-450) 06/12/19 05:30 Iron Saturation 32 % (17.5-39) 06/12/19 05:30 Unsaturated IBC 205 ug/dL (200-275) 06/12/19 05:30 Transferrin 243 mg/dL (200-370) 06/11/19 20:00 Ferritin 13.9 ng/ml (8-388) 06/11/19 20:00 Total Bilirubin 1.1 mg/dL (0.2-1) H 06/14/19 07:58 AST 12 U/L (15-37) L 06/14/19 07:58 ALT 13 U/L (13-61) 06/14/19 07:58 Alkaline Phosphatase 64 U/L (45-117) 06/14/19 07:58 LD Total 246 U/L (87-246) 06/14/19 07:58 Creatine Kinase 44 U/L (26-308) 06/11/19 23:40 Troponin I 0.12 ng/ml (0.00-0.05) H 06/12/19 05:30 B-Natriuretic Peptide 272.5 pg/ml (5-450) 06/11/19 23:40 Total Protein 4.5 g/dl (6.4-8.2) L 06/14/19 07:58 Albumin 2.5 g/dl (3.4-5.0) L 06/14/19 07:58 Active Medications Generic Name Dose Route Start Last Admin Trade Name Freq PRN Reason Stop Dose Admin Acetaminophen 650 mg 06/13/19 16:07 Tylenol - PO Q6H PRN PAIN LEVEL 6-10 Atorvastatin Calcium 20 mg 06/12/19 22:00 06/13/19 22:08 Lipitor - PO 20 mg HS DAVONTE Administration Bisacodyl 10 mg 06/14/19 12:11 Dulcolax Suppository - CO 06/14/19 12:12 ONCE ONE Clotrimazole 1 applic 06/12/19 10:00 06/14/19 09:21 Lotrimin 1% Cream - TP 1 applic BID DAVONTE Administration Docusate Sodium 100 mg 06/13/19 10:00 06/14/19 09:20 Colace - PO 100 mg BID DAVONTE Administration Ferrous Sulfate 325 mg 06/12/19 08:00 06/14/19 09:21 Feosol - PO 325 mg BIDWM DAVONTE Administration Finasteride 5 mg 06/13/19 10:00 06/14/19 09:20 Proscar - PO 5 mg DAILY DAVONTE Administration Lactobacillus Acidophilus 1 tab 06/12/19 22:00 06/13/19 22:08 Bacid - PO 1 tab HS DAVONTE Administration Pantoprazole Sodium 40 mg 06/12/19 22:00 06/14/19 09:21 Protonix Iv IVPUSH 40 mg BID DAVONTE Administration Tamsulosin HCl 0.4 mg 06/12/19 08:30 06/14/19 09:21 Flomax - PO 0.4 mg 0830,2000 DAVONTE Administration Tizanidine HCl 2 mg 06/12/19 22:00 06/13/19 22:09 Tizanidine Hcl PO 2 mg HS DAVONTE Administration Valsartan 40 mg 06/12/19 10:00 06/14/19 09:21 Diovan - PO 40 mg DAILY DAVONTE Administration ASSESSMENT/PLAN: 88 y/o M pmh GERD, HTN, chronic tobacco usage, Lung Ca(Stage IV w/ mets to L- spine, Aortic Stenosis s/p TAVR, pulmonary embolism (on Eliquis), difficulty hearing, BPH admitted for fall on Eliquis and anemia to Hb 7.3 #s/p Fall likely 2/2 to mechanical fall, head trauma, no LOC cont PT #R/o GI bleed Hb at 8.8 from 9.3 r/p CBC ordered for 6pm As per Dr. Elaine recom holding Plavix and Eliquis, EGD likely tomorrow cardio- recom holding eliquis 3 days/palvix 5 days. Continue optimization from cardiac standpoint. As per Cardio recom after discussion with pts structural drip molder- Upon discharge cont Eliquis and stop Plavix Colonoscopy records obtained from [facility] If overt bleeding w/ drop in Hb- GI for urgent intervention Protonix 40 #GELY US renal/bladder: b/l ureteral jets # s/p TAVR Hold plavix and eliquis His drip molder Dr. Jay- formerly [facility]. #Hx of biliac iliac artery stents Hold Plavix secondary to possible GI bleed with anemia #Stage IV lung cancer with metastases to L-spine Treated with RT in the past, currently on Keytruda only #HLD Continue Lipitor #HTN Valsartan #DVT ppx SCDs FEN clear liquids monitor lytes Dispo: f/u CBC at 6pm, monitor anemia, prep for EGD Visit type - Emergency Visit Emergency Visit: Yes ED Registration Date: 06/11/19 Care time: The patient presented to the Emergency Department on the above date and was hospitalized for further evaluation of their emergent condition. - New Patient This patient is new to me today: Yes Date on this admission: 06/15/19 - Critical Care Critical Care patient: No - Discharge Referral Referred to [facility] Med P.C.: No ATTENDING PHYSICIAN STATEMENT I saw and evaluated the patient. I reviewed the resident's note and discussed the case with the resident. I agree with the resident's findings and plan as documented. SUBJECTIVE: OBJECTIVE: ASSESSMENT AND PLAN:
--- NOTE | 2019-06-14 12:22 | PN ---
Teaching Attending Note Name of Resident: Keagan Casey ATTENDING PHYSICIAN STATEMENT I saw and evaluated the patient. I reviewed the resident's note and discussed the case with the resident. I agree with the resident's findings and plan as documented. Seen and examined; please see resident note for further historical information. I personally verified all huston historical information and exam findings. Personally interpreted all imaging and diagnostics and reviewed appropriate consults. I reviewed all labs and vital signs as per resident note and EMR as documented. I agree with the above assessment and plan unless supplemented by myself in the following. No further bleeding or bowel movement noted. Consulting cardiology for further guidance regarding the anticoagulation. Patient is indicated is seeing Dr. tobias as an outpatient. Update: The patient is indicated is being able to resume Eliquis without Plavix after being cleared by gastroenterology. 10 item review of systems completed and is negative aside from as discussed in the subjective data in my own/the resident documentation. VS, labs, imaging reviewed NAD, AAO, resting comfortably in bed. RRR s1/2 no mgr Normal muscle tone, moves all 5 extremities with normal apparent strength Neck is supple, trachea midline, no jass LN Lungs CTAB with sym expansion NT ND +BS no jass organomegaly CN2-12 wnl; no FND NC AT EOMI PERRLA Normal mood, appropriate behavior, euthymic affect No skin breakdown or rashes noted Assessment and plan: Patient remains any inpatient on the medicine service. We are planning for EGD. Cardiology has been consulted and states that the patient may proceed with the procedure and that they will may be resumed on Eliquis without Plavix following this in terms of their need for anticoagulation. Problems includeL -Mechanical fall (PT eval pending, orthostatics negative, non-exertional with no syncopal components) -Chronic Anemia +/- Acute blood loss anemia (+FOBT, per above. On PO Iron at home; s/p normal c-scope 2 years ago and normal endoscopy within 5 years.) -GELY (Trending BMP, monitor UOP. If worsens consult nephro. 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 Disposition is pending evaluation GI diagnostics and PT clearance
--- NOTE | 2019-06-14 12:22 | PN ---
Teaching Attending Note Name of Resident: Keagan Casey ATTENDING PHYSICIAN STATEMENT I saw and evaluated the patient. I reviewed the resident's note and discussed the case with the resident. I agree with the resident's findings and plan as documented. Seen and examined; please see resident note for further historical information. I personally verified all huston historical information and exam findings. Personally interpreted all imaging and diagnostics and reviewed appropriate consults. I reviewed all labs and vital signs as per resident note and EMR as documented. I agree with the above assessment and plan unless supplemented by myself in the following. Patient complains of constipation has had not had a bowel movement in several days, given Dulcolax suppository. Speaking with gastroenterology regarding when we can go ahead and told him the procedure scheduled 10 item review of systems completed and is negative aside from as discussed in the subjective data in my own/the resident documentation. VS, labs, imaging reviewed NAD, AAO, resting comfortably in bed. RRR s1/2 no mgr Normal muscle tone, moves all 5 extremities with normal apparent strength Neck is supple, trachea midline, no jass LN Lungs CTAB with sym expansion NT ND +BS no jass organomegaly CN2-12 wnl; no FND NC AT EOMI PERRLA Normal mood, appropriate behavior, euthymic affect No skin breakdown or rashes noted Assessment and plan: Patient remains any inpatient on the medicine service. We are planning for EGD. Cardiology has been consulted and states that the patient may proceed with the procedure and that they will may be resumed on Eliquis without Plavix following this in terms of their need for anticoagulation. Speaking with their service to delineate scheduling. Problems includeL -Mechanical fall (PT eval pending, orthostatics negative, non-exertional with no syncopal components) -Chronic Anemia +/- Acute blood loss anemia (+FOBT, per above. On PO Iron at home; s/p normal c-scope 2 years ago and normal endoscopy within 5 years.) -GELY (Trending BMP, monitor UOP. If worsens consult nephro. 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 Disposition is pending evaluation GI diagnostics and PT clearance
[2019-06-14] MEDS ORDERED: BISACODYL 10 MG SUPP.RECT RC ONE (12:30)
[2019-06-14] MEDS: ACETAMINOPHEN 325 MG TABLET (FP) PO PRN (14:11)
--- NOTE | 2019-06-14 15:31 | PN ---
Progress Note (short form) - Note Progress Note: s: no chest pain, palps, dizziness, dyspnea Vital Signs Period Temp Pulse Resp BP Sys/Martin Pulse Ox Last 24 Hr 98.2 F-98.6 F 84-95 16-19 106-157/48-86 97 Constitutional: Yes: Well Nourished, No Distress Eyes: No: Sclera Icterus HENT: No: Nasal Congestion Neck: No: Decreased ROM Respiratory: Yes: CTA Bilaterally. No: Accessory Muscle Use, Rales, Wheezes Gastrointestinal: Yes: Normal Bowel Sounds, Tenderness No: Distention, Hepatomegaly, Palpable Mass Cardiovascular: Yes: Regular Rate and Rhythm JVD: No Carotid Bruit: No PMI: Non-Displaced Heart Sounds: Yes: S1, S2. No: Gallop Murmur: No: Systolic Murmur, Diastolic Murmur Extremities: No: Cool, Cyanosis Edema: No Peripheral Pulses: 2+ Left Carotid, 2+ Right Carotid, 2+ Left Doralis Pedis, 2+ Right Dorsalis Pedis Integumentary: No: Jaundice diaphoresis Neurological: Yes: Alert, Oriented (x3) Psychiatric: No: Agitated Echo 04/27/19: nl LVEF. nl RV. trace AI s/p TAVR. no pulm HTN ECG: sr nl intervals no ischemic changes cxr: clear lungs Assessment/Plan anemia: -here with symptomatic anemia - monitor H/H, transfuse per primary -holding plavix and eliquis -manage per GI -no cardiac contraindications to egd or colonoscopy hx of PE (segmental branch): -no RV enlargement/hypo -provoked by lung malignancy and prolonged sedentary status -has been on eliquis, holding now due to severe anemia s/p TAVR: -normal valve fxn on echo -d/w structural valve team about current anemia admit and per tavr team it is ok to hold plavix and eliquis for now with plans to resume eliquis WITHOUT plavix after cleared by GI HTN: -stable, cont home meds CKD: -cr stable here lung cancer: -per onc ([facility]) elevated trop: -borderline trop elevation with flat trend and no ecg changes, not c/w acs
[2019-06-14 20:36] LABS: HEMATOCRIT 27.3 % (35.4-49); HEMOGLOBIN 8.8 GM/dL (11.7-16.9); MCH 26.5 pg (25.7-33.7); MCHC 32.4 g/dl (32.0-35.9); MEAN CELL VOLUME 81.8 fl (80-96); MEAN PLT VOLUME 9.9 fl (7.5-11.1); PLATELET COUNT 144 K/MM3 (134-434); RBC 3.34 M/mm3 (4.00-5.60); RDW 19.5 % (11.9-15.9); WHITE BLOOD COUNT 5.8 K/mm3 (4.0-10.0)
[2019-06-14] MEDS ORDERED: PT OWN MED DRAWER 7, Y5N ONE (22:14)
[2019-06-14] MEDS: LACTOBACILLUS ACIDOPHILUS 1 TABLET PO SCH (22:21)
[2019-06-14] MEDS: TIZANIDINE HCL 2 MG TABLET PO SCH (22:21)
[2019-06-14] MEDS: ATORVASTATIN CA 20 MG TABLET (FP) PO SCH (22:21)
--- NOTE | 2019-06-15 07:10 | PN ---
Physical Exam: SUBJECTIVE: Patient seen and examined. Hearing aid in. Spiked a fever overnight, blood cultures and urine culture taken. No c/o. Afebrile and asymptomatic. Denies f/c/ n/v/d/sob,cp OBJECTIVE: Vital Signs Period Temp Pulse Resp BP Sys/Martin Pulse Ox Last 24 Hr 97.9 F-100.9 F 77-105 16-18 109-167/45-86 97-100 GENERAL: The patient is awake, alert, and fully oriented, in no acute distress. Elderly, cachetic EYES: PERRL, extraocular movements intact, sclera anicteric, conjunctiva clear. No ptosis. ENT: dry mucous membranes. NECK: Trachea midline, full range of motion, supple. LUNGS: Breath sounds equal, clear to auscultation bilaterally, no wheezes, no crackles HEART: Regular rate and rhythm, S1, S2 without murmur, rub or gallop. ABDOMEN: Soft, nontender, nondistended, normoactive bowel sounds, no guarding, EXTREMITIES: 2+ pulses, warm, well-perfused, no edema. NEUROLOGICAL: Cranial nerves II through XII grossly intact. PSYCH: Normal mood, normal affect. SKIN: Warm, dry, normal turgor, no rashes or lesions noted Laboratory Results - last 24 hr CBC,CMP WBC 5.8 K/mm3 (4.0-10.0) 06/14/19 20:10 RBC 3.34 M/mm3 (4.00-5.60) L 06/14/19 20:10 Hgb 8.8 GM/dL (11.7-16.9) L 06/14/19 20:10 Hct 27.3 % (35.4-49) L 06/14/19 20:10 MCV 81.8 fl (80-96) 06/14/19 20:10 MCH 26.5 pg (25.7-33.7) 06/14/19 20:10 MCHC 32.4 g/dl (32.0-35.9) 06/14/19 20:10 RDW 19.5 % (11.9-15.9) H 06/14/19 20:10 Plt Count 144 K/MM3 (134-434) 06/14/19 20:10 MPV 9.9 fl (7.5-11.1) 06/14/19 20:10 Absolute Neuts (auto) 11.9 K/mm3 (1.5-8.0) H 06/13/19 14:50 Total Counted 100 06/13/19 14:50 Neutrophils % 96.6 % (42.8-82.8) H 06/13/19 14:50 Neutrophils % (Manual) 90.0 % (42.8-82.8) H 06/13/19 14:50 Band Neutrophils % 4.0 % 06/13/19 14:50 Lymphocytes % 0.9 % (8-40) L 06/13/19 14:50 Lymphocytes % (Manual) 3.0 % (8-40) L D 06/13/19 14:50 Monocytes % 2.1 % (3.8-10.2) L D 06/13/19 14:50 Monocytes % (Manual) 3 % (3.8-10.2) L D 06/13/19 14:50 Eosinophils % 0.2 % (0-4.5) 06/13/19 14:50 Eosinophils % (Manual) 1.0 % (0-4.5) D 06/13/19 12:16 Basophils % 0.2 % (0-2.0) 06/13/19 14:50 Basophils % (Manual) 0.0 % (0-2.0) 06/13/19 12:16 Nucleated RBC % 0 % (0-0) 06/13/19 14:50 Hypochromia 1+ 06/13/19 14:50 Platelet Estimate Adequate 06/13/19 14:50 Platelet Comment No clumping noted 06/13/19 14:50 Polychromasia 1+ 06/13/19 14:50 Anisocytosis 1+ 06/13/19 14:50 Microcytosis 1+ 06/13/19 14:50 Retic Count 4.89 % (0.5-1.5) H D 06/11/19 20:11 Sodium 141 mmol/L (136-145) 06/14/19 07:58 Potassium 3.8 mmol/L (3.5-5.1) 06/14/19 07:58 Chloride 113 mmol/L (98-107) H 06/14/19 07:58 Carbon Dioxide 21 mmol/L (21-32) 06/14/19 07:58 Anion Gap 7 MMOL/L (8-16) L 06/14/19 07:58 BUN 22.3 mg/dL (7-18) H 06/14/19 07:58 Creatinine 1.2 mg/dL (0.55-1.3) 06/14/19 07:58 Est GFR (CKD-EPI)AfAm 62.20 06/14/19 07:58 Est GFR (CKD-EPI)NonAf 53.67 06/14/19 07:58 Random Glucose 106 mg/dL (74-106) 06/14/19 07:58 Calcium 8.0 mg/dL (8.5-10.1) L 06/14/19 07:58 Magnesium 2.4 mg/dL (1.8-2.4) 06/12/19 05:30 Iron 98 ug/dL (50-175) 06/12/19 05:30 TIBC 303 ug/dL (250-450) 06/12/19 05:30 Iron Saturation 32 % (17.5-39) 06/12/19 05:30 Unsaturated IBC 205 ug/dL (200-275) 06/12/19 05:30 Transferrin 243 mg/dL (200-370) 06/11/19 20:00 Ferritin 13.9 ng/ml (8-388) 06/11/19 20:00 Total Bilirubin 1.1 mg/dL (0.2-1) H 06/14/19 07:58 AST 12 U/L (15-37) L 06/14/19 07:58 ALT 13 U/L (13-61) 06/14/19 07:58 Alkaline Phosphatase 64 U/L (45-117) 06/14/19 07:58 LD Total 246 U/L (87-246) 06/14/19 07:58 Creatine Kinase 44 U/L (26-308) 06/11/19 23:40 Troponin I 0.12 ng/ml (0.00-0.05) H 06/12/19 05:30 B-Natriuretic Peptide 272.5 pg/ml (5-450) 06/11/19 23:40 Total Protein 4.5 g/dl (6.4-8.2) L 06/14/19 07:58 Albumin 2.5 g/dl (3.4-5.0) L 06/14/19 07:58 Active Medications Current Medications Acetaminophen (Tylenol -) 650 mg PO Q6H PRN PRN Reason: PAIN LEVEL 6-10 Last Admin: 06/14/19 14:11 Dose: 650 mg Atorvastatin Calcium (Lipitor -) 20 mg PO HS [facility] Last Admin: 06/14/19 22:21 Dose: 20 mg Clotrimazole (Lotrimin 1% Cream -) 1 applic TP BID [facility] Last Admin: 06/14/19 22:20 Dose: 1 applic Docusate Sodium (Colace -) 100 mg PO BID [facility] Last Admin: 06/14/19 22:20 Dose: 100 mg Ferrous Sulfate (Feosol -) 325 mg PO BIDWM [facility] Last Admin: 06/14/19 18:30 Dose: 325 mg Finasteride (Proscar -) 5 mg PO DAILY [facility] Last Admin: 06/14/19 09:20 Dose: 5 mg Lactobacillus Acidophilus (Bacid -) 1 tab PO HS [facility] Last Admin: 06/14/19 22:21 Dose: 1 tab Pantoprazole Sodium (Protonix Iv) 40 mg IVPUSH BID [facility] Last Admin: 06/14/19 22:20 Dose: 40 mg Tamsulosin HCl (Flomax -) 0.4 mg PO [facility] Last Admin: 06/14/19 22:23 Dose: 0.4 mg Tizanidine HCl (Tizanidine Hcl) 2 mg PO HS [facility] Last Admin: 06/14/19 22:21 Dose: 2 mg Valsartan (Diovan -) 40 mg PO DAILY [facility] Last Admin: 06/14/19 09:21 Dose: 40 mg Home Medications Medication Instructions Recorded Biotin 5,000 mcg PO ASDIR capsule 11/25/16 Famotidine [Pepcid] 40 mg PO BID 04/27/19 Tizanidine HCl 2 mg PO Q12H PRN 04/27/19 Atorvastatin Ca [Lipitor] 20 mg PO HS tablet 04/30/19 Clopidogrel Bisulfate [Plavix] 75 mg PO DAILY #30 tablet 04/30/19 Docusate Sodium [Colace -] 100 mg PO BID capsule 04/30/19 Olmesartan Medoxomil [Benicar] 5 mg PO DAILY #30 tablet 04/30/19 Tamsulosin HCl [Flomax -] 0.4 mg PO #60 cap 04/30/19 Apixaban [Eliquis] 5 mg PO BID 06/12/19 Megestrol Acetate 800 mg PO DAILY 06/12/19 Umeclidinium Brm/Vilanterol Tr 1 puff PO DAILY 06/12/19 [Anoro Ellipta 62.5-25 Mcg INH] Microbiology 06/12/19 18:50 Urine - Urine - Catheterized Urine Culture - Final NO GROWTH OBTAINED ASSESSMENT/PLAN: 88 y/o M pmh GERD, HTN, chronic tobacco usage, Lung Ca(Stage IV w/ mets to L- spine, Aortic Stenosis s/p TAVR, pulmonary embolism (on Eliquis), difficulty hearing, BPH admitted for fall on Eliquis and anemia to Hb 7.3 #s/p Fall likely 2/2 to mechanical fall, head trauma, no LOC cont PT #R/o GI bleed Hb at 8.8 stable. CBC q12 cardio- recom holding eliquis 3 days/palvix 5 days. Continue optimization from cardiac standpoint. As per Cardio recom after discussion with pts structural it solutions sales consultant- Upon discharge cont Eliquis and stop Plavix Colonoscopy records obtained from [facility] If overt bleeding w/ drop in Hb- GI for urgent intervention Protonix 40 Planning for EGD today NPO #GELY US renal/bladder: b/l ureteral jets # s/p TAVR Hold plavix and eliquis His it solutions sales consultant Dr. Jay- [facility]. #Hx of biliac iliac artery stents Hold Plavix secondary to possible GI bleed with anemia #Stage IV lung cancer with metastases to L-spine Treated with RT in the past, currently on Keytruda only #HLD Continue Lipitor #HTN Valsartan #DVT ppx SCDs FEN NPO monitor lytes IVF at 42 Dispo: f/u CBC at 6pm, monitor anemia, prep for EGD today Visit type - Emergency Visit Emergency Visit: Yes ED Registration Date: 06/11/19 Care time: The patient presented to the Emergency Department on the above date and was hospitalized for further evaluation of their emergent condition. - New Patient This patient is new to me today: Yes Date on this admission: 06/17/19 - Critical Care Critical Care patient: No - Discharge Referral Referred to [facility] Med [facility].C[facility] No ATTENDING PHYSICIAN STATEMENT I saw and evaluated the patient. I reviewed the resident's note and discussed the case with the resident. I agree with the resident's findings and plan as documented. SUBJECTIVE: OBJECTIVE: ASSESSMENT AND PLAN:
[2019-06-15] MEDS: FERROUS SO4 325 MG TABLET (FP) PO SCH ×2 (08:00→18:18)
[2019-06-15 08:28] LABS: HEMATOCRIT 28.2 % (35.4-49); HEMOGLOBIN 9.1 GM/dL (11.7-16.9); MCH 26.7 pg (25.7-33.7); MCHC 32.2 g/dl (32.0-35.9); MEAN CELL VOLUME 83.1 fl (80-96); MEAN PLT VOLUME 10.3 fl (7.5-11.1); PLATELET COUNT 143 K/MM3 (134-434); RDW 19.7 % (11.9-15.9); WHITE BLOOD COUNT 3.6 K/mm3 (4.0-10.0)
[2019-06-15] MEDS: TAMSULOSIN HCL 0.4 MG CAP PO SCH ×2 (08:35→20:24)
[2019-06-15 09:05] LABS: ALBUMIN 2.4 g/dl (3.4-5.0); BILIRUBIN,TOTAL 0.9 mg/dL (0.2-1); BLOOD UREA NITROGEN 21.6 mg/dL (7-18); CALCIUM 7.7 mg/dL (8.5-10.1); CREATININE 1.3 mg/dL (0.55-1.3); MAGNESIUM 2.1 mg/dL (1.8-2.4); PHOSPHOROUS 3.3 mg/dL (2.5-4.9); TOT PROT 4.6 g/dl (6.4-8.2)
[2019-06-15] MEDS: SODIUM CHLORIDE 1,000 ML IV SCH (09:21)
[2019-06-15] MEDS: DOCUSATE SODIUM 100 MG CAPSULE (FP) PO SCH ×2 (09:55→21:48)
[2019-06-15] MEDS: VALSARTAN 40 MG TABLET (FP) PO SCH (09:55)
[2019-06-15] MEDS: FINASTERIDE 5 MG TABLET (FP) PO SCH (09:55)
[2019-06-15] MEDS: PANTOPRAZOLE SODIUM 40 MG VIAL IVPUSH SCH (10:21)
[2019-06-15] MEDS ORDERED: PT OWN MED DRAWER 7, Y5N ONE ×2 (11:04→21:38)
[2019-06-15] MEDS: CLOTRIMAZOLE 1% CREAM 15 GM TUBE TP SCH ×2 (12:11→21:48)
[2019-06-15] MEDS ORDERED: ETOMIDATE 20 MG/10 ML AMPUL IVPUSH ONE (13:45)
--- NOTE | 2019-06-15 14:35 | PN ---
Progress Note (short form) - Note Progress Note: EGD complete. Report left in procedural section of physical chart and will be scanned into [employer]. Please follow recommendations
[2019-06-15] MEDS: TIZANIDINE HCL 2 MG TABLET PO SCH (21:47)
[2019-06-15] MEDS: LACTOBACILLUS ACIDOPHILUS 1 TABLET PO SCH (21:48)
[2019-06-15] MEDS: ATORVASTATIN CA 20 MG TABLET (FP) PO SCH (21:48)
[2019-06-16] MEDS: SODIUM CHLORIDE 1,000 ML IV SCH (07:15)
--- NOTE | 2019-06-16 07:42 | PN ---
Teaching Attending Note Name of Resident: Neo Israel ATTENDING PHYSICIAN STATEMENT I saw and evaluated the patient. I reviewed the resident's note and discussed the case with the resident. I agree with the resident's findings and plan as documented. SUBJECTIVE: Seen by gastroenterology, EGD completed. 10 item review of systems completed and is negative aside from as discussed in the subjective data in my own/the resident documentation. OBJECTIVE: VS, labs, imaging reviewed NAD, AAO, resting comfortably in bed. RRR s1/2 no mgr Normal muscle tone, moves all 5 extremities with normal apparent strength Neck is supple, trachea midline, no jass LN Lungs CTAB with sym expansion NT ND +BS no jass organomegaly CN2-12 wnl; no FND NC AT EOMI PERRLA Normal mood, appropriate behavior, euthymic affect No skin breakdown or rashes noted ASSESSMENT AND PLAN: Seen and examined, pending EGD report which is pending. Patient is a medically stable and afebrile and likely can be discharged on her home anticoagulation without Plavix. Given his status post TAVR history. Discussed with cardiology. -Mechanical fall (PT eval pending, orthostatics negative, non-exertional with no syncopal components) -Chronic Anemia +/- Acute blood loss anemia (+FOBT, per above. On PO Iron at home; s/p normal c-scope 2 years ago and normal endoscopy within 5 years.) -GELY (Trending BMP, monitor UOP. If worsens consult nephro. 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
--- NOTE | 2019-06-16 07:44 | PN ---
Physical Exam: SUBJECTIVE: Patient seen and examined; low grade fever 2/7 so resident ordered cultures with now >100k cfu GNB. No true fever or signs of sepsois with Tmax x24 hrs 98.9. Given his fragile state we will have ID recommend potential abx rec for him and will ensure proper followup with urology. Unfortunately no UA was drawn at that time. FU with ID; likely DC today. GI report: Non-obstructing Schatzki ring 38 cm from the incisors with a 4cm hiatal hernia and non-bleeding vascular extasia win the glastric body, duodenal buld, and second part of the duodenum. Recommended avoiding NSAIDs. Dr. Soares spoke with Dr. Montoya who determined that with the current ectasias and the likely further scattered vascular ectasias throughout the intestinal tract that he shoulde be monitored for active bleeding when eliquis is restarted but no longer on antiplatelet therapy along with iron supplementation , IV if needed. IF concern for overt bleeding there may be indication for further scope at a tertiary care center. Advised that he should be on a well=- chewed, chopped diet to help prevent potential risk for food impaction. 10 sys ROS done and negative aside from HPI OBJECTIVE: Vital Signs Period Temp Pulse Resp BP Sys/Martin Pulse Ox Last 24 Hr 97.7 F-98.9 F 64-78 18-20 106-146/45-66 96-100 GENERAL: The patient is awake, alert, and fully oriented, in no acute distress. HEAD: Normal with no signs of trauma. EYES: PERRL, extraocular movements intact, sclera anicteric, conjunctiva clear. No ptosis. ENT: Ears normal, nares patent, oropharynx clear without exudates, moist mucous membranes. NECK: Trachea midline, full range of motion, supple. LUNGS: Breath sounds equal, clear to auscultation bilaterally, no wheezes, no crackles, no accessory muscle use. HEART: Regular rate and rhythm, S1, S2 without murmur, rub or gallop. ABDOMEN: Soft, nontender, nondistended, normoactive bowel sounds, no guarding, no rebound, no hepatosplenomegaly, no masses. EXTREMITIES: 2+ pulses, warm, well-perfused, no edema. NEUROLOGICAL: Cranial nerves II through XII grossly intact. Normal speech, gait not observed. PSYCH: Normal mood, normal affect. SKIN: Warm, dry, normal turgor, no rashes or lesions noted Laboratory Results - last 24 hr 06/11/19 06/15/19 06/15/19 23:00 07:10 07:10 WBC 3.6 L RBC 3.40 L Hgb 9.1 L Hct 28.2 L MCV 83.1 MCH 26.7 MCHC 32.2 RDW 19.7 H Plt Count 143 MPV 10.3 Sodium 139 Potassium 4.0 Chloride 110 H Carbon Dioxide 23 Anion Gap 6 L BUN 21.6 H Creatinine 1.3 Est GFR (CKD-EPI)AfAm 56.46 Est GFR (CKD-EPI)NonAf 48.72 Random Glucose 94 Calcium 7.7 L Phosphorus 3.3 Magnesium 2.1 Total Bilirubin 0.9 AST 19 ALT 19 Alkaline Phosphatase 62 Total Protein 4.6 L Albumin 2.4 L Blood Type A POSITIVE Antibody Screen Negative Crossmatch See Detail Active Medications Generic Name Dose Route Start Last Admin Trade Name Freq PRN Reason Stop Dose Admin Acetaminophen 650 mg 06/13/19 16:07 06/14/19 14:11 Tylenol - PO 650 mg Q6H PRN Administration PAIN LEVEL 6-10 Atorvastatin Calcium 20 mg 06/12/19 22:00 06/15/19 21:48 Lipitor - PO 20 mg HS [facility] Administration Clotrimazole 1 applic 06/12/19 10:00 06/15/19 21:48 Lotrimin 1% Cream - TP 1 applic BID [facility] Administration Docusate Sodium 100 mg 06/13/19 10:00 06/15/19 21:48 Colace - PO 100 mg BID [facility] Administration Ferrous Sulfate 325 mg 06/12/19 08:00 06/15/19 18:18 Feosol - PO 325 mg BIDWM [facility] Administration Finasteride 5 mg 06/13/19 10:00 06/15/19 09:55 Proscar - PO Not Given DAILY [facility] Sodium Chloride 1,000 mls @ 42 mls/hr 06/15/19 07:30 06/15/19 09:21 Normal Saline - IV 42 mls/hr ASDIR [facility] Administration Lactobacillus Acidophilus 1 tab 06/12/19 22:00 06/15/19 21:48 Bacid - PO 1 tab HS [facility] Administration Pantoprazole Sodium 20 mg 06/16/19 10:00 Protonix - PO DAILY [facility] Tamsulosin HCl 0.4 mg 06/12/19 08:30 06/15/19 20:24 Flomax - PO 0.4 mg 0830,1999 [facility] Administration Tizanidine HCl 2 mg 06/12/19 22:00 06/15/19 21:47 Tizanidine Hcl PO 2 mg HS [facility] Administration Valsartan 40 mg 06/12/19 10:00 06/15/19 09:55 Diovan - PO Not Given DAILY [facility] ASSESSMENT/PLAN: Presented for mechanical fall; negative orthostatics and no clear cardiogenic component. Found to have acute on chronic anemia with a postive FOBT and given -Potential UTI (Discussing with Dr. Barrera-Augmentin recommended for 5 days with continued followup with urology and primary care. Will forward culture results to his primary care physician. 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 If further bleeding may require intervention with tertiary care center. -Schatzki ring with Dysphagia (Chopped, well-chewed diet. Consider repeat EGD with dilation off AC if persisting symptoms) -Mechanical fall (PT eval pending, orthostatics negative, non-exertional with no syncopal components) -Chronic Anemia +/- Acute blood loss anemia (+FOBT, per above. On PO Iron at home; s/p normal c-scope 2 years ago and normal endoscopy within 5 years. Repeat Fe studies noted. Repeat as OP and continue to monitor counts on eliquis. 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 Full Code Visit type - Emergency Visit Emergency Visit: No - New Patient This patient is new to me today: No - Critical Care Critical Care patient: No
[2019-06-16] MEDS: PANTOPRAZOLE 20 MG TABLET PO SCH (09:05)
[2019-06-16] MEDS: DOCUSATE SODIUM 100 MG CAPSULE (FP) PO SCH ×2 (09:05→21:26)
[2019-06-16] MEDS: FERROUS SO4 325 MG TABLET (FP) PO SCH ×2 (09:05→18:09)
[2019-06-16] MEDS: FINASTERIDE 5 MG TABLET (FP) PO SCH (09:05)
[2019-06-16] MEDS: VALSARTAN 40 MG TABLET (FP) PO SCH (09:06)
[2019-06-16] MEDS: TAMSULOSIN HCL 0.4 MG CAP PO SCH ×2 (09:37→21:26)
[2019-06-16] MEDS: APIXABAN 2.5 MG TABLET PO SCH ×2 (09:37→21:26)
[2019-06-16] MEDS ORDERED: APIXABAN 2.5 MG TABLET PO SCH (10:00)
[2019-06-16] MEDS: CLOTRIMAZOLE 1% CREAM 15 GM TUBE TP SCH ×2 (10:47→21:27)
--- NOTE | 2019-06-16 11:54 | CON.ID ---
Consult Consult Specialty:: infectious diseases Referred by:: Reason for Consultation:: uti - History of Present Illness Chief Complaint: weakness History of Present Illness: 88 year old Japanese/Nauruan speaking male with a past medical history of hearing deficiency, GERD, HTN, chronic tobacco usage, Lung Ca(Stage IV w/ mets to L-spine, dx 2016, s/p RT and Keytruda w/ chemoradiation course complicated by pneumonitis--resolved and colitis--resolved), Aortic Stenosis s/p TAVR( [place], 04/20/19), pulmonary embolism (on Eliquis) presenting after an unwitnessed fall at home. History obtained in patient's [place] Japanese language. Patient stated that he was taking a turn with his walker and he fell forward hitting his head on the walker. He denied any prodromal symptoms of dizziness, lightheadedness, palpitations, chest pain, shortness of breath, nausea, vomiting, diaphoresis prior to the event to suggest a syncopal episode. Denied loss of consciousness. He noted that he had been having difficulty ambulating and felt weak in his feet and noted that he may have been dragging them as well as his walker. Also endorsed that he had not been eating and drinking well in the last week. Denied recent travel or sick contacts. Endorsed that he had been taking all of his medications regularly. Stated that he had generalized weakness and chronic back pain. Stated he had dark stools but had been taking iron pills for an extended period of time. Denied hematochezia, hematemesis, hematuria, hemoptosis. Noted that his last colonoscopy was 2 years prior with a physician not affiliated with this hospital which the patient stated was normal. Also stated that he had an endoscopy performed within the last 4 years which he noted was also normal. Additionally, endorsed difficulty urinating but no dysuria, frequency, urgency. Stated that he continued to smoke daily. - Past Medical History Cardio/Vascular: Yes: Aortic Stenosis, HTN - Alcohol/Substance Use Hx Alcohol Use: Yes (uses little wine every nt) - Smoking History Smoking history: Current some day smoker Have you smoked in the past 12 months: Yes Aproximately how many cigarettes per day: 0 Home Medications - Allergies Allergies/Adverse Reactions: Allergies Allergy/AdvReac Type Severity Reaction Status Date / Time No Known Allergies Allergy Unverified 06/11/19 19:55 - Home Medications Home Medications: Ambulatory Orders Biotin 5,000 mcg PO ASDIR capsule 11/25/16 Famotidine [Pepcid] 40 mg PO BID 04/27/19 Tizanidine HCl 2 mg PO Q12H PRN 04/27/19 Atorvastatin Ca [Lipitor] 20 mg PO HS tablet 04/30/19 Clopidogrel Bisulfate [Plavix] 75 mg PO DAILY #30 tablet 04/30/19 Docusate Sodium [Colace -] 100 mg PO BID capsule 04/30/19 Olmesartan Medoxomil [Benicar] 5 mg PO DAILY #30 tablet 04/30/19 Tamsulosin HCl [Flomax -] 0.4 mg PO #60 cap 04/30/19 Apixaban [Eliquis] 5 mg PO BID 06/12/19 Megestrol Acetate 800 mg PO DAILY 06/12/19 Umeclidinium Brm/Vilanterol Tr [Anoro Ellipta 62.5-25 Mcg INH] 1 puff PO DAILY 06/12/19 Physical Exam Vital Signs: Vital Signs Temperature 97.9 F 06/16/19 08:55 Pulse Rate 66 06/16/19 08:55 Respiratory Rate 20 06/16/19 08:55 Blood Pressure 133/84 06/16/19 08:55 O2 Sat by Pulse Oximetry (%) 96 06/15/19 21:00 Labs: CBC, BMP 06/15/19 07:10 06/15/19 07:10
--- NOTE | 2019-06-16 12:15 | DS ---
Physical Exam: SUBJECTIVE: Patient seen and examined OBJECTIVE: Vital Signs Period Temp Pulse Resp BP Sys/Martin Pulse Ox Last 24 Hr 97.7 F-98.9 F 64-78 18-20 106-146/45-84 96-100 PHYSICAL EXAM GENERAL: The patient is awake, alert, and fully oriented, in no acute distress. HEAD: Normal with no signs of trauma. EYES: PERRL, extraocular movements intact, sclera anicteric, conjunctiva clear. ENT: Ears normal, nares patent, oropharynx clear without exudates, moist mucous membranes. NECK: Trachea midline, full range of motion, supple. LUNGS: Breath sounds equal, clear to auscultation bilaterally, no wheezes, no crackles, no accessory muscle use. HEART: Regular rate and rhythm, S1, S2 without murmur, rub or gallop. ABDOMEN: Soft, nontender, nondistended, normoactive bowel sounds, no guarding, no rebound, no hepatosplenomegaly, no masses. EXTREMITIES: 2+ pulses, warm, well-perfused, no edema. NEUROLOGICAL: Cranial nerves II through XII grossly intact. Normal speech, gait not observed. PSYCH: Normal mood, normal affect. SKIN: Warm, dry, normal turgor, no rashes or lesions noted. LABS HOSPITAL COURSE: Date of Admission:06/11/19 Date of Discharge: 06/16/19 Minutes to complete discharge: 45 Discharge Summary Problems reviewed: Yes Reason For Visit: ANEMIA Current Active Problems Anemia (Acute) Condition: Stable - Instructions Referrals: Nasim Disla MD [Primary Care Provider] - Lauren Diop MD [Staff Physician] - - Home Medications Comprehensive Discharge Medication List: Ambulatory Orders Biotin 5,000 mcg PO ASDIR capsule 11/25/16 Famotidine [Pepcid] 40 mg PO BID 04/27/19 Tizanidine HCl 2 mg PO Q12H PRN 04/27/19 Atorvastatin Ca [Lipitor] 20 mg PO HS tablet 04/30/19 Clopidogrel Bisulfate [Plavix] 75 mg PO DAILY #30 tablet 04/30/19 Docusate Sodium [Colace -] 100 mg PO BID capsule 04/30/19 Olmesartan Medoxomil [Benicar] 5 mg PO DAILY #30 tablet 04/30/19 Tamsulosin HCl [Flomax -] 0.4 mg PO 0830,2000 #60 cap 04/30/19 Apixaban [Eliquis] 5 mg PO BID 06/12/19 Megestrol Acetate 800 mg PO DAILY 06/12/19 Umeclidinium Brm/Vilanterol Tr [Anoro Ellipta 62.5-25 Mcg INH] 1 puff PO DAILY 06/12/19 - Discharge Referral Referred to [facility] No
[2019-06-16] MEDS: AMOX TR/POT CLAV 500MG/125MG TABLETS (FP) PO SCH ×2 (12:45→18:09)
[2019-06-16 15:01] LABS: BASO % 0.5 % (0-2.0); EOS % 5.3 % (0-4.5); HEMOGLOBIN 9.4 GM/dL (11.7-16.9); LYMPH % 9.6 % (8-40); MCH 26.6 pg (25.7-33.7); MCHC 31.2 g/dl (32.0-35.9); MEAN CELL VOLUME 85.4 fl (80-96); MEAN PLT VOLUME 11.1 fl (7.5-11.1); NEUT % 80.6 % (42.8-82.8); PLATELET COUNT 155 K/MM3 (134-434); RBC 3.52 M/mm3 (4.00-5.60); RDW 19.3 % (11.9-15.9); WHITE BLOOD COUNT 2.8 K/mm3 (4.0-10.0)
[2019-06-16] MEDS: ACETAMINOPHEN 325 MG TABLET (FP) PO PRN (17:01)
[2019-06-16] MEDS: ATORVASTATIN CA 20 MG TABLET (FP) PO SCH (21:25)
[2019-06-16] MEDS: LACTOBACILLUS ACIDOPHILUS 1 TABLET PO SCH (21:26)
[2019-06-16] MEDS: TIZANIDINE HCL 2 MG TABLET PO SCH (21:27)
[2019-06-17] MEDS: TAMSULOSIN HCL 0.4 MG CAP PO SCH ×2 (09:00→21:54)
[2019-06-17] MEDS: PANTOPRAZOLE 20 MG TABLET PO SCH (09:00)
[2019-06-17] MEDS: FINASTERIDE 5 MG TABLET (FP) PO SCH (09:00)
[2019-06-17] MEDS: APIXABAN 2.5 MG TABLET PO SCH ×2 (09:00→21:55)
[2019-06-17 09:01] LABS: BASO % 0.4 % (0-2.0); EOS % 0.8 % (0-4.5); HEMATOCRIT 27.1 % (35.4-49); HEMOGLOBIN 8.8 GM/dL (11.7-16.9); LYMPH % 4.4 % (8-40); MCH 26.4 pg (25.7-33.7); MCHC 32.3 g/dl (32.0-35.9); MEAN CELL VOLUME 81.6 fl (80-96); MEAN PLT VOLUME 10.6 fl (7.5-11.1); MONO % 7.5 % (3.8-10.2); NEUT % 86.9 % (42.8-82.8); PLATELET COUNT 117 K/MM3 (134-434); RBC 3.32 M/mm3 (4.00-5.60); RDW 18.6 % (11.9-15.9); WHITE BLOOD COUNT 5.2 K/mm3 (4.0-10.0)
[2019-06-17] MEDS: VALSARTAN 40 MG TABLET (FP) PO SCH (09:01)
[2019-06-17] MEDS: AMOX TR/POT CLAV 500MG/125MG TABLETS (FP) PO SCH (09:01)
[2019-06-17] MEDS: FERROUS SO4 325 MG TABLET (FP) PO SCH ×2 (09:01→17:48)
[2019-06-17] MEDS: DOCUSATE SODIUM 100 MG CAPSULE (FP) PO SCH ×2 (09:01→21:55)
[2019-06-17] MEDS: CLOTRIMAZOLE 1% CREAM 15 GM TUBE TP SCH ×2 (09:03→21:56)
[2019-06-17 09:22] LABS: BLOOD UREA NITROGEN 25.2 mg/dL (7-18); CALCIUM 7.6 mg/dL (8.5-10.1); CREATININE 1.2 mg/dL (0.55-1.3); POTASSIUM 3.8 mmol/L (3.5-5.1)
[2019-06-17 10:24] LABS: EPI CELLS 0.3 /HPF (0-5/HPF); HYALINE CASTS 8 /lpf (0-8); URINE APPEARANCE CLEAR; URINE BACTERIA 24.8 /hpf (NEGATIVE); URINE BILIRUBIN NEGATIVE (NEGATIVE); URINE COLOR DK YELLOW; URINE GLUCOSE (UA) NEGATIVE (NEGATIVE); URINE KETONE TRACE (NEGATIVE); URINE LEUK ESTERASE 1+ (NEGATIVE); URINE NITRITE NEGATIVE (NEGATIVE); URINE PROTEIN TRACE (NEGATIVE); URINE RBC 6 /hpf (0-4); URINE WBC 23 /hpf (0-5)
--- NOTE | 2019-06-17 11:11 | PN ---
Progress Note, Physician History of Present Illness: according to the daughter patient spiked fever had chills retention of urine currently better - Current Medication List Current Medications: Active Medications Acetaminophen (Tylenol -) 650 mg PO Q6H PRN PRN Reason: PAIN LEVEL 6-10 Last Admin: 06/16/19 17:01 Dose: 650 mg Apixaban (Eliquis -) 5 mg PO BID [facility] Last Admin: 06/17/19 09:00 Dose: 5 mg Atorvastatin Calcium (Lipitor -) 20 mg PO HS [facility] Last Admin: 06/16/19 21:25 Dose: 20 mg Clotrimazole (Lotrimin 1% Cream -) 1 applic TP BID [facility] Last Admin: 06/17/19 09:03 Dose: 1 applic Docusate Sodium (Colace -) 100 mg PO BID [facility] Last Admin: 06/17/19 09:01 Dose: 100 mg Ferrous Sulfate (Feosol -) 325 mg PO BIDWM [facility] Last Admin: 06/17/19 09:01 Dose: 325 mg Finasteride (Proscar -) 5 mg PO DAILY [facility] Last Admin: 06/17/19 09:00 Dose: 5 mg Lactobacillus Acidophilus (Bacid -) 1 tab PO [facility] Last Admin: 06/16/19 21:26 Dose: 1 tab Pantoprazole Sodium (Protonix -) 20 mg PO DAILY [facility] Last Admin: 06/17/19 09:00 Dose: 20 mg Tamsulosin HCl (Flomax -) 0.8 mg PO 829,1999 [facility] Last Admin: 06/17/19 09:00 Dose: 0.8 mg Tizanidine HCl (Tizanidine Hcl) 2 mg PO [facility] Last Admin: 06/16/19 21:27 Dose: 2 mg Valsartan (Diovan -) 40 mg PO DAILY [facility] Last Admin: 06/17/19 09:01 Dose: 40 mg - Objective Vital Signs: Vital Signs Temperature 98.1 F 06/17/19 09:04 Pulse Rate 80 06/17/19 09:04 Respiratory Rate 18 06/17/19 09:04 Blood Pressure 115/56 L 06/17/19 09:04 O2 Sat by Pulse Oximetry (%) 96 06/16/19 22:00 Constitutional: Yes: No Distress, Calm Cardiovascular: Yes: S1, S2 Respiratory: Yes: Regular, CTA Bilaterally Gastrointestinal: Yes: Normal Bowel Sounds, Soft Musculoskeletal: Yes: WNL Extremities: Yes: WNL Neurological: Yes: Alert, Oriented Psychiatric: Yes: Alert, Oriented Labs: CBC, BMP 06/17/19 08:35 06/17/19 08:35 INR, PTT INR 1.17 (0.83-1.09) H 06/12/19 05:30 Assessment/Plan 88 y/o M pmh GERD, HTN, chronic tobacco usage, 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
[2019-06-17] MEDS ORDERED: DEXTROSE 5%-WATER - 50 ML IVPB ONE (12:11)
[2019-06-17] MEDS ORDERED: cefTRIAXone SODIUM 1 GM VIAL ONE (12:11)
[2019-06-17] MEDS: CEFTRIAXONE 1 GM in DEXTROSE 5%-WATER - 50 ML IVPB SCH (12:45)
--- NOTE | 2019-06-17 17:42 | PN ---
Physical Exam: SUBJECTIVE: Patient seen and examined. Hearing aid in. Spiked a fever overnight , blood cultures and urine culture taken. No c/o. Currently Afebrile and asymptomatic. Denies f/c/n/v/d/sob,cp OBJECTIVE: Vital Signs Period Temp Pulse Resp BP Sys/Martin Pulse Ox Last 24 Hr 97.7 F-99.6 F 77-94 18-20 105-137/43-95 96-96 GENERAL: The patient is awake, alert, and fully oriented, in no acute distress. Elderly, cachetic EYES: PERRL, extraocular movements intact, sclera anicteric, conjunctiva clear. No ptosis. ENT: dry mucous membranes. NECK: Trachea midline, full range of motion, supple. LUNGS: Breath sounds equal, clear to auscultation bilaterally, no wheezes, no crackles HEART: Regular rate and rhythm, S1, S2 without murmur, rub or gallop. ABDOMEN: Soft, nontender, nondistended, normoactive bowel sounds, no guarding, EXTREMITIES: 2+ pulses, warm, well-perfused, no edema. NEUROLOGICAL: Cranial nerves II through XII grossly intact. PSYCH: Normal mood, normal affect. SKIN: Warm, dry, normal turgor, no rashes or lesions noted Laboratory Results - last 24 hr 06/17/19 06/17/19 06/17/19 08:35 08:35 09:42 WBC 5.2 RBC 3.32 L Hgb 8.8 L Hct 27.1 L MCV 81.6 MCH 26.4 MCHC 32.3 RDW 18.6 H Plt Count 117 L D MPV 10.6 Absolute Neuts (auto) 4.5 Neutrophils % 86.9 H Lymphocytes % 4.4 L D Monocytes % 7.5 D Eosinophils % 0.8 D Basophils % 0.4 Nucleated RBC % 0 Sodium 140 Potassium 3.8 Chloride 112 H Carbon Dioxide 23 Anion Gap 5 L BUN 25.2 H Creatinine 1.2 Est GFR (CKD-EPI)AfAm 62.20 Est GFR (CKD-EPI)NonAf 53.67 Random Glucose 108 H Calcium 7.6 L Urine Color Dk yellow Urine Appearance Clear Urine pH 5.0 Ur Specific [place] 1.022 Urine Protein Trace Urine Glucose (UA) Negative Urine Ketones Trace H Urine Blood Negative Urine Nitrite Negative Urine Bilirubin Negative Urine Urobilinogen 1.0 Ur Leukocyte Esterase 1+ H Urine WBC (Auto) 23 Urine RBC (Auto) 6 Urine Casts (Auto) 8 U Epithel Cells (Auto) 0.3 Urine Bacteria (Auto) 24.8 Active Medications Generic Name Dose Route Start Last Admin Trade Name Freq PRN Reason Stop Dose Admin Acetaminophen 650 mg 06/13/19 16:07 06/16/19 17:01 Tylenol - PO 650 mg Q6H PRN Administration PAIN LEVEL 6-10 Apixaban 5 mg 06/16/19 10:00 06/17/19 09:00 Eliquis - PO 5 mg BID DAVONTE Administration Atorvastatin Calcium 20 mg 06/12/19 22:00 06/16/19 21:25 Lipitor - PO 20 mg HS [facility]ONTE Administration Clotrimazole 1 applic 06/12/19 10:00 06/17/19 09:03 Lotrimin 1% Cream - TP 1 applic BID [facility]ONTE Administration Docusate Sodium 100 mg 06/13/19 10:00 06/17/19 09:01 Colace - PO 100 mg BID [facility]ONTE Administration Ferrous Sulfate 325 mg 06/12/19 08:00 06/17/19 09:01 Feosol - PO 325 mg BIDWM [facility]ONTE Administration Finasteride 5 mg 06/13/19 10:00 06/17/19 09:00 Proscar - PO 5 mg DAILY [facility] Administration Ceftriaxone Sodium 1 gm/ 50 mls @ 200 mls/hr 06/17/19 11:15 06/17/19 12:45 Dextrose IVPB 200 mls/hr DAILY [facility]ONTE Administration Protocol Lactobacillus Acidophilus 1 tab 06/12/19 22:00 06/16/19 21:26 Bacid - PO 1 tab HS [facility]ONTE Administration Pantoprazole Sodium 20 mg 06/16/19 10:00 06/17/19 09:00 Protonix - PO 20 mg DAILY [facility] Administration Tamsulosin HCl 0.8 mg 06/16/19 20:00 06/17/19 09:00 Flomax - PO 0.8 mg 0830,2000 [facility]ONTE Administration Tizanidine HCl 2 mg 06/12/19 22:00 06/16/19 21:27 Tizanidine Hcl PO 2 mg HS [facility]TE Administration Valsartan 40 mg 06/12/19 10:00 06/17/19 09:01 Diovan - PO 40 mg DAILY [facility] Administration ASSESSMENT/PLAN: 88 y/o M pmh GERD, HTN, chronic tobacco usage, 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 Schatzki ring with Dysphagia (Chopped, well-chewed diet. Consider repeat EGD with dilation off AC if persisting symptoms) #GELY US renal/bladder: b/l ureteral jets # s/p TAVR His fishing gear mechanic Dr. Jay- [facility]. #Hx of biliac iliac artery stents eliquis #Stage IV lung cancer with metastases to L-spine Treated with RT in the past, currently on Keytruda only #HLD Continue Lipitor #HTN Valsartan #DVT ppx SCDs FEN NPO monitor lytes IVF at 42 Dispo: f/u CBC at 6pm, monitor anemia, f/u SW about home infusion Visit type - Emergency Visit Emergency Visit: Yes ED Registration Date: 06/11/19 Care time: The patient presented to the Emergency Department on the above date and was hospitalized for further evaluation of their emergent condition. - New Patient This patient is new to me today: Yes Date on this admission: 06/17/19 - Critical Care Critical Care patient: No - Discharge Referral Referred to [facility] No ATTENDING PHYSICIAN STATEMENT I saw and evaluated the patient. I reviewed the resident's note and discussed the case with the resident. I agree with the resident's findings and plan as documented. SUBJECTIVE: OBJECTIVE: ASSESSMENT AND PLAN:
--- NOTE | 2019-06-17 19:06 | PN ---
Teaching Attending Note Name of Resident: Keagan Casey ATTENDING PHYSICIAN STATEMENT I saw and evaluated the patient. I reviewed the resident's note and discussed the case with the resident. I agree with the resident's findings and plan as documented. Seen and examined; please see resident note for further historical information. I personally verified all huston historical information and exam findings. Personally interpreted all imaging and diagnostics and reviewed appropriate consults. I reviewed all labs and vital signs as per resident note and EMR as documented. I agree with the above assessment and plan unless supplemented by myself in the following. Patient was found to have spiked a fever overnight and to have over 200 cc on repeat PVR despite no difficulties urinating. Due to this, as well as the sensitivities with microbiology, he will be kept an additional day inpatient and home antibiotic services will be coordinated. The family is in agreement with this. Clinical picture remains the same. On ceftriaxone per Dr. Barrera 10 item review of systems completed and is negative aside from as discussed in the subjective data in my own/the resident documentation. VS, labs, imaging reviewed NAD, AAO, resting comfortably in bed. RRR s1/2 no mgr Normal muscle tone, moves all 5 extremities with normal apparent strength Neck is supple, trachea midline, no jass LN Lungs CTAB with sym expansion NT ND +BS no jass organomegaly CN2-12 wnl; no FND NC AT EOMI PERRLA Normal mood, appropriate behavior, euthymic affect No skin breakdown or rashes noted Assessment and plan: Agree with list as per resident note
[2019-06-17] MEDS: ATORVASTATIN CA 20 MG TABLET (FP) PO SCH (21:54)
[2019-06-17] MEDS: LACTOBACILLUS ACIDOPHILUS 1 TABLET PO SCH (21:55)
[2019-06-17] MEDS: TIZANIDINE HCL 2 MG TABLET PO SCH (22:17)
[2019-06-18] MEDS ORDERED: cefTRIAXone SODIUM 1 GM VIAL ONE (08:46)
[2019-06-18] MEDS ORDERED: DEXTROSE 5%-WATER - 50 ML IVPB ONE (08:46)
[2019-06-18] MEDS ORDERED: PT OWN MED DRAWER 7, Y5N ONE (08:46)
[2019-06-18] MEDS: DOCUSATE SODIUM 100 MG CAPSULE (FP) PO SCH (09:31)
[2019-06-18] MEDS: FINASTERIDE 5 MG TABLET (FP) PO SCH (09:31)
[2019-06-18] MEDS: PANTOPRAZOLE 20 MG TABLET PO SCH (09:32)
[2019-06-18] MEDS: FERROUS SO4 325 MG TABLET (FP) PO SCH (09:32)
[2019-06-18] MEDS: VALSARTAN 40 MG TABLET (FP) PO SCH (09:32)
[2019-06-18] MEDS: CEFTRIAXONE 1 GM in DEXTROSE 5%-WATER - 50 ML IVPB SCH (09:32)
[2019-06-18] MEDS: APIXABAN 2.5 MG TABLET PO SCH (09:32)
[2019-06-18] MEDS: TAMSULOSIN HCL 0.4 MG CAP PO SCH (10:00)
--- NOTE | 2019-06-18 10:05 | PN ---
Progress Note, Physician Chief Complaint: anemia History of Present Illness: fatigued, sleepy no sob, orthopnea no cp, palpit no more rigors - Current Medication List Current Medications: Active Medications Acetaminophen (Tylenol -) 650 mg PO Q6H PRN PRN Reason: PAIN LEVEL 6-10 Last Admin: 06/16/19 17:01 Dose: 650 mg Apixaban (Eliquis -) 5 mg PO BID [facility] Last Admin: 06/18/19 09:32 Dose: 5 mg Atorvastatin Calcium (Lipitor -) 20 mg PO HS [facility] Last Admin: 06/17/19 21:54 Dose: 20 mg Clotrimazole (Lotrimin 1% Cream -) 1 applic TP BID [facility] Last Admin: 06/17/19 21:56 Dose: 1 applic Docusate Sodium (Colace -) 100 mg PO BID [facility] Last Admin: 06/18/19 09:31 Dose: 100 mg Ferrous Sulfate (Feosol -) 325 mg PO BIDWM [facility] Last Admin: 06/18/19 09:32 Dose: 325 mg Finasteride (Proscar -) 5 mg PO DAILY [facility] Last Admin: 06/18/19 09:31 Dose: 5 mg Ceftriaxone Sodium 1 gm/ (Dextrose) 50 mls @ 200 mls/hr IVPB DAILY [facility]; Protocol Last Admin: 06/18/19 09:32 Dose: 200 mls/hr Lactobacillus Acidophilus (Bacid -) 1 tab PO [facility] Last Admin: 06/17/19 21:55 Dose: 1 tab Pantoprazole Sodium (Protonix -) 20 mg PO DAILY [facility] Last Admin: 06/18/19 09:32 Dose: 20 mg Tamsulosin HCl (Flomax -) 0.8 mg PO [facility] Last Admin: 06/18/19 10:00 Dose: 0.8 mg Tizanidine HCl (Tizanidine Hcl) 2 mg PO [facility] Last Admin: 06/17/19 22:17 Dose: 2 mg Valsartan (Diovan -) 40 mg PO DAILY [facility] Last Admin: 06/18/19 09:32 Dose: 40 mg - Objective Vital Signs: Vital Signs Temperature 98.8 F 06/18/19 09:39 Pulse Rate 72 06/18/19 09:39 Respiratory Rate 18 06/18/19 09:39 Blood Pressure 120/64 06/18/19 09:39 O2 Sat by Pulse Oximetry (%) 97 06/17/19 21:00 Constitutional: Yes: Well Nourished, No Distress, Calm Cardiovascular: Yes: Regular Rate and Rhythm, Murmur (1/6 early FLACO rusb), S1, S2. No: Gallop Respiratory: Yes: Regular, CTA Bilaterally. No: Accessory Muscle Use, Rales Extremities: No: Cold Edema: No Neurological: Yes: Alert, Oriented Psychiatric: No: Agitated Labs: INR, PTT INR 1.17 (0.83-1.09) H 06/12/19 05:30 Assessment/Plan Echo 04/27/19: nl LVEF. nl RV. trace AI s/p TAVR. 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 deferring rpt EGD with AVM cautery given risk for procedure, and hi likelihood in this setting of AVMs in small bowel as well -plan was for resuming NOAC without plavix, close monitoring of H/H -counts thus far stable, continue same plan (note: eliquis 5 bid dose here for tx of VTE) hx of PE (segmental branch): -provoked by lung malignancy and prolonged sedentary status -cont eliquis, monitor H/H (will set up weekly home draws to begin this week, once discharged) s/p TAVR: -normal valve fxn on echo -per d/w structural valve team, ok for NOAC without anti-plt given bleeding risk UTI, rigors: -Blood Cxs remain neg to date -abx per primary -hemodynamically stable HTN: -stable, cont home meds CKD: -cr stable here lung cancer: -per onc ([facility]) elevated trop: -borderline trop elevation with flat trend and no ecg changes, not c/w acs
[2019-06-18] MEDS ORDERED: APIXABAN 2.5 MG TABLET PO SCH (10:07)
[2019-06-18 10:09] LABS: HEMATOCRIT 26.2 % (35.4-49); HEMOGLOBIN 8.4 GM/dL (11.7-16.9); MCH 25.8 pg (25.7-33.7); MCHC 32.1 g/dl (32.0-35.9); MEAN CELL VOLUME 80.5 fl (80-96); MEAN PLT VOLUME 10.7 fl (7.5-11.1); PLATELET COUNT 131 K/MM3 (134-434); RBC 3.26 M/mm3 (4.00-5.60); RDW 18.5 % (11.9-15.9); WHITE BLOOD COUNT 4.1 K/mm3 (4.0-10.0)
[2019-06-18 10:30] LABS: ALBUMIN 2.1 g/dl (3.4-5.0); BILIRUBIN,TOTAL 0.4 mg/dL (0.2-1); BLOOD UREA NITROGEN 21.6 mg/dL (7-18); CALCIUM 7.6 mg/dL (8.5-10.1); CREATININE 1.2 mg/dL (0.55-1.3); POTASSIUM 3.9 mmol/L (3.5-5.1); TOT PROT 4.3 g/dl (6.4-8.2)
[2019-06-18] MEDS: CLOTRIMAZOLE 1% CREAM 15 GM TUBE TP SCH (10:59)
--- NOTE | 2019-06-18 11:16 | PN ---
Progress Note, Physician History of Present Illness: stable looks much better daughter in room - Current Medication List Current Medications: Active Medications Acetaminophen (Tylenol -) 650 mg PO Q6H PRN PRN Reason: PAIN LEVEL 6-10 Last Admin: 06/16/19 17:01 Dose: 650 mg Apixaban (Eliquis -) 5 mg PO BID [facility] Atorvastatin Calcium (Lipitor -) 20 mg PO [facility] Last Admin: 06/17/19 21:54 Dose: 20 mg Clotrimazole (Lotrimin 1% Cream -) 1 applic TP BID [facility] Last Admin: 06/18/19 10:59 Dose: 1 applic Docusate Sodium (Colace -) 100 mg PO BID [facility] Last Admin: 06/18/19 09:31 Dose: 100 mg Ferrous Sulfate (Feosol -) 325 mg PO BIDWM [facility] Last Admin: 06/18/19 09:32 Dose: 325 mg Finasteride (Proscar -) 5 mg PO DAILY [facility] Last Admin: 06/18/19 09:31 Dose: 5 mg Ceftriaxone Sodium 1 gm/ (Dextrose) 50 mls @ 200 mls/hr IVPB DAILY [facility]; Protocol Last Admin: 06/18/19 09:32 Dose: 200 mls/hr Lactobacillus Acidophilus (Bacid -) 1 tab PO [facility] Last Admin: 06/17/19 21:55 Dose: 1 tab Pantoprazole Sodium (Protonix -) 20 mg PO DAILY [facility] Last Admin: 06/18/19 09:32 Dose: 20 mg Tamsulosin HCl (Flomax -) 0.8 mg PO [facility] Last Admin: 06/18/19 10:00 Dose: 0.8 mg Tizanidine HCl (Tizanidine Hcl) 2 mg PO [facility] Last Admin: 06/17/19 22:17 Dose: 2 mg Valsartan (Diovan -) 40 mg PO DAILY [facility] Last Admin: 06/18/19 09:32 Dose: 40 mg - Objective Vital Signs: Vital Signs Temperature 98.8 F 06/18/19 09:39 Pulse Rate 72 06/18/19 09:39 Respiratory Rate 18 06/18/19 09:39 Blood Pressure 120/64 06/18/19 09:39 O2 Sat by Pulse Oximetry (%) 97 06/17/19 21:00 Constitutional: Yes: No Distress, Calm Cardiovascular: Yes: S1, S2 Respiratory: Yes: Regular, CTA Bilaterally Gastrointestinal: Yes: Normal Bowel Sounds, Soft Musculoskeletal: Yes: WNL Extremities: Yes: Other Neurological: Yes: Alert, Oriented Psychiatric: Yes: Alert, Oriented Labs: CBC, BMP 06/18/19 09:22 06/18/19 09:22 INR, PTT INR 1.17 (0.83-1.09) H 06/12/19 05:30 Assessment/Plan 88 y/o M pmh GERD, HTN, chronic tobacco usage, 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
--- NOTE | 2019-06-18 14:30 | DS ---
Physical Exam: SUBJECTIVE: Patient seen and examined. Hearing aid in. No c/o. Currently Afebrile and asymptomatic. Denies f/c/n/v/d/sob,cp OBJECTIVE: Vital Signs Period Temp Pulse Resp BP Sys/Martin Pulse Ox Last 24 Hr 98.1 F-99.3 F 72-85 18-18 105-143/43-64 97 PHYSICAL EXAM GENERAL: The patient is awake, alert, and fully oriented, in no acute distress. Elderly, cachetic EYES: PERRL, extraocular movements intact, sclera anicteric, conjunctiva clear. No ptosis. ENT: dry mucous membranes. NECK: Trachea midline, full range of motion, supple. LUNGS: Breath sounds equal, clear to auscultation bilaterally, no wheezes, no crackles HEART: Regular rate and rhythm, S1, S2 without murmur, rub or gallop. ABDOMEN: Soft, nontender, nondistended, normoactive bowel sounds, no guarding, EXTREMITIES: 2+ pulses, warm, well-perfused, no edema. NEUROLOGICAL: Cranial nerves II through XII grossly intact. PSYCH: Normal mood, normal affect. SKIN: Warm, dry, normal turgor, no rashes or lesions noted LABS Laboratory Results - last 24 hr 06/18/19 06/18/19 09:22 09:22 WBC 4.1 RBC 3.26 L Hgb 8.4 L Hct 26.2 L MCV 80.5 MCH 25.8 MCHC 32.1 RDW 18.5 H Plt Count 131 L MPV 10.7 Sodium 140 Potassium 3.9 Chloride 110 H Carbon Dioxide 22 Anion Gap 7 L BUN 21.6 H Creatinine 1.2 Est GFR (CKD-EPI)AfAm 62.20 Est GFR (CKD-EPI)NonAf 53.67 Random Glucose 140 H Calcium 7.6 L Total Bilirubin 0.4 AST 13 L ALT 23 Alkaline Phosphatase 68 Total Protein 4.3 L Albumin 2.1 L Microbiology 06/15/19 07:15 Blood - Peripheral Venous Blood Culture - Preliminary NO GROWTH OBTAINED AFTER 72 HOURS, INCUBATION TO CONTINUE FOR 2 DAYS. 06/15/19 07:10 Blood - Peripheral Venous Blood Culture - Preliminary NO GROWTH OBTAINED AFTER 72 HOURS, INCUBATION TO CONTINUE FOR 2 DAYS. 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 The fall was likely 2/2 to mechanical fall, head trauma, no LOC. For the anemia Pt was transfused 2 units of PRBC, w/ IVF and Stool occult blood (+)- likely from Iron supplement. CT head was neg, CXR was neg but pt did have troponemia which resolved. Patient reports normal colonoscopy within 2 years and normal endoscopy within 5 years. Once pt was stable EGD was r/p and showed Angiodysplasia throughout GI tract-stomach and duodenum. Schatzki ring with Dysphagia (Chopped, well-chewed diet. Consider repeat EGD with dilation off AC if persisting symptoms). Pt also had a UTI with e-coli and was started on Augmentin. However, she was found to be resistant to most PO abx and was set up with home infusion for IV ceftriaxone. She did not need a PICC line as it was only for 3 days and could be given with her IV site. 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 Pt was sent home on eliquis, iron and protonix. Pt has Stage IV lung cancer with metastases to L-spine treated with RT in the past, currently on Keytruda only was referred to his oncologist and given referral for our oncologist, GI and Urology- Dr. Fortune. CXR noting tortuosity and calcification of thoracic aorta and degenerative changes of the thoracic spine, no acute disease process Head CT with no acute pathology, cervical spine CT with moderately severe degenerative arthritic changes with no acute fracture or pathology Echo in Apr 2019 noting EF 50-55%, impaired LV relaxation, borderline dilated left atrium, mild to moderate mitral annular calcification, mild mitral valve thickening, mild tricuspid regurg, trace aortic regurg, s/ps TAVR EGD: Angiodysplasia throughout GI tract-stomach and duodenum. Schatzki ring with Dysphagia (Chopped, well-chewed diet. Consider repeat EGD with dilation off AC if persisting symptoms) Date of Discharge: 06/18/19 Minutes to complete discharge: 40 Discharge Summary Problems reviewed: Yes Reason For Visit: ANEMIA Current Active Problems Anemia (Acute) Condition: Stable - Instructions Diet, Activity, Other Instructions: You were seen for multiple medical issues including a fall, potential UTI, chronic GI bleed secondary to multiple vascular ectasias likely contributing to chronic anemia. You will be discharged on eliquis 5mg BID for AC with your plavix being held due to GI bleed risk. You will be on a course of Augmentin for your urinary retention. You are to continue your home iron. Followup will include (as delineated in instuctions) -PCP -Cardiology -Gastroenterology. If you experience bleeding, BRBPR, or vomiting blood please come back to the ER immediately You had a borderline elevated PVR but were able to urinate without difficulty prior to DC; you were continued on tamsulosin and finasteride and have to followup with your loom doffer. You were referred to urology, as well. Please keep your folowup visits Stop: Plavix Start: Protonix 20mg PO QD, Ceftriaxone (course of abx per ID for UTI) Monitor for urinary retention, monitor for signs and symptoms of systemic illness. Referrals: Neo Israel DO [Staff Physician] - 1 Week Nasim Disla MD [Primary Care Provider] - (3-5 days) Lauren Diop MD [Staff Physician] - 1 Week Jacinto Fortune MD [Staff Physician] - Disposition: HOME - Home Medications Comprehensive Discharge Medication List: Ambulatory Orders Biotin 5,000 mcg PO ASDIR capsule 11/25/16 Famotidine [Pepcid] 40 mg PO BID 04/27/19 Tizanidine HCl 2 mg PO Q12H PRN 04/27/19 Atorvastatin Ca [Lipitor] 20 mg PO HS tablet 04/30/19 Docusate Sodium [Colace -] 100 mg PO BID capsule 04/30/19 Olmesartan Medoxomil [Benicar] 5 mg PO DAILY #30 tablet 04/30/19 Tamsulosin HCl [Flomax -] 0.4 mg PO #60 cap 04/30/19 Apixaban [Eliquis] 5 mg PO BID 06/12/19 Megestrol Acetate 800 mg PO DAILY 06/12/19 Umeclidinium Brm/Vilanterol Tr [Anoro Ellipta 62.5-25 Mcg INH] 1 puff PO DAILY 06/12/19 Ferrous Sulfate [Feosol] 325 mg PO BIDWM #60 ud 06/16/19 Lactobacillus Acidophilus [Bacid -] 1 tab PO HS #30 tab 06/16/19 Pantoprazole Sodium [Protonix -] 20 mg PO DAILY #30 tablet.ec 06/16/19 Ceftriaxone [Rocephin -] 1 gm IVPB DAILY #3 vial 06/18/19 This patient is new to me today: Yes Date on this admission: 06/18/19 Emergency Visit: Yes ED Registration Date: 06/11/19 Care time: The patient presented to the Emergency Department on the above date and was hospitalized for further evaluation of their emergent condition. Critical Care patient: No - Discharge Referral Referred to [facility] Med [facility] No ATTENDING PHYSICIAN STATEMENT I saw and evaluated the patient. I reviewed the resident's note and discussed the case with the resident. I agree with the resident's findings and plan as documented. SUBJECTIVE: OBJECTIVE: ASSESSMENT AND PLAN:
[2019-06-18 15:53] VITALS: BP 118/48; PULSE 73; TEMP 98.4
[2019-06-18] MEDS ORDERED: APIXABAN 5 MG TABLET PO SCH (22:00)
== END 2019-06-18 15:52 | disposition home or self-care (01) | DRG 180 ==
LOC: JER 17:34 → JERBED 22:56 → J5S 06-12 11:19
PROVIDERS: ADMIT Internal Medicine; ATTEND Internal Medicine
PROC: 30233N1 Transfusion of Nonautologous Red Blood Cells into Peripheral Vein, Percutaneous Approach (ICD-10-PCS; 2019-06-12)
PROC: 0FPB8DZ Removal of Intraluminal Device from Hepatobiliary Duct, Via Natural or Artificial Opening Endoscopic (ICD-10-PCS; 2019-06-15)
PROC: BF10YZZ Fluoroscopy of Bile Ducts using Other Contrast (ICD-10-PCS; 2019-06-15)
PROC: 0FC98ZZ Extirpation of Matter from Common Bile Duct, Via Natural or Artificial Opening Endoscopic (ICD-10-PCS; principal; 2019-06-15 12:30)
DX: C34.90 Malignant neoplasm of unspecified part of unspecified bronchus or lung (principal); E43 Unspecified severe protein-calorie malnutrition; D62 Acute posthemorrhagic anemia; N17.9 Acute kidney failure, unspecified; I24.8 Other forms of acute ischemic heart disease; R64 Cachexia; N39.0 Urinary tract infection, site not specified; C79.51 Secondary malignant neoplasm of bone; Z68.1 Body mass index [BMI] 19.9 or less, adult; D50.9 Iron deficiency anemia, unspecified; K31.819 Angiodysplasia of stomach and duodenum without bleeding; J43.9 Emphysema, unspecified; K80.50 Calculus of bile duct without cholangitis or cholecystitis without obstruction; K21.9 Gastro-esophageal reflux disease without esophagitis; N40.0 Benign prostatic hyperplasia without lower urinary tract symptoms; E78.5 Hyperlipidemia, unspecified; B37.9 Candidiasis, unspecified; K44.9 Diaphragmatic hernia without obstruction or gangrene; I12.9 Hypertensive chronic kidney disease with stage 1 through stage 4 chronic kidney disease, or unspecified chronic kidney disease; N18.9 Chronic kidney disease, unspecified
CPT/HCPCS: 36415; 36430; 36511; 70450-TC; 71045-TC-FY; 72125-TC; 76775-TC; 76856-TC; 80048; 80053; 81003; 82272; 82436; 82550; 82565; 82728; 83540; 83550; 83615; 83735; 83880; 84100; 84133; 84300; 84466; 84484; 85025; 85027; 85044; 85610; 85730; 86850; 86900; 86901; 86922; 87040; 87086; 87186; 93005; 93010; 97116-GP; 97161-GP; 99285-25; J7030; P9038; P9058

== ENCOUNTER 2019-07-04 11:08 | Day surgery (SDC) | payer OTHER ==
[2019-07-04 11:33] VITALS: BP 120/58; PULSE 77; TEMP 98.3; BMI 17.2
[2019-07-04] MEDS ORDERED: IRON SUCROSE INJECTION 100 MG in SODIUM CHLORIDE 100 ML IVPB ONE (12:00)
== END 2019-07-04 12:45 | disposition home or self-care (01) ==
LOC: FM/S 11:08 → FINFUSION 11:08
PROVIDERS: ATTEND Internal Medicine Hematology & Oncology
PROC: 3E033GC Introduction of Other Therapeutic Substance into Peripheral Vein, Percutaneous Approach (ICD-10-PCS; principal; 2019-07-04)
DX: D64.9 Anemia, unspecified (principal)
CPT/HCPCS: 96365; J1756

== ENCOUNTER 2019-07-11 11:01 | Day surgery (SDC) | payer OTHER ==
[2019-07-11 11:52] VITALS: BP 122/59; PULSE 89; TEMP 98; BMI 19.0
[2019-07-11] MEDS ORDERED: IRON SUCROSE INJECTION 100 MG in SODIUM CHLORIDE 100 ML IVPB ONE (12:30)
== END 2019-07-11 12:55 | disposition home or self-care (01) ==
LOC: FINFUSION 11:01 → FM/S 11:09 → FINFUSION 12:55
PROVIDERS: ATTEND Internal Medicine Hematology & Oncology
PROC: 3E033GC Introduction of Other Therapeutic Substance into Peripheral Vein, Percutaneous Approach (ICD-10-PCS; principal; 2019-07-11)
DX: D64.9 Anemia, unspecified (principal)
CPT/HCPCS: 96365; J1756

== ENCOUNTER 2019-07-20 10:59 | Day surgery (SDC) | payer OTHER ==
[2019-07-20 11:23] VITALS: BP 123/50; PULSE 77; TEMP 97.9; BMI 18.2
[2019-07-20] MEDS ORDERED: IRON SUCROSE INJECTION 100 MG in SODIUM CHLORIDE 100 ML IVPB ONE (11:45)
== END 2019-07-20 12:30 | disposition home or self-care (01) ==
LOC: FINFUSION 10:59 → FM/S 11:02 → FINFUSION 12:30
PROVIDERS: ATTEND Internal Medicine Hematology & Oncology
PROC: 3E033GC Introduction of Other Therapeutic Substance into Peripheral Vein, Percutaneous Approach (ICD-10-PCS; principal; 2019-07-20)
DX: D64.9 Anemia, unspecified (principal)
CPT/HCPCS: 96365; J1756